=== PATIENT | female | born 1960 | race Caucasian/White ===

== ENCOUNTER → 2019-05-29 11:09 | Outpatient (CLI) | payer MEDICARE, SELFPAY ==
[2019-05-29 11:54] LABS: Alanine Aminotransferase 27 U/L (12-78); Albumin Level 3.6 gm/dL (3.4-5.0); Alkaline Phosphatase 108 U/L (46-116); Aspartate Amino Transferase 15 U/L (15-37); Bilirubin,Direct 0.1 mg/dL (0.0-0.2); Bilirubin,Indirect 0.2 mg/dL (0.0-0.9); Bilirubin,Total 0.3 mg/dL (0.2-1.0); Chol/HDL Ratio 5.2 (1-3.5); Cholesterol 193 mg/dL (140-200); HDL Cholesterol 37 mg/dL (29-89); LDL Cholesterol 124 mg/dL (0-130); Total Protein,Serum 7.4 gm/dL (6.4-8.2); Triglycerides 160 mg/dL (30-200); VLDL Cholesterol 32 mg/dL (0-40)
== END ==
PROVIDERS: Visit Provider Internal Medicine Cardiovascular Disease
DX: E78.5 Hyperlipidemia, unspecified (principal); I25.10 Atherosclerotic heart disease of native coronary artery without angina pectoris
CPT/HCPCS: 36415; 80061; 80076

== ENCOUNTER 2019-05-31 09:49 | Observation (INO) ==
--- NOTE | 2019-05-31 09:56 | Emergency Department Note ---
ED Disposition Clinical Impression: Chest pain Disposition: Admitted As Inpatient Condition on Discharge: Good - Critical Care Critical Care Time: No Attestation: On 05/31/19, the high probability of a clinically significant, sudden or life threatening deterioration of the following system(s) required my full and direct attention, intervention and personal management. The time I documented below is in addition to time spent performing reported procedures but includes the following listed in this critical care notation. Medical Decision Making - Chandu Inquiry Pt receiving controlled substance: No Vital Signs: 05/31/19 09:49 Temperature 98.5 F Temperature Source Oral Pulse Rate [Right Brachial] 77 Respiratory Rate 22 Blood Pressure [Right Arm] 101/70 L Blood Pressure Mean [Right Arm] 80 Blood Pressure Source [Right Arm] Automatic Cuff Blood Pressure Position [Right Arm] Sitting 02 Sat by Pulse Oximetry 100 Oxygen Delivery Method Room Air - Lab Data Lab Results 05/31/19 09:54: Troponin I < 0.02 05/31/19 09:54: WBC 7.9, RBC 5.26, Hgb 13.4, Hct 44.3, MCV 84.1, MCH 25.5 L, MCHC 30.3 L, RDW 16.0, Plt Count 327, MPV 6.9 L, Neut % (Auto) 68.0, Lymph % (A uto) 22.5, [place] % (Auto) 5.5, Eos % (Auto) 2.8, Baso % (Auto) 1.3, Neut # (Auto) 5.4, Lymph # (Auto) 1.8, [place] # (Auto) 0.4, Eos # (Auto) 0.2, Baso # (Auto) 0.1 05/31/19 09:54: Sodium 140, Potassium 3.9, Chloride 103, Carbon Dioxide 29, Anion Gap 11.9, BUN 15, Creatinine 1.24 H, Estimated Creat Clear 80, Estimated GFR 44 L, Est GFR ( Amer) 54 L, Glucose 132 H, Calcium 8.9, Total Bilirubin 0.2, AST 10 L D, ALT 22, Alkaline Phosphatase 114, Total Protein 7.6, Albumin 3.5, Globulin 4.1 H, Albumin/Globulin Ratio 0.9 L 05/31/19 09:54: Lipase 129 Result diagrams: 05/31/19 09:54 05/31/19 09:54 Orders (Tests/Meds): ED MEDICATIONS Generic Name Dose Route Start Last Admin Trade Name Freq PRN Reason Stop Dose Admin Nitroglycerin 0.4 mg 05/31/19 10:00 Nitrostat 0.4mg Sl Tablet SL 06/01/19 10:00 Q5MINP PRN Chest Pain Discontinued Medications Generic Name Dose Route Start Last Admin Trade Name Freq PRN Reason Stop Dose Admin Aspirin 324 mg 05/31/19 10:00 05/31/19 10:07 Aspirin 81mg Chewable Tablet PO 05/31/19 10:01 243 mg ONCE ONE Administration ORDERS Category Date Time Status XR chest portable Stat Exams 05/31/19 10:00 Taken Troponin I Q3H Lab 05/31/19 13:00 Ordered Troponin I Q3H Lab 05/31/19 16:00 Ordered - Radiology Data #1 Image(s): Chest Image Reviewed: Yes I reviewed the patient's radiology image Preliminary Findings: Normal/NAD - ECG Data Tracing #1 EKG shows a sinus rhythm with a rate of 70. No acute ST segment elevation or depression. No hyperacute T waves. Normal intervals. EKG interpreted by me. ECG initial impression date: 05/31/19 ECG initial impression time: 09:47 Medical Decision Narrative: Patient remains chest pain-free while under my care. Her EKG shows no signs of acute ischemia, first troponin negative and chest x-ray shows no signs of pneumonia, pneumothorax, widened mediastinum that would suggest dissection or florid pulmonary edema. Vital signs are stable. I discussed this case with cardiology on-call, Paxton Gerardo, who has ordered echo and repeat troponins, advises admission for stress test later today and for further observation. I discussed this case with Dr. Ro, on-call for hospitalist, and patient will be admitted for further management. Chest Pain HPI - General Chief Complaint: Chest Pain Stated Complaint: chest pain Time Seen by Provider: 05/31/19 09:56 Mode of Arrival: Ambulatory Source of Information: Patient Limitations: No Limitations - History of Present Illness HPI narrative: This is a 58-year-old female with a past medical history significant for hypertension, hyperlipidemia, coronary artery disease who presents to the emergency department for substernal and epigastric burning chest pain that is nonradiating and has been present intermittently over the last week. She saw her weight and test bar clerk for this 3 days ago. They changed her medications thinking it might be related to heartburn. She is currently taking omeprazole and also just started Pepcid. She states that her symptoms go away whenever she uses nitroglycerin. No shortness of breath, vomiting, diaphoresis. Last cardiac catheterization was in 2015 when she had cardiac stents placed. Nothing seems to make her chest pain better or worse other than the nitroglycerin. No recent fevers, cough. - Related Data Home Medications Medication Instructions Recorded Confirmed albuterol sulfate HFA 90 1 puff INHALATION Q4-6H PRN 09/25/17 05/31/19 mcg/actuation aerosol inhaler aspirin 81 mg tablet,delayed 81 mg PO QDAY 09/25/17 05/31/19 release fluticasone propionate 50 50 mcg INTRANASAL QDAY PRN 09/25/17 05/31/19 mcg/actuation nasal spray,suspension ferrous sulfate 325 mg (65 mg 325 mg PO TID tab 10/09/17 05/31/19 iron) tablet nortriptyline 25 mg capsule 25 mg PO QHS 11/11/17 05/31/19 ropinirole 3 mg tablet 1 mg PO TID tab 04/09/18 05/31/19 Isosorbide Mononitrate [Isosorbide 120 mg PO QAM 08/29/18 05/31/19 Mononitrate ER] Spironolactone [Spironolactone 50 mg PO QDAY 08/29/18 05/31/19 25mg Tab] dulaglutide 0.75 mg/0.5 mL 0.75 mg SQ QWEEK 05/28/19 05/31/19 subcutaneous pen injector Atorvastatin Calcium [Lipitor 80mg 80 mg PO DAILY 05/31/19 05/31/19 Tablet] Clopidogrel Bisulfate [Plavix 75mg 75 mg PO DAILY 05/31/19 05/31/19 Tab] Famotidine [Acid Superintendent Renting Managing] 20 mg PO DAILY 05/31/19 05/31/19 Previous Rx's Medication Instructions Recorded nitroglycerin 0.4 mg sublingual 0.4 mg SUBLINGUAL Q5M PRN #30 tab 10/08/18 tablet furosemide 40 mg tablet 40 mg PO DAILY #30 tab 11/12/18 pantoprazole 40 mg tablet,delayed 40 mg PO DAILY #90 tab 01/04/19 release carvedilol 25 mg tablet 25 mg PO BID #60 tab 03/08/19 Allergies Allergy/AdvReac Type Severity Reaction Status Date / Time codeine [CODEINE] Allergy Unknown I-RASH Verified 05/28/19 10:56 [facility] History - Hepatitis A Screen Attestation statement:: This patient has been screened for Hepatitis A risk factors. I have reviewed the patient's past medical history: Yes Medical History: Reports:: Anxiety, Congestive Heart Failure, Coronary Artery Disease, Depression, Gastroesophageal Reflux Disease(GERD), Hyperlipidemia, Hypertension Denies:: Diabetes Mellitus Type 1, Diabetes Mellitus Type 2 Other Surgeries: Yes: Angioplasty, Appendectomy, Colonoscopy, Coronary Stent, Dilation and Curettage, Other - Social History Smoking Status: Never smoker Alcohol Intake: never Alcohol Intake Frequency:: other Substance Use Type: denies use Occupational Status: unemployed - Psychiatric History Pschychiatric History:: Reports:: Anxiety, Depression Family Hx:: Coronary Artery Disease ROS Obtained: Yes All systems reviewed & no additional complaints Physical Exam - General General appearance: alert, in no apparent distress - Head Head exam: atraumatic, normocephalic, normal inspection - Eye Eye exam: Present: normal appearance, PERRL, EOMI - ENT ENT exam: Present: normal oropharynx, mucous membranes moist - Neck Neck exam: Present: normal inspection, trachea midline - Chest Chest inspection: Present: normal inspection, symmetric chest wall rise. Absent: tenderness - Respiratory Respiratory exam: Present: normal lung sounds bilaterally. Absent: respiratory distress - Cardiovascular Cardiovascular exam: Present: regular rate, normal rhythm. Absent: JVD - Abdominal Exam Abdominal exam: Present: soft, normal bowel sounds. Absent: distention, tenderness, guarding - Back Exam Back exam: Present: normal inspection. Absent: tenderness - Neurological Exam Neurological exam: Present: alert, oriented X3 - Psychiatric Psychiatric exam: Present: normal affect, normal mood - Skin Skin exam: Present: warm, dry, intact, normal color
[2019-05-31 10:18] LABS: Basophils # 0.1 K/mm3 (0-0.2); Basophils % 1.3 % (0.1-2.0); Eosinophils # 0.2 K/mm3 (0.0-0.4); Eosinophils % 2.8 % (0.1-12.0); Hematocrit 44.3 % (37.0-47.0); Hemoglobin 13.4 g/dL (12.2-16.2); Lymphocytes # 1.8 K/mm3 (0.7-4.5); Lymphocytes % 22.5 % (10-50); Mean Corpuscular HGB Conc 30.3 g/dL (31.8-35.4); Mean Corpuscular Volume 84.1 fl (81-99); Mean Platelet Volume 6.9 fl (7.4-10.4); Monocytes # 0.4 K/mm3 (0.1-1.0); Monocytes % 5.5 % (1.7-9.3); Neutrophils # 5.4 K/mm3 (1.8-7.8); Platelet Count 327 K/mm3 (142-424); Red Blood Count 5.26 M/mm3 (4.20-5.40); White Blood Count 7.9 K/mm3 (4.8-10.8)
[2019-05-31 10:24] LABS: Albumin Level 3.5 gm/dL (3.4-5.0); Albumin/Globulin Ratio 0.9 (1.1-1.8); Anion Gap 11.9 mEq/L (5-15); Bilirubin,Total 0.2 mg/dL (0.2-1.0); Calcium 8.9 mg/dL (8.5-10.1); Globulin 4.1 gm/dl (1.3-3.2); Total Protein,Serum 7.6 gm/dL (6.4-8.2)
--- NOTE | 2019-05-31 11:27 | Consult Report ---
History of Present Illness Consult date: 05/31/19 Consult reason: chest pain Chief complaint: chest pain Additional Medical History:: 1. Anxiety/depression 2. HTN A. History of diastolic CHF 3. HLD A. Reported intolerance to statins 4. CAD A. SENA to LAD/bifurcating diagonal, 2013 B. SENA to left main/LAD, 2014 C. SENA to Cx and LAD, 2015 D. LHC, 11/2016, patent stents, subtotally occluded small, nondominant circ, moderate disease in the RCA, normal EF,Normal LVEDP 5. GILSON with CPAP use 6. Sarcoidosis A. followed by vp transportation at [facility] 7. Restless legs 8. Obesity History of present illness: This is a 58-year-old female with a past medical history significant for hypertension, hyperlipidemia, coronary artery disease who presents to the emergency department for substernal and epigastric burning chest pain that is nonradiating and has been present intermittently over the last week. She saw her employer relations representative for this 3 days ago. They changed her medications thinking it might be related to heartburn. She is currently taking omeprazole and also just started Pepcid. She states that her symptoms go away whenever she uses nitroglycerin. No shortness of breath, vomiting, diaphoresis. Last cardiac catheterization was in 2015 when she had cardiac stents placed. Nothing seems to make her chest pain better or worse other than the nitroglycerin. No recent fevers, cough The above per Dr. Cortes Chest pain as described above without radiation, nausea or vomiting. Denies diaphoresis. Symptoms similar to prior angina pain and can occur with activity (pulling on things or exertional activities) or at rest (waking her from sleep). Symptoms don't last long before she takes a NTG SL to get rid of the pain. Changes made at office visit last week have not made an improvement in symptoms. She relates what sounds like a history of esophageal stricture and dilatation in the distant past. No recent follow up with GI. [facility] History Medical History: Reports:: Anxiety, Congestive Heart Failure, Coronary Artery Disease, Depression, Gastroesophageal Reflux Disease(GERD), Hyperlipidemia, Hypertension Denies:: Diabetes Mellitus Type 1, Diabetes Mellitus Type 2 *Have you ever received a pneumonia vaccine?: No *Have you received a flu vaccine this season?: No Other Surgeries: Yes: Angioplasty, Appendectomy, Colonoscopy, Coronary Stent, Dilation and Curettage, Other - *Social History Smoking Status: Never smoker Alcohol Intake: never Alcohol Intake Frequency:: other Substance Use Type: denies use *Occupational Status:: unemployed *Travel in the last 8 weeks: Inside the [place] - Psychiatric History Pschychiatric History:: Reports:: Anxiety, Depression Family Hx:: Coronary Artery Disease Meds Home Medications Medication Instructions Recorded Confirmed Type albuterol sulfate HFA 90 1 puff INHALATION Q4-6H PRN 09/25/17 05/31/19 History mcg/actuation aerosol inhaler aspirin 81 mg tablet,delayed 81 mg PO QDAY 09/25/17 05/31/19 History release fluticasone propionate 50 50 mcg INTRANASAL QDAY PRN 09/25/17 05/31/19 History mcg/actuation nasal spray,suspension ferrous sulfate 325 mg (65 mg 325 mg PO TID tab 10/09/17 05/31/19 History iron) tablet nortriptyline 25 mg capsule 25 mg PO QHS 11/11/17 05/31/19 History ropinirole 3 mg tablet 1 mg PO TID tab 04/09/18 05/31/19 History Isosorbide Mononitrate [Isosorbide 120 mg PO QAM 08/29/18 05/31/19 History Mononitrate ER] Spironolactone [Spironolactone 50 mg PO QDAY 08/29/18 05/31/19 History 25mg Tab] nitroglycerin 0.4 mg sublingual 0.4 mg SUBLINGUAL Q5M PRN #30 tab 10/08/1805/31 Rx tablet furosemide 40 mg tablet 40 mg PO DAILY #30 tab 11/12/18 05/31/19 Rx pantoprazole 40 mg tablet,delayed 40 mg PO DAILY #90 tab 01/04/19 05/31/19 Rx release carvedilol 25 mg tablet 25 mg PO BID #60 tab 03/08/19 05/31/19 Rx dulaglutide 0.75 mg/0.5 mL 0.75 mg SQ QWEEK 05/28/19 05/31/19 History subcutaneous pen injector Atorvastatin Calcium [Lipitor 80mg 80 mg PO DAILY 05/31/19 05/31/19 History Tablet] Clopidogrel Bisulfate [Plavix 75mg 75 mg PO DAILY 09/30/19 09/30/19 History Tab] Famotidine [Acid Service Bar Cashier] 20 mg PO DAILY 05/31/19 05/31/19 History Allergies Allergy/AdvReac Type Severity Reaction Status Date / Time codeine [CODEINE] Allergy Unknown I-RASH Verified 05/28/19 10:56 Exam Vital signs and Labs for Last 24 Hours: Temp Pulse Resp BP Pulse Ox 98.5 F 77 22 101/70 L 100 05/31/19 09:49 05/31/19 09:49 05/31/19 09:49 05/31/19 09:49 05/31/19 09:49 Laboratory Results - last 24 hr 05/31/19 09:54: Troponin I < 0.02 05/31/19 09:54: WBC 7.9, RBC 5.26, Hgb 13.4, Hct 44.3, MCV 84.1, MCH 25.5 L, MCHC 30.3 L, RDW 16.0, Plt Count 327, MPV 6.9 L, Neut % (Auto) 68.0, Lymph % (Auto) 22.5, [place] % (Auto) 5.5, Eos % (Auto) 2.8, Baso % (Auto) 1.3, Neut # (Auto) 5.4, Lymph # (Auto) 1.8, [place] # (Auto) 0.4, Eos # (Auto) 0.2, Baso # (Auto) 0.1 05/31/19 09:54: Sodium 140, Potassium 3.9, Chloride 103, Carbon Dioxide 29, Anion Gap 11.9, BUN 15, Creatinine 1.24 H, Estimated Creat Clear 80, Estimated GFR 44 L, Est GFR ( Amer) 54 L, Glucose 132 H, Calcium 8.9, Total Bilirubin 0.2, AST 10 L D, ALT 22, Alkaline Phosphatase 114, Total Protein 7.6, Albumin 3.5, Globulin 4.1 H, Albumin/Globulin Ratio 0.9 L 05/31/19 09:54: Lipase 129 I & O for Last 24 hours: Intake & Output 05/28/19 05/29/19 05/30/19 05/31/19 11:59 11:59 11:59 11:59 Weight 230 lb Assessment and Plan (1) Angina at rest Current visit: Yes Status: Acute Category: Medical Code(s): I20.8 - Other forms of angina pectoris (2) History of coronary artery stent placement Current visit: Yes Status: Acute Category: Surgical Code(s): Z95.5 - Presence of coronary angioplasty implant and graft (3) Dyspepsia Current visit: No Status: Acute Category: Medical Code(s): R10.13 - Epigastric pain (4) GILSON (obstructive sleep apnea) Current visit: No Status: Acute Category: Medical Code(s): G47.33 - Obstructive sleep apnea (adult) (pediatric) (5) Obesity (BMI 30-39.9) Current visit: No Status: Acute Category: Medical Code(s): E66.9 - Obesity, unspecified (6) CAD (coronary artery disease) Current visit: No Status: Chronic Qualifiers: Coronary Disease-Associated Artery/Lesion type: [place] artery [place] vs. transplanted heart: [place] heart Associated angina: without angina Qualified Code(s): I25.10 - Atherosclerotic heart disease of [place] coronary artery without angina pectoris Category: Medical Code(s): I25.10 - Atherosclerotic heart disease of [place] coronary artery without angina pectoris (7) HLD (hyperlipidemia) Current visit: No Status: Chronic Qualifiers: Hyperlipidemia type: unspecified Qualified Code(s): E78.5 - Hyperlipidemia, unspecified Category: Medical Code(s): E78.5 - Hyperlipidemia, unspecified (8) HTN (hypertension) Current visit: No Status: Chronic Qualifiers: Hypertension type: essential hypertension Qualified Code(s): I10 - Essential (primary) hypertension Category: Medical Code(s): I10 - Essential (primary) hypertension (9) Sarcoidosis Current visit: No Status: Chronic Category: Medical Code(s): D86.9 - Sarcoidosis, unspecified - Assessment and plan all Dx Assessment and Plan for all problems:: 1. Admit for observation and rule out VT. If second troponin is normal then we will proceed with Lexiscan Myoview this evening. If evidence of ischemia, then will proceed with cardiac cath in AM. 2. Continue home medications 3. If stress test is negative then patient will need referral for GI evaluation.
--- NOTE | 2019-05-31 16:33 | Consult Report ---
*Admission Date: 05/31/19 *Reason for consult:: Epigastric pain *History of present illness: This is a 58-year-old female with a PMH of HTN, HL. CAD that is post cardiac cath with stents placed in 2016, GERD who presented to the ER for epigastric burning chest pain that is been getting worse over the course the past week. She and her family report that she has had previous experience with similar chest pain problems. She reports that over the past few weeks she is struggled with a chronic UTI for which she saw a urologist in [place]. She was started on Bactrim, Macrobid and Ceftin ear at the same time to treat said UTI., Then approximately 1 week ago she developed much worse epigastric burning pain that eventually led her to the ER here. She was initially admitted for a cardiac work-up. She has been stable and initial troponin was negative. She had chest x-ray EKG and is scheduled for stress test. She saw her document preparation specialist about 3 days ago who changed her PPI to Pepcid. She has previously been on multiple PPIs at different doses to try to control her reflux. At this point she denies any improvement in her epigastric burning pain with her PPIs but does report it gets better with use of nitroglycerin. Patient denies any changes in her bowel habits, melena or hematochezia. She reports she has a daily bowel movement and sometimes feels as though she fully evacuates. She does however report excessive bloating belching and gassiness. She is had a decreased appetite and nausea vomiting about a week ago. She denies any hematemesis. She does drink three 16 ounce bottles of diet Mountain Dew per day. She does not remember when her last colonoscopy was and reports she is never had an EGD though she related to the document preparation specialist that she may have had esophageal dilatation in the past. Reports she has never seen a electrophysiology nurse practitioner before. She does not take any NSAIDs and she does not take any narcotic pain medication. She is mildly tender to palpation over epigastric area on exam. She has mild distention with gas bloat but otherwise benign abdominal exam. She reports occasional loose stools a couple times per week for which she takes Bentyl. [facility] History Medical History: Reports:: Anxiety, Congestive Heart Failure, Coronary Artery Disease, Depression, Gastroesophageal Reflux Disease(GERD), Hyperlipidemia, Hypertension Denies:: Diabetes Mellitus Type 1, Diabetes Mellitus Type 2 *Have you ever received a pneumonia vaccine?: No *Have you received a flu vaccine this season?: Yes Other Surgeries: Yes: Angioplasty, Appendectomy, Colonoscopy, Coronary Stent, Dilation and Curettage, Other - *Social History Smoking Status: Never smoker Alcohol Intake: never Alcohol Intake Frequency:: other Substance Use Type: denies use *Occupational Status:: unemployed Housing: house *Travel in the last 8 weeks: None - Psychiatric History Pschychiatric History:: Reports:: Anxiety, Depression Family Hx:: Coronary Artery Disease, Diabetes Review of Systems - Constitutional Reports anorexia, Denies chills, Denies fever(s), Denies weight gain, Denies w eight loss - Eyes Denies blurry vision, Denies change in vision, Denies sensitivity to light - ENT Denies abnormal hearing, Denies dizziness, Denies difficulty swallowing, Denies hoarseness, Denies pain with swallowing, Denies throat swelling - *Cardiovascular Reports chest pain, Denies shortness of breath, Denies lightheadedness, Denies radiating jaw, neck or arm pain - *Respiratory Denies chest congestion, Denies cough, Denies shortness of breath - *Gastrointestinal Reports belching, Reports bloating, Reports loose stools, Reports heartburn, Reports loose stools, Reports nausea, Reports vomiting, Denies change in bowel habits, Denies change in stools, Denies constipation, Denies cramping, Denies difficulty swallowing, Denies feeling full early, Denies incontinent of stools, Denies vomiting blood, Denies bright, red blood in stools, Denies black, tarry stools, Denies pain with swallowing - *Musculoskeletal Reports back pain, Denies joint pain, Denies muscle weakness, Denies body aches, Denies tingling - *Neurologic Denies behavioral changes, Denies dizziness, Denies frequent falls, Denies tingling/numbness/burning sensations - Psychiatric Denies anxiety, Denies depression - Hematologic/Lymphatic Denies easy bleeding, Denies easy bruising Meds Home Medications Medication Instructions Recorded Confirmed Type albuterol sulfate HFA 90 1 puff INHALATION Q4-6H PRN 09/25/17 05/31/19 History mcg/actuation aerosol inhaler aspirin 81 mg tablet,delayed 81 mg PO QDAY 09/25/17 05/31/19 History release fluticasone propionate 50 50 mcg INTRANASAL QDAY PRN 09/25/17 05/31/19 History mcg/actuation nasal spray,suspension ferrous sulfate 325 mg (65 mg 325 mg PO TID tab 10/09/17 05/31/19 History iron) tablet nortriptyline 25 mg capsule 25 mg PO QHS 11/11/17 05/31/19 History Isosorbide Mononitrate [Isosorbide 120 mg PO QAM 08/29/18 05/31/19 History Mononitrate ER] Spironolactone [Spironolactone 50 mg PO QDAY 08/29/18 05/31/19 History 25mg Tab] nitroglycerin 0.4 mg sublingual 0.4 mg SUBLINGUAL Q5M PRN #30 tab 10/08/18 05/31/19 Rx tablet furosemide 40 mg tablet 40 mg PO DAILY #30 tab 11/12/18 05/31/19 Rx pantoprazole 40 mg tablet,delayed 40 mg PO DAILY #90 tab 01/04/19 05/31/19 Rx release carvedilol 25 mg tablet 25 mg PO BID #60 tab 03/08/19 05/31/19 Rx dulaglutide 0.75 mg/0.5 mL 0.75 mg SQ QWEEK 05/28/19 05/31/19 History subcutaneous pen injector Atorvastatin Calcium [Lipitor 80mg 80 mg PO DAILY 05/31/19 05/31/19 History Tablet] Clopidogrel Bisulfate [Plavix 75mg 75 mg PO DAILY 05/31/19 05/31/19 History Tab] Famotidine [Acid Gin Clerk] 20 mg PO DAILY 05/31/19 05/31/19 History Ropinirole HCl 1 mg PO TID 05/31/19 05/31/19 History Allergies Allergy/AdvReac Type Severity Reaction Status Date / Time codeine [CODEINE] Allergy Unknown I-RASH Verified 05/28/19 10:56 Exam Vital signs and Labs for Last 24 Hours: Temp Pulse Resp BP Pulse Ox 97.0 F L 72 18 111/67 96 05/31/19 13:28 05/31/19 13:28 05/31/19 13:28 05/31/19 13:28 05/31/19 11:56 Laboratory Results - last 24 hr 05/31/19 09:54: Troponin I < 0.02 05/31/19 09:54: WBC 7.9, RBC 5.26, Hgb 13.4, Hct 44.3, MCV 84.1, MCH 25.5 L, MCHC 30.3 L, RDW 16.0, Plt Count 327, MPV 6.9 L, Neut % (Auto) 68.0, Lymph % (Auto) 22.5, [place] % (Auto) 5.5, Eos % (Auto) 2.8, Baso % (Auto) 1.3, Neut # (Auto) 5.4, Lymph # (Auto) 1.8, [place] # (Auto) 0.4, Eos # (Auto) 0.2, Baso # (Auto) 0.1 05/31/19 09:54: Sodium 140, Potassium 3.9, Chloride 103, Carbon Dioxide 29, Anion Gap 11.9, BUN 15, Creatinine 1.24 H, Estimated Creat Clear 80, Estimated GFR 44 L, Est GFR ( Amer) 54 L, Glucose 132 H, Calcium 8.9, Total Bilirubin 0.2, AST 10 L D, ALT 22, Alkaline Phosphatase 114, Total Protein 7.6, Albumin 3.5, Globulin 4.1 H, Albumin/Globulin Ratio 0.9 L 05/31/19 09:54: Lipase 129 05/31/19 13:00: Troponin I < 0.02 I & O for Last 24 hours: Intake & Output 05/29/19 05/30/19 05/31/19 06/01/19 11:59 11:59 11:59 11:59 Weight 104.326 kg - Constitutional no acute distress, obese, cooperative - *Routine HEENT Exam Head: Present: normocephalic, atraumatic Eye: Present: EOMI ENT: Present: mucous membranes moist, nares patent, external ear normal - *Routine Neck Exam Present: supple, full ROM - Routine Chest/Breast/Axilla Exam Chest wall: Absent: tenderness, mass - *Routine Respiratory Exam Present: CTA bilaterally. Absent: accessory muscle use, decreased breath sounds, rhonchi, stridor, wheezes - *Routine Cardiovascular Exam Present: RRR. Absent: murmur, gallop, rubs - *Routine Abdominal Exam Present: soft, normoactive bowel sounds, tenderness, distended, obese. Absent: guarding, mass, hernia Comments: mild ttp epigastric area, mild distention with gas/bloat - *Routine Extremities Exam Present: full ROM, pulses intact. Absent: cyanosis, clubbing, edema - *Routine Skin Exam Present: intact, dry, warm. Absent: cyanosis - *Routine Neurological Exam Present: alert, oriented X3 Internal Medicine - CN: Reslt - Labs CBC & Chem 7: 05/31/19 09:54 05/31/19 09:54 Labs: Short CBC 05/31/19 Range/Units 09:54 WBC 7.9 (4.8-10.8) K/mm3 Hgb 13.4 (12.2-16.2) g/dL Hct 44.3 (37.0-47.0) % Plt Count 327 (142-424) K/mm3 BMP 05/31/19 09:54 Sodium 140 Potassium 3.9 Chloride 103 Carbon Dioxide 29 BUN 15 Creatinine 1.24 H Glucose 132 H Calcium 8.9 Cardiac Enzymes 05/31/19 05/31/19 Range/Units 09:54 13:00 Troponin I < 0.02 < 0.02 (0.00-0.06) ng/ml Liver Function 05/31/19 Range/Units 09:54 Total Bilirubin 0.2 (0.2-1.0) mg/dL AST 10 L D (15-37) U/L ALT 22 (12-78) U/L Alkaline Phosphatase 114 (46-116) U/L Albumin 3.5 (3.4-5.0) gm/dL Assessment and Plan (1) Angina at rest Current visit: Yes Status: Acute Category: Medical Code(s): I20.8 - Other forms of angina pectoris (2) History of coronary artery stent placement Current visit: Yes Status: Acute Category: Surgical Code(s): Z95.5 - Presence of coronary angioplasty implant and graft (3) Dyspepsia Current visit: No Status: Acute Category: Medical Code(s): R10.13 - Epigastric pain History of burning epigastric pain associated with bloating/belching and gassiness and nausea with vomiting 1 week ago. This is not improved with changing PPIs. She is drinking three 16 ounce diet mountain dews per day. Results from her nuclear med stress test are currently unavailable to rule out cardiac cause of her epigastric burning pain that she reports only improves with nitroglycerin. If cardiac cause is not found, this is likely GERD and dyspepsia. Recommend she continue her current PPI and stop all soda consumption. I would like to see her in the clinic as an outpatient after discharge. She would likely benefit from some dietary changes and possible an outpatient EGD which we can discuss at her clinic visit. (4) GILSON (obstructive sleep apnea) Current visit: No Status: Acute Category: Medical Code(s): G47.33 - Obstructive sleep apnea (adult) (pediatric) (5) Obesity (BMI 30-39.9) Current visit: No Status: Acute Category: Medical Code(s): E66.9 - Obesity, unspecified (6) CAD (coronary artery disease) Current visit: No Status: Chronic Qualifiers: Qualified Code(s): I25.10 - Atherosclerotic heart disease of [place] coronary artery without angina pectoris Category: Medical Code(s): I25.10 - Atherosclerotic heart disease of [place] coronary artery without angina pectoris (7) HLD (hyperlipidemia) Current visit: No Status: Chronic Qualifiers: Qualified Code(s): E78.5 - Hyperlipidemia, unspecified Category: Medical Code(s): E78.5 - Hyperlipidemia, unspecified (8) HTN (hypertension) Current visit: No Status: Chronic Qualifiers: Qualified Code(s): I10 - Essential (primary) hypertension Category: Medical Code(s): I10 - Essential (primary) hypertension (9) Sarcoidosis Current visit: No Status: Chronic Category: Medical Code(s): D86.9 - Sarcoidosis, unspecified
--- NOTE | 2019-05-31 16:40 | History & Physical Report ---
*Admission Date: 05/31/19 *Chief complaint: chest pain *History of present illness: Ms. Walters is a 58-year-old female with a history of coronary artery disease, hypertension, hyperlipidemia, frequent urinary tract infections, obstructive sleep apnea, restless legs, and diabetes with neuropathy who presented to the emergency room this a.m. with substernal and epigastric burning chest pain that was nonradiating. She denies shortness of breath, palpitations, nausea, and diaphoresis. She states she has been having intermittent chest pain over the past week and did see her product delivery specialist in the office last week who made some changes in her medications. He changed her to Pepcid, decreased her Imdur, and discontinued her statin due to possible causes of her heartburn. Patient describes her chest discomfort as resolving with nitroglycerin. She states the pain awakened her about 3 AM this morning and again was relieved by nitroglycerin She then presented to the emergency room for further evaluation and treatment. Last cardiac catheterization was in 2016 at which time she had stents placed. She felt that her symptoms were similar to her prior anginal pain and occurred with activity. She has not seen any improvement in her symptoms with her medication changes. She also has a history of esophageal stricture with dilatation in the distant past. She has not had a recent GI follow-up. At the time of this exam patient has had her stress test and echocardiogram with results pending. Currently she has no epigastric or chest pain. She has been seen by cardiology and gastroenterology. Troponin I's have been normal thus far. 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 Denies: Sickle Cell Disease Comment:: Obstructive sleep apnea for which she does wear CPAP Other Surgeries: Yes: Angioplasty, Appendectomy, Colonoscopy, Coronary Stent, Dilation and Curettage, Other - *Social History Smoking Status: Never smoker Alcohol Intake: never Alcohol Intake Frequency:: other Substance Use Type: denies use *Occupational Status:: unemployed Housing: house Household Members: spouse *Travel in the last 8 weeks: None - Psychiatric History Pschychiatric History:: Reports:: Anxiety, Depression Family Hx:: Coronary Artery Disease, Diabetes Review of Systems - Constitutional Denies fever(s) - ENT Denies ear pain, Denies sore throat - *Cardiovascular Reports chest pain, Reports chest pain at rest, Reports chest pain with activity, Reports leg swelling, Denies excessive sweating, Denies shortness of breath - *Respiratory Denies cough - *Gastrointestinal Reports abdominal pain (Epigastrium), Reports belching, Reports bloating, Reports change in bowel habits, Reports loose stools (At times), Reports heartburn, Reports excessive passing of gas, Reports constant urge to pass stool, Denies coffee ground vomit, Denies constipation, Denies vomiting blood, Denies bright, red blood in stools - *Genitourinary Denies difficulty urinating - *Musculoskeletal Comments: Diabetic neuropathy makes it difficult for her to walk at times - *Neurologic Reports unsteadiness, Denies seizure-like activity Meds Home Medications Medication Instructions Recorded Confirmed Type albuterol sulfate HFA 90 1 puff INHALATION Q4-6H PRN 09/25/17 05/31/19 History mcg/actuation aerosol inhaler aspirin 81 mg tablet,delayed 81 mg PO QDAY 09/25/17 05/31/19 History release fluticasone propionate 50 50 mcg INTRANASAL QDAY PRN 09/25/17 05/31/19 History mcg/actuation nasal spray,suspension ferrous sulfate 325 mg (65 mg 325 mg PO TID tab 10/09/17 05/31/19 History iron) tablet nortriptyline 25 mg capsule 25 mg PO QHS 11/11/17 05/31/19 History Isosorbide Mononitrate [Isosorbide 120 mg PO QAM 08/29/18 05/31/19 History Mononitrate ER] Spironolactone [Spironolactone 50 mg PO QDAY 08/29/18 05/31/19 History 25mg Tab] nitroglycerin 0.4 mg sublingual 0.4 mg SUBLINGUAL Q5M PRN #30 tab 10/08/18 05/31/19 Rx tablet furosemide 40 mg tablet 40 mg PO DAILY #30 tab 11/12/18 05/31/19 Rx pantoprazole 40 mg tablet,delayed 40 mg PO DAILY #90 tab 01/04/19 05/31/19 Rx release carvedilol 25 mg tablet 25 mg PO BID #60 tab 03/08/19 05/31/19 Rx dulaglutide 0.75 mg/0.5 mL 0.75 mg SQ QWEEK 05/28/19 05/31/19 History subcutaneous pen injector Atorvastatin Calcium [Lipitor 80mg 80 mg PO DAILY 05/31/19 05/31/19 History Tablet] Clopidogrel Bisulfate [Plavix 75mg 75 mg PO DAILY 05/31/19 05/31/19 History Tab] Famotidine [Acid Blocker And Polisher] 20 mg PO DAILY 05/31/19 05/31/19 History Ropinirole HCl 1 mg PO TID 05/31/19 05/31/19 History Allergies Allergy/AdvReac Type Severity Reaction Status Date / Time codeine [CODEINE] Allergy Unknown I-RASH Verified 05/28/19 10:56 Exam Vital signs and Labs for Last 24 Hours: Temp Pulse Resp BP Pulse Ox 97.0 F L 72 18 111/67 96 05/31/19 13:28 05/31/19 13:28 05/31/19 13:28 05/31/19 13:28 05/31/19 11:56 Laboratory Results - last 24 hr 05/31/19 09:54: Troponin I < 0.02 05/31/19 09:54: WBC 7.9, RBC 5.26, Hgb 13.4, Hct 44.3, MCV 84.1, MCH 25.5 L, MCHC 30.3 L, RDW 16.0, Plt Count 327, MPV 6.9 L, Neut % (Auto) 68.0, Lymph % (Auto) 22.5, [place] % (Auto) 5.5, Eos % (Auto) 2.8, Baso % (Auto) 1.3, Neut # (Auto) 5.4, Lymph # (Auto) 1.8, [place] # (Auto) 0.4, Eos # (Auto) 0.2, Baso # ( Auto) 0.1 05/31/19 09:54: Sodium 140, Potassium 3.9, Chloride 103, Carbon Dioxide 29, Anion Gap 11.9, BUN 15, Creatinine 1.24 H, Estimated Creat Clear 80, Estimated GFR 44 L, Est GFR ( Amer) 54 L, Glucose 132 H, Calcium 8.9, Total Bilirubin 0.2, AST 10 L D, ALT 22, Alkaline Phosphatase 114, Total Protein 7.6, Albumin 3.5, Globulin 4.1 H, Albumin/Globulin Ratio 0.9 L 05/31/19 09:54: Lipase 129 05/31/19 13:00: Troponin I < 0.02 I & O for Last 24 hours: Intake & Output 05/29/19 05/30/19 05/31/19 06/01/19 11:59 11:59 11:59 11:59 Weight 230 lb Radiology Reports for the Last 24 Hours: Chest x-ray, echocardiogram, myocardial perfusion scan stress results are pending - Constitutional no acute distress, obese Comments: Appears a little anxious - *Routine HEENT Exam Head: Present: normocephalic, atraumatic Eye: Present: PERRL. Absent: conjunctival icterus, scleral injection ENT: Present: mucous membranes moist, oropharynx clear - *Routine Neck Exam Present: supple. Absent: carotid bruit, lymphadenopathy, thyromegaly - *Routine Respiratory Exam Present: CTA bilaterally (Anteriorly and posteriorly) - *Routine Cardiovascular Exam Present: RRR - *Routine Abdominal Exam Present: soft, normoactive bowel sounds, tenderness (Epigastrium), obese. A bsent: guarding, organomegaly - *Routine Extremities Exam Present: pulses intact. Absent: edema, calf tenderness - *Routine Neurological Exam Present: alert, oriented X3 Assessment and Plan (1) Angina at rest Current visit: Yes Status: Acute Category: Medical Code(s): I20.8 - Other forms of angina pectoris (2) History of coronary artery stent placement Current visit: Yes Status: Acute Category: Surgical Code(s): Z95.5 - Presence of coronary angioplasty implant and graft (3) Dyspepsia Current visit: No Status: Acute Category: Medical Code(s): R10.13 - Epigastric pain (4) GILSON (obstructive sleep apnea) Current visit: No Status: Acute Category: Medical Code(s): G47.33 - Obstructive sleep apnea (adult) (pediatric) (5) Obesity (BMI 30-39.9) Current visit: No Status: Acute Category: Medical Code(s): E66.9 - Obesity, unspecified (6) CAD (coronary artery disease) Current visit: No Status: Chronic Qualifiers: Coronary Disease-Associated Artery/Lesion type: [place] artery [place] vs. transplanted heart: [place] heart Associated angina: without angina Qualified Code(s): I25.10 - Atherosclerotic heart disease of [place] coronary artery wi thout angina pectoris Category: Medical Code(s): I25.10 - Atherosclerotic heart disease of [place] coronary artery without angina pectoris (7) HLD (hyperlipidemia) Current visit: No Status: Chronic Qualifiers: Hyperlipidemia type: unspecified Qualified Code(s): E78.5 - Hyperlipidemia, unspecified Category: Medical Code(s): E78.5 - Hyperlipidemia, unspecified (8) HTN (hypertension) Current visit: No Status: Chronic Qualifiers: Hypertension type: essential hypertension Qualified Code(s): I10 - Essential (primary) hypertension Category: Medical Code(s): I10 - Essential (primary) hypertension (9) Sarcoidosis Current visit: No Status: Chronic Category: Medical Code(s): D86.9 - Sarcoidosis, unspecified - Assessment and plan all Dx Assessment and Plan for all problems:: Additional testing and care will be dependent upon results of stress test. Cardiology to follow. She has been seen by gastroenterology. Pepcid has been started as well as her cardiac meds.
--- NOTE | 2019-05-31 18:47 | Cardiology Report ---
APPROVED REPORT EXAM: Comprehensive 2D, Doppler, and color-flow Echocardiogram Workforce Management Consultant: Echo Arndt RDCS Ht: 5 ft 7 in Wt: 230lbs BSA: 2.15 BP: 101/70 mmHg Indications: Chest Pain, CAD, Hyperlipidemia, Hypertension/HDD H/O 5 STENTS 2D Dimensions LVOT 1.90 cm (M/F) 1.5-2.5 M-Mode Dimensions RVDd 1.50 cm (0.9-2.6)LA Diam 3.10 cm (1.9-4.0) LVDd 7.10 cm (3.5-5.7)Ao Diam 3.50 cm (2.0-3.7) LVDs 5.80 cm (3.5-5.7)AV Cusp 1.20 cm (1.5-2.6) IVSd 1.00 cm (0.6-1.1)PWd 1.10 cm (0.6-1.1) EF (Teich) 36.70% FS 18.30% EDV (Teich) 264.00 mLESV (Teich) 167.00 mL LV Diastology E/A Ratio 0.9MED E' 4.96 (< 7 cm/sec) E'/MED E' Ratio12.70 (>14)LAT E' 7.99 (<10 cm/sec) E/LAT E' Ratio 7.90 (>14) Mitral Valve MV E Max Bridger. 63.20 (40-130 cm/s)MV A Velocity 73.50 (40-130 cm/s) E/A Ratio 0.90 Left Ventricle Left atrium is mildly enlarged, left ventricle is normal size, mild concentric left ventricular hypertrophy, visually estimated ejection fraction approximately 45%, there is moderate hypokinesis involving the basal septum, inferior basal and posterior lateral wall. Endocardial surfaces are poorly visualized. Grade 1 diastolic dysfunction seen without tissue Doppler evidence of raise left atrial pressure. Right Ventricle Right atrium and right ventricular normal size and contractility. Aortic Valve Aortic valve is thickened and calcified, leaflet continue to display good mobility, there is no aortic stenosis or aortic insufficiency. Mitral Valve Mitral valve is minimally thickened, there is no mitral stenosis, there is mild mitral regurgitation. Tricuspid Valve Tricuspid valve is grossly normal, there is mild tricuspid regurgitation, tricuspid regurgitation jet velocity is inadequate for calculation of the right ventricular systolic pressure. Pulmonic Valve Pulmonic valve is poorly visualized. Great Vessels Aortic root is normal size. Pericardium No significant pericardial effusion noted. Conclusion 1. Mildly enlarged left atrium, normal left ventricular size, mild concentric left ventricular hypertrophy, visually estimated ejection fraction 45% with segmental wall motion abnormality described above, grade 1 diastolic dysfunction seen without tissue Doppler evidence of raise left atrial pressure. Endocardial surfaces are poorly visualized. 2. Thickened and calcified aortic valve without Doppler evidence of aortic stenosis aortic insufficiency. 3. Mild mitral and tricuspid regurgitation 4. No significant pericardial effusion noted. Electronically signed by : Pasha Huang, 05/31/2019 18:46:59
--- NOTE | 2019-06-01 07:24 | Pharmacy Consult Notes ---
[facility] Pharmacy VTE Monitoring - Patient Demographics Admission date: 05/31/19 Report Date: 06/01/19 Time: 07:23 Allergies/Adverse Reactions: Patient Allergies codeine [CODEINE] Allergy (Unknown, Verified 05/28/19 10:56) I-RASH Height: 1.73 m Weight: 111.187 kg Patient Problems: Current Active Problems Angina at rest (Acute) History of coronary artery stent placement (Acute) Chest pain (Acute) - VTE Risk Labs: VTE Related Lab Results Hgb 13.4 g/dL (12.2-16.2) 05/31/19 09:54 Hct 44.3 % (37.0-47.0) 05/31/19 09:54 Plt Count 327 K/mm3 (142-424) 05/31/19 09:54 BUN 15 mg/dL (7-18) 05/31/19 09:54 Creatinine 1.24 mg/dL (0.55-1.02) H 05/31/19 09:54 Estimated Creat Clear 80 mL/min (50-200) 05/31/19 09:54 Was VTE Risk Assessment Performed: No VTE Score: 2 VTE Risk Level: Very Low Risk Clinical Trial Participant: No - Prophylaxis VTE Prophylaxis Ordered?: Yes Types of VTE Prophylaxis: TEDS Knee High Location of Applied Device: Bilateral Lower Extremeties
--- NOTE | 2019-06-01 07:58 | Progress Note ---
Subjective Date: 06/01/19 Time: 07:56 Principal diagnosis: chest pain Interval history: 58-year-old white female in bedside chair in no acute distress. She relates she had a rough night which included chest pain for which some lingual nitroglycerin was given x2 with relief. Patient noted to have abnormal stress test for which left heart catheterization is recommended. Risks, benefits and procedure explained to the patient she agrees to proceed. Exam Vital signs and Labs for Last 24 Hours: Temp Pulse Resp BP Pulse Ox 98.4 F 72 16 95/47 L 97 06/01/19 04:00 06/01/19 04:00 06/01/19 04:00 06/01/19 04:00 06/01/19 04:00 Laboratory Results - last 24 hr 05/31/19 09:54: Troponin I < 0.02 05/31/19 09:54: WBC 7.9, RBC 5.26, Hgb 13.4, Hct 44.3, MCV 84.1, MCH 25.5 L, MCHC 30.3 L, RDW 16.0, Plt Count 327, MPV 6.9 L, Neut % (Auto) 68.0, Lymph % (Auto) 22.5, [place] % (Auto) 5.5, Eos % (Auto) 2.8, Baso % (Auto) 1.3, Neut # (Auto) 5.4, Lymph # (Auto) 1.8, [place] # (Auto) 0.4, Eos # (Auto) 0.2, Baso # (Auto) 0.1 05/31/19 09:54: Sodium 140, Potassium 3.9, Chloride 103, Carbon Dioxide 29, Anion Gap 11.9, BUN 15, Creatinine 1.24 H, Estimated Creat Clear 80, Estimated GFR 44 L, Est GFR ( Amer) 54 L, Glucose 132 H, Calcium 8.9, Total Bilirubin 0.2, AST 10 L D, ALT 22, Alkaline Phosphatase 114, Total Protein 7.6, Albumin 3.5, Globulin 4.1 H, Albumin/Globulin Ratio 0.9 L 05/31/19 09:54: Lipase 129 05/31/19 13:00: Troponin I < 0.02 05/31/19 16:00: Troponin I < 0.02 I & O for Last 24 hours: Intake & Output 09/05/30/19 05/31/19 06/01/19 11:59 11:59 11:59 11:59 Intake Total 720 / 720 Balance 720 / 720 Weight 230 lb 245 lb 2 oz - *Routine HEENT Exam Head: Present: normocephalic Eye: Present: EOMI, PERRL ENT: Present: mucous membranes moist - *Routine Respiratory Exam Present: CTA bilaterally. Absent: accessory muscle use, rales, rhonchi, wheezes - *Routine Cardiovascular Exam Present: RRR. Absent: murmur, gallop, rubs - *Routine Neurological Exam Present: alert, oriented X3, moving all extremities Progress Note: A&P (1) Angina at rest Status: Acute Current Visit: Yes (2) History of coronary artery stent placement Status: Acute Current Visit: Yes (3) Dyspepsia Status: Acute Current Visit: No (4) GILSON (obstructive sleep apnea) Status: Acute Current Visit: No (5) Obesity (BMI 30-39.9) Status: Acute Current Visit: No (6) CAD (coronary artery disease) Status: Chronic Current Visit: No (7) HLD (hyperlipidemia) Status: Chronic Current Visit: No (8) HTN (hypertension) Status: Chronic Current Visit: No (9) Sarcoidosis Status: Chronic Current Visit: No Assessment and Plan for All Diagnoses:: Left heart catheterization today with further recommendations to follow pending results. GI did see the patient with no immediate plans for procedures. She will follow- up with them after hospitalization.
--- NOTE | 2019-06-01 08:57 | Progress Note ---
Internal Medicine - PN: Subj *Date: 06/01/19 *Time: 08:54 Interval history: Patient states that she had a rough night last night. She had chest pain twice which nitroglycerin x1 did relieved. She did have a little nausea this a.m. with the chest pain. She denies shortness of breath. She ate without problems yesterday evening. She has ambulated in the room without problems. She is n.p.o. this morning for cardiac cath. Exam Vital signs and Labs for Last 24 Hours: Temp Pulse Resp BP Pulse Ox 98.4 F 72 16 95/47 L 97 06/01/19 04:00 06/01/19 04:00 06/01/19 04:00 06/01/19 04:00 06/01/19 04:00 Laboratory Results - last 24 hr 05/31/19 09:54: Troponin I < 0.02 05/31/19 09:54: WBC 7.9, RBC 5.26, Hgb 13.4, Hct 44.3, MCV 84.1, MCH 25.5 L, MCHC 30.3 L, RDW 16.0, Plt Count 327, MPV 6.9 L, Neut % (Auto) 68.0, Lymph % (Auto) 22.5, Gem % (Auto) 5.5, Eos % (Auto) 2.8, Baso % (Auto) 1.3, Neut # (Auto) 5.4, Lymph # (Auto) 1.8, Gem # (Auto) 0.4, Eos # (Auto) 0.2, Baso # (Auto) 0.1 05/31/19 09:54: Sodium 140, Potassium 3.9, Chloride 103, Carbon Dioxide 29, Anion Gap 11.9, BUN 15, Creatinine 1.24 H, Estimated Creat Clear 80, Estimated GFR 44 L, Est GFR ( Amer) 54 L, Glucose 132 H, Calcium 8.9, Total Bilirubin 0.2, AST 10 L D, ALT 22, Alkaline Phosphatase 114, Total Protein 7.6, Albumin 3.5, Globulin 4.1 H, Albumin/Globulin Ratio 0.9 L 05/31/19 09:54: Lipase 129 05/31/19 13:00: Troponin I < 0.02 05/31/19 16:00: Troponin I < 0.02 I & O for Last 24 hours: Intake & Output 05/29/19 05/30/19 05/31/19 06/01/19 11:59 11:59 11:59 11:59 Intake Total 720 / 720 Balance 720 / 720 Weight 230 lb 245 lb 2 oz Radiology Reports for the Last 24 Hours: 05/31/2019 stress test results Conclusion: 1. The EKG portion of the Lexiscan Myoview is nondiagnostic. 2. Scintigraphic evidence of mixed ischemia and scar involving the inferior posterior lateral wall, computer derived ejection fraction 63% with segmental wall motion abnormality described above, right ventricle is normal size and contractility. 3. Abnormal Lexiscan Myoview study. 05/31/2019 echocardiogram Conclusion 1. Mildly enlarged left atrium, normal left ventricular size, mild concentric left ventricular hypertrophy, visually estimated ejection fraction 45% with segmental wall motion abnormality described above, grade 1 diastolic dysfunction seen without tissue Doppler evidence of raise left atrial pressure. Endocardial surfaces are poorly visualized. 2. Thickened and calcified aortic valve without Doppler evidence of aortic stenosis aortic insufficiency. 3. Mild mitral and tricuspid regurgitation 4. No significant pericardial effusion noted. - Constitutional no acute distress Comments: Currently she is comfortable - Routine Chest/Breast/Axilla Exam Chest wall: Present: tenderness (Anterior left chest) - *Routine Respiratory Exam Present: CTA bilaterally (Anteriorly and posteriorly) - *Routine Cardiovascular Exam Present: RRR - *Routine Abdominal Exam Present: soft, normoactive bowel sounds. Absent: tenderness, distended - *Routine Extremities Exam Present: JELENA stockings. Absent: edema, calf tenderness (Right) - *Routine Neurological Exam Present: alert, oriented X3 Assessment and Plan (1) Angina at rest Current visit: Yes Status: Acute Category: Medical Code(s): I20.8 - Other forms of angina pectoris (2) History of coronary artery stent placement Current visit: Yes Status: Acute Category: Surgical Code(s): Z95.5 - (3) Dyspepsia Current visit: No Status: Acute Category: Medical Code(s): R10.13 - Epigastric pain (4) GILSON (obstructive sleep apnea) Current visit: No Status: Acute Category: Medical Code(s): G47.33 - Obstructive sleep apnea (adult) (pediatric) (5) Obesity (BMI 30-39.9) Current visit: No Status: Acute Category: Medical Code(s): E66.9 - Obesity, unspecified (6) CAD (coronary artery disease) Current visit: No Status: Chronic Qualifiers: Coronary Disease-Associated Artery/Lesion type: [place] artery [place] vs. transplanted heart: [place] heart Associated angina: without angina Qualified Code(s): I25.10 - Atherosclerotic heart disease of [place] coronary artery without angina pectoris Category: Medical Code(s): I25.10 - Atherosclerotic heart disease of [place] coronary artery without angina pectoris (7) HLD (hyperlipidemia) Current visit: No Status: Chronic Qualifiers: Hyperlipidemia type: unspecified Qualified Code(s): E78.5 - Hyperlipidemia, unspecified Category: Medical Code(s): E78.5 - Hyperlipidemia, unspecified (8) HTN (hypertension) Current visit: No Status: Chronic Qualifiers: Hypertension type: essential hypertension Qualified Code(s): I10 - Essential (primary) hypertension Category: Medical Code(s): I10 - Essential (primary) hypertension (9) Sarcoidosis Current visit: No Status: Chronic Category: Medical Code(s): D86.9 - Sarcoidosis, unspecified - Assessment and plan all Dx Assessment and Plan for all problems:: Plan is for his cardiac cath this a.m. Further care dependent on results of this test. Cardiology is following
--- NOTE | 2019-06-01 13:02 | Discharge Summary ---
General - General Admission date:: 05/31/19 Discharge date: 06/01/19 HPI HPI: Ms. Walters is a 58-year-old female with a history of coronary artery disease, hypertension, hyperlipidemia, frequent urinary tract infections, obstructive sleep apnea, restless legs, and diabetes with neuropathy who presented to the emergency room this a.m. with substernal and epigastric burning chest pain that was nonradiating. She denies shortness of breath, palpitations, nausea, and diaphoresis. She states she has been having intermittent chest pain over the past week and did see her construction management assistant in the office last week who made some changes in her medications. He changed her to Pepcid, decreased her Imdur, and discontinued her statin due to possible causes of her heartburn. Patient describes her chest discomfort as resolving with nitroglycerin. She states the pain awakened her about 3 AM this morning and again was relieved by nitroglycerin She then presented to the emergency room for further evaluation and treatment. Last cardiac catheterization was in 2015 at which time she had stents placed. She felt that her symptoms were similar to her prior anginal pain and occurred with activity. She has not seen any improvement in her symptoms with her medi cation changes. She also has a history of esophageal stricture with dilatation in the distant past. She has not had a recent GI follow-up. At the time of this exam patient has had her stress test and echocardiogram with results pending. Currently she has no epigastric or chest pain. She has been seen by cardiology and gastroenterology. Troponin I's have been normal thus far. Hospital Course Hospital Course: Patient was admitted to our hospital for her recurrent chest pain. She underwent nuclear stress test and Echo, which showed abnormal scan and diastolic heart failure. So she subsequently underwent left heart cath, which showed multiple blockages on PAD and RCA. Please see cath report for full details. She had total of three SENA today. She is already on plavix and ASA. Advised to continue her current cardiac meds and f/u with Dr. Avelar in 1 week. She also underwent GI evaluation during this admission, who recommended outpatient f/u. She will be set up to see them outpatient to otimize her medical management for her dyspepsia. She is to be discharged today upon being medically stable after 2 pm s/p stenting. Only new cardiac meds she needs is lisinopril, script was given for this upon discharge. All f/u appts set up for her prior to discharge including PCP, Dr. Avelar and Nikkie Ramsey. Objective Vital signs: Temp Pulse Resp BP Pulse Ox 97.6 F 74 19 122/85 97 06/01/19 10:40 06/01/19 11:40 06/01/19 11:40 06/01/19 11:40 06/01/19 11:40 no acute distress, obese - *Routine HEENT Exam Head: Present: normocephalic Eye: Present: EOMI, PERRL ENT: Present: mucous membranes moist - *Routine Neck Exam Present: supple, full ROM - Routine Chest/Breast/Axilla Exam Chest wall: Absent: tenderness - *Routine Respiratory Exam Present: CTA bilaterally. Absent: accessory muscle use - *Routine Cardiovascular Exam Present: RRR, Normal S1, Normal S2 - *Routine Abdominal Exam Present: soft, normoactive bowel sounds. Absent: tenderness - *Routine Extremities Exam Present: full ROM. Absent: cyanosis, clubbing, edema - *Routine Skin Exam Present: intact. Absent: cyanosis, erythema - *Routine Neurological Exam Present: alert, oriented X3 - Routine Psychiatric Exam Present: normal affect Results Labs on day of discharge: Labs from last 24 hours 06/01/19 05/31/19 05/31/19 09:02 16:00 13:00 Activated Clotting Time > 400 H* Troponin I < 0.02 < 0.02 DS: Diagnosis - Discharge Diagnosis (1) Angina at rest Status: Acute (2) History of coronary artery stent placement Status: Acute (3) Dyspepsia Status: Acute (4) GILSON (obstructive sleep apnea) Status: Acute (5) Obesity (BMI 30-39.9) Status: Acute (6) CAD (coronary artery disease) Status: Chronic (7) HLD (hyperlipidemia) Status: Chronic (8) HTN (hypertension) Status: Chronic (9) Sarcoidosis Status: Chronic Discharge Plan - Patient Discharge Instructions ACTIVITY: Ambulate as tolerated, No heavy lifting DIET: cardiac Additional Instructions: d/c after 2 pm as she has stent placements early this am Patient Instructions: Angina, Cardiac Catheterization, DI for Angina, DI for Cardiac Catheterization - Follow up Plan Follow up with: Jessi Ramsey APRN [Nurse Practitioner] - 2 weeks Manish Avelar MD [Staff Physician] - 1 week Unknown provider or service follow up:: 06/01/19 12:52 her PCP in 1 week Disposition: Home, Self-Senior Living Medications: Home Medications Medication Instructions Recorded Confirmed Type albuterol sulfate HFA 90 1 puff IH Q4-6H PRN 09/25/17 06/01/19 History mcg/actuation aerosol inhaler aspirin 81 mg tablet,delayed 81 mg PO DAILY 09/25/17 06/01/19 History release fluticasone propionate 50 1 spray NS DAILY 09/25/17 06/01/19 History mcg/actuation nasal spray,suspension ferrous sulfate 325 mg (65 mg 325 mg PO TID tab 10/09/17 05/31/19 History iron) tablet nitroglycerin 0.4 mg sublingual 0.4 mg SUBLINGUAL Q5M PRN #30 tab 10/08/18 05/31/19 Rx tablet furosemide 40 mg tablet 40 mg PO DAILY #30 tab 11/12/18 05/31/19 Rx pantoprazole 40 mg tablet,delayed 40 mg PO DAILY #90 tab 01/04/19 05/31/19 Rx release carvedilol 25 mg tablet 25 mg PO BID #60 tab 03/08/19 05/31/19 Rx dulaglutide 0.75 mg/0.5 mL 0.75 mg SQ WEEKLY 05/28/19 06/01/19 History subcutaneous pen injector RX: Atorvastatin Calcium [Lipitor 80 mg PO DAILY 05/31/19 05/31/19 History 80mg Tablet] RX: Clopidogrel Bisulfate [Plavix 75 mg PO DAILY 05/31/19 05/31/19 History 75mg Tab] RX: Famotidine [Acid Wallpaper Inspector] 20 mg PO DAILY 05/31/19 05/31/19 History RX: Ropinirole HCl 1 mg PO 0900,1300 05/31/19 06/01/19 History Levothyroxine Sodium 50 mcg PO DAILY 06/01/19 06/01/19 History [Levothyroxine 50mcg (0.05mg) Tab] RX: Isosorbide Mononitrate 120 mg PO DAILY 06/01/19 06/01/19 History [Isosorbide Mononitrate ER] RX: Lisinopril [Zestril 5mg 5 mg PO DAILY 30 Days #30 tab 06/01/19 Rx Tablet] RX: Nortriptyline HCl 75 mg PO HS 06/01/19 06/01/19 History RX: Pregabalin [Lyrica 75mg Cap] 75 mg PO BID 06/01/19 06/01/19 History Ropinirole HCl 2 mg PO HS 06/01/19 06/01/19 History Spironolactone [Aldactone 50mg Tab] 50 mg PO DAILY 06/01/19 06/01/19 History Prescriptions/Medication Reconciliation: New RX: Spironolactone [Aldactone 25mg Tab] 50 mg PO DAILY tablet RX: Spironolactone [Aldactone 25mg Tab] 50 mg PO DAILY tablet RX: Isosorbide Mononitrate [Imdur 60mg ER tablet] 120 mg PO DAILY #0 tab.er.24h RX: Nortriptyline HCl [Pamelor 25mg capsule] 25 mg PO HS capsule RX: Lisinopril [Zestril 5mg Tablet] 5 mg PO DAILY 30 Days #30 tab Continued aspirin 81 mg tablet,delayed release 81 mg PO DAILY fluticasone propionate 50 mcg/actuation nasal spray,suspension 1 spray NS DAILY albuterol sulfate HFA 90 mcg/actuation aerosol inhaler 1 puff IH Q4-6H PRN PRN Reason: Shortness Of Breath ferrous sulfate 325 mg (65 mg iron) tablet 325 mg PO TID tab nitroglycerin 0.4 mg sublingual tablet 0.4 mg SUBLINGUAL Q5M PRN #30 tab PRN Reason: Chest Pain furosemide 40 mg tablet 40 mg PO DAILY #30 tab carvedilol 25 mg tablet 25 mg PO BID #60 tab dulaglutide 0.75 mg/0.5 mL subcutaneous pen injector 0.75 mg SQ WEEKLY RX: Clopidogrel Bisulfate [Plavix 75mg Tab] 75 mg PO DAILY RX: Isosorbide Mononitrate [Isosorbide Mononitrate ER] 120 mg PO DAILY RX: Nortriptyline HCl 75 mg PO HS Spironolactone [Aldactone 50mg Tab] 50 mg PO DAILY Levothyroxine Sodium [Levothyroxine 50mcg (0.05mg) Tab] 50 mcg PO DAILY RX: Pregabalin [Lyrica 75mg Cap] 75 mg PO BID RX: Famotidine [Acid Wallpaper Inspector] 20 mg PO DAILY RX: Atorvastatin Calcium [Lipitor 80mg Tablet] 80 mg PO DAILY RX: Ropinirole HCl 1 mg PO 0900,1300 Ropinirole HCl 2 mg PO HS Discontinued pantoprazole 40 mg tablet,delayed release 40 mg PO DAILY #90 tab - Problem Reconciliation Problems Reviewed?: Yes
--- NOTE | 2019-06-01 20:06 | Electrocardiograph Report ---
APPROVED REPORT Exam: Resting ECG HR:70 bpm ECG Measurements Heart Rate 70 AXES MD 120 P 9 QRSd 98 QRS -23 QT 366 T-85 QTc 395 <Conclusion> Normal sinus rhythm Voltage criteria for left ventricular hypertrophy Possible Lateral infarct, age undetermined ST & T wave abnormality, consider inferior ischemia Abnormal ECG Electronically signed by : Vijay Flores, 06/01/2019 20:06:02
--- NOTE | 2019-06-02 06:13 | Cardiology Report ---
APPROVED REPORT Exam: Pharmacologic Technologist: Dolly Sen Ht: 5 ft 7 in Wt: 230 lbs BSA: 2.15 m2 HR: 70 bpm BP: 100/60 mmHg Indications: Chest pain Medical History Medications: Asa,,,,, Pantoprazole,,,,, Carvedilol,,,,, Iron,,,,, Lasix,,,,, Ropinirole,,,,, Albuterol,,,,, Nitro,,,,, Nortriptyline,,,,, Isosorbide/MONITRATE,,,,, SpirOnLACTONE,,,,, Stress Test Details Test: LEXISCAN HR Resting HR: 71 bpmMax Heart Rate (APMHR): 161 bpm Max HR Achieved: 89 bpmTarget HR (85% APMHR): 136 bpm % of APMHR: 55 Recovery HR: 76 bpm BP Resting BP: 100.0/60.0 mmHg Max BP: 105.0/55.0 mmHg Recovery BP: 105.0/55.0 mmHg ECG Clinical Exercise duration: 01:53 min Highest Stage Achieved: Exercise capacity: 1.0 METs Stress ECG Conclusion Resting ECG: Sinus Rhythm Lexiscan portion completed. Symptoms: Shortness of breath at peak infusion, resolved in recovery. No chest pain. Arrhythmias/Ectopy: No ectopy noted. ST-T Changes: Less than 1.5mm ST depression. Conclusion: Images to follow. Electronically signed by : Pasha Huang, 06/02/2019 06:12:42
== END 2019-06-01 15:00 | disposition home or self-care (01) ==
LOC: ER 09:49 → 2ND 09:49
PROVIDERS: ADMIT Emergency Medicine; ATTEND Emergency Medicine
CPT/HCPCS: 36415; 71010; 71045; 78452; 80053; 83690; 84484; 85025; 85347; 92928; 93005; 93017; 93306; 93458; 99152; 99153; 99283; 99284; A9502; C1725; C1760; C1769; C1876; C9600; G0378; J1644; J2405; J2785; Q9967

== ENCOUNTER 2021-04-10 19:56 | Observation (INO) | payer MEDICARE, SELFPAY ==
--- NOTE | 2021-04-10 19:49 | ECG_ITS ---
APPROVED REPORT Exam: Resting ECG HR:73 bpm ECG Measurements Heart Rate 73 AXES MO 140 P 39 QRSd 88 QRS -5 QT 380 T 16 QTc 418 Conclusion Normal sinus rhythm Minimal voltage criteria for LVH, may be normal variant Cannot rule out Anterior infarct, age undetermined Abnormal ECG Electronically signed by : Vijay Flores MD 04/11/2021 08:36:47
[2021-04-10 19:56] VITALS: BP 135/62; PULSE 77; RESP 18; TEMP 36.7; O2SAT 98; BMI 38.2
--- NOTE | 2021-04-10 20:07 | PC.NURSE ---
BG- 85 on arrival
--- NOTE | 2021-04-10 20:22 | XR_ITS ---
PROCEDURE INFORMATION: Exam: XR Chest Exam date and time: 04/10/2021 8:22 PM Age: 60 years old Clinical indication: Chest pressure; Prior surgery; Surgery type: Heart stents; Patient HX: Chest pain since 2 am , pain going through to back; Additional info: Cp, cough TECHNIQUE: Imaging protocol: XR of the chest. Views: 2 views. COMPARISON: CR XR CHEST PORTABLE 05/31/2019 10:12 AM FINDINGS: Lungs: Faint left basilar opacity noted. Pleural spaces: Unremarkable. No pleural effusion. No pneumothorax. Heart/Mediastinum: Unremarkable. No cardiomegaly. Bones/joints: Unremarkable. IMPRESSION: Faint left basilar opacity could represent an infiltrate
--- NOTE | 2021-04-10 20:25 | [facility].EDCP ---
ED Disposition Clinical Impression: Unstable angina pectoris, Obesity (BMI 30-39.9) CAD (coronary artery disease) Qualifiers: Coronary Disease-Associated Artery/Lesion type: [place] artery [place] vs. transplanted heart: [place] heart Associated angina: with unstable angina Qualified Code(s): I25.110 - Atherosclerotic heart disease of [place] coronary artery with unstable angina pectoris Diabetes mellitus Qualifiers: Diabetes mellitus type: type 2 Diabetes mellitus intermediate project manager insulin use: unspecified retirement insulin use status Diabetes mellitus complication status: with other specified complication Qualified Code(s): E11.69 - Type 2 diabetes mellitus with other specified complication Disposition: Admitted as Observation Condition on Discharge: Good - Critical Care Critical Care Time: No Attestation: On , the high probability of a clinically significant, sudden or life threatening deterioration of the following system(s) required my full and direct attention, intervention and personal management. The time I documented below is in addition to time spent performing reported procedures but includes the following listed in this critical care notation. Medical Decision Making - Medical Records Medical records reviewed: Yes: I reviewed the patient's medical records. - Chandu Inquiry Pt receiving controlled substance: No Vital Signs: 04/10/21 19:56 04/10/21 20:33 04/10/21 21:30 Temperature 98.0 F Temperature Source Oral Pulse Rate 81 72 Pulse Rate [Left Radial] 77 Respiratory Rate 18 17 15 Blood Pressure 145/68 H 115/57 L Blood Pressure [Right Arm] 135/62 Blood Pressure Mean [Right Arm] 86 Blood Pressure Source [Right Arm] Automatic Cuff Blood Pressure Position [Right Arm] Sitting 02 Sat by Pulse Oximetry 98 98 99 Oxygen Delivery Method Room Air Room Air 04/10/21 22:00 04/10/21 22:45 Temperature Temperature Source Pulse Rate 79 71 Pulse Rate [Left Radial] Respiratory Rate 19 Blood Pressure 100/53 L 145/68 H Blood Pressure [Right Arm] Blood Pressure Mean [Right Arm] Blood Pressure Source [Right Arm] Blood Pressure Position [Right Arm] 02 Sat by Pulse Oximetry 99 97 Oxygen Delivery Method Room Air Room Air - Lab Data Lab results reviewed: Yes: I reviewed the patient's lab results. Lab Results 04/10/21 20:15: WBC 11.0 H, RBC 5.14, Hgb 13.9, Hct 42.5, MCV 82.7, MCH 27.0, MCHC 32.6, RDW 16.0, Plt Count 307, MPV 7.5, Neut % (Auto) 70.5, Lymph % (Auto) 21.3, [place] % (Auto) 5.4, Eos % (Auto) 1.6, Baso % (Auto) 1.2, Neut # (Auto) 7.7, Lymph # (Auto) 2.3, [place] # (Auto) 0.6, Eos # (Auto) 0.2, Baso # (Auto) 0.1, ESR 28 04/10/21 20:15: Sodium 141, Potassium 4.3, Chloride 102, Carbon Dioxide 32 H, Anion Gap 11.3, BUN 24 H, Creatinine 1.10 H, Estimated Creat Clear 97, Estimated GFR 50 L, Est GFR ( Amer) 61, Glucose 96, Calcium 9.4, Total Bilirubin 0.4, Direct Bilirubin 0.4, Conjugated Bilirubin 0.0, Indirect Bilirubin 0.0, Unconjugated Bilirubin 0.0, AST 24, ALT 21, Alkaline Phosphatase 121, Troponin I < 0.01, C-Reactive Protein 15.8 H, Total Protein 7.8, Albumin 4.4, Amylase 83, Procalcitonin 0.054 04/10/21 20:15: Lipase 190 04/10/21 20:24: SARS-CoV-2 (PCR) Not detected, Influenza A Untype (PCR) Not detected, Influenza Type B (PCR) Not detected Result diagrams: 04/10/21 20:15 04/10/21 20:15 Orders (Tests/Meds): ED MEDICATIONS Generic Name Dose Route Start Last Admin Trade Name Freq PRN Reason Stop Dose Admin Sodium Chloride 1,000 mls @ 999 mls/hr 04/10/21 20:30 04/10/21 20:27 Sod Chlor 0.9% 1000ml Bag IV 04/10/21 21:30 999 mls/hr .Q1H1M LEILA Administration Nitroglycerin 0.4 mg 04/10/21 20:24 Nitroglycerin 0.4mg Sl Tablet SL 05/10/21 20:23 Q5MINP PRN Chest Pain Sodium Chloride 8 ml 04/10/21 20:28 Sodium Chloride 0.9% 10ml Vial IV 05/10/21 20:27 NEEDED PRN dilute pepcid Discontinued Medications Generic Name Dose Route Sta
[2021-04-10 20:33] VITALS: BP 145/68; PULSE 81; RESP 17; O2SAT 98
--- NOTE | 2021-04-10 20:33 | CT_ITS ---
PROCEDURE INFORMATION: Exam: CT Abdomen And Pelvis Without Contrast Exam date and time: 04/10/2021 8:33 PM Age: 60 years old Clinical indication: Abdominal pain; Patient HX: Epigastric pain x 1 day; Additional info: Abd pain TECHNIQUE: Imaging protocol: Computed tomography of the abdomen and pelvis without contrast. Radiation optimization: All CT scans at this facility use at least one of these dose optimization techniques: automated exposure control; mA and/or kV adjustment per patient size (includes targeted exams where dose is matched to clinical indication); or iterative reconstruction. COMPARISON: CR ABDACU ABD ACUTE(MUL VIEWS) 08/31/2016 12:02 PM FINDINGS: Liver: Normal. No mass. Gallbladder and bile ducts: Normal. No calcified stones. No ductal dilation. Pancreas: Normal. No ductal dilation. Spleen: Normal. No splenomegaly. Adrenal glands: Normal. No mass. Kidneys and ureters: Normal. No hydronephrosis. Stomach and bowel: Scattered colonic diverticula are seen. No large or small bowel dilatation. Appendix: No evidence of appendicitis. Intraperitoneal space: Unremarkable. No free air. No significant fluid collection. Vasculature: Coronary artery calcifications. Lymph nodes: Unremarkable. No enlarged lymph nodes. Urinary bladder: Unremarkable as visualized. Reproductive: Unremarkable as visualized. Bones/joints: Unremarkable. No acute fracture. Soft tissues: Unremarkable. IMPRESSION: No acute intra-abdominal pathology. No findings to explain the patient's symptoms.
[2021-04-10 20:35] LABS: Coronavirus 19, PCR Not Detected (NotDetected); Influenza A, PCR Not Detected (NotDetected); Influenza B, PCR Not Detected (NotDetected)
[2021-04-10 20:38] LABS: Basophils # 0.1 K/mm3 (0-0.2); Basophils % 1.2 % (0.1-2.0); Eosinophils # 0.2 K/mm3 (0.0-0.4); Eosinophils % 1.6 % (0.1-12.0); Hematocrit 42.5 % (37.0-47.0); Hemoglobin 13.9 g/dL (12.2-16.2); Lymphocytes # 2.3 K/mm3 (0.7-4.5); Lymphocytes % 21.3 % (10-50); Mean Corpuscular HGB Conc 32.6 g/dL (31.8-35.4); Mean Corpuscular Volume 82.7 fl (81-99); Mean Platelet Volume 7.5 fl (7.4-10.4); Monocytes # 0.6 K/mm3 (0.1-1.0); Monocytes % 5.4 % (1.7-9.3); Neutrophils # 7.7 K/mm3 (1.8-7.8); Neutrophils % 70.5 % (37.0-80.0); Platelet Count 307 K/mm3 (142-424); Red Blood Count 5.14 M/mm3 (4.20-5.40)
[2021-04-10 20:41] LABS: Chloride 102 mmol/L (98-107); Potassium 4.3 mmoL/L (3.5-5.1); Sodium 141 mmol/L (136-145)
[2021-04-10 20:43] LABS: Lipase 190 U/L (23-300)
[2021-04-10 20:44] LABS: Alanine Aminotransferase 21 U/L (12-78); Albumin Level 4.4 g/dl (3.5-5.0); Alkaline Phosphatase 121 U/L (38-126); Amylase 83 U/L (30-110); Anion Gap 11.3 mEq/L (5-15); Aspartate Amino Transferase 24 U/L (14-36); Bilirubin,Direct 0.4 mg/dl (0.0-0.4); Bilirubin,Total 0.4 mg/dl (0.2-1.3); Blood Urea Nitrogen 24 mg/dl (7-17); Calcium 9.4 mg/dl (8.4-10.2); Carbon Dioxide 32 mmol/L (22.0-30.0); Creatinine Clearance Estimated 97 mL/min (50-200); Estimated Glomerular Filt Rate 50 ml/min (>60); GFR (African American) 61 ML/MIN (>60); Glucose 96 mg/dl (74-100); Total Protein,Serum 7.8 g/dl (6.3-8.2)
[2021-04-10 20:55] LABS: C-Reactive Protein 15.8 mg/L (0-4)
[2021-04-10 21:01] LABS: Erythrocyte Sedimentation Rate 28 mm/hr (0-30); Troponin I < 0.01 ng/ml (0.00-0.034)
--- NOTE | 2021-04-10 21:25 | PC.NURSE ---
Pt reports no pain currently
[2021-04-10 21:30] VITALS: BP 115/57; PULSE 72; RESP 15; O2SAT 99
[2021-04-10 21:45] LABS: Procalcitonin 0.054 ng/mL (0.0-2.0)
[2021-04-10 22:00] VITALS: BP 100/53; PULSE 79; RESP 19; O2SAT 99
[2021-04-10 22:45] VITALS: BP 145/68; PULSE 71; O2SAT 97
[2021-04-10 23:01] LABS: Microscopic, Urine URINE MICROSCOPIC (MICROSCOPIC)
[2021-04-10 23:02] LABS: Appearance,Urine CLEAR (Clear); Bilirubin,Urine Negative (Negative); Blood, Urine Negative (Negative); Color,Urine STRAW (Yellow); Glucose,Urine (UA) Negative (Negative); Ketones,Urine Negative (Negative); Leukocyte Esterase,Urine Negative (Negative); Nitrate,Urine Negative (Negative); PH,Urine 6.5 (5.0-8.5); Protein,Urine Negative (Negative); Urobilinogen,Urine 0.2 EU/dl (0.2)
[2021-04-10 23:10] LABS: Squamous Epithelial Cell,Urine Occasional #/hpf (0-5); WBC,Urine Occasional #/hpf (0-3)
[2021-04-11] VITALS (33 sets, daily range): BP systolic 105–162; BP diastolic 49–91; PULSE 50–84; RESP 16–20; TEMP 36.4–37.1; O2SAT 94–99; BMI 38.9; BMI 39.1
--- NOTE | 2021-04-11 | IR_ITS ---
APPROVED REPORT Patient Location: Inpatient PROCEDURES Left heart catheterization Left ventriculogram Selective coronary angiogram INDICATION Unstable angina, Known coronary disease Informed consent was obtained prior to the procedure. COMPLICATIONS None Estimated Blood Loss: Less than 10 mls TECHNIQUE One percent lidocaine was used to anesthetize the right groin. The right femoral artery was accessed via the Seldinger technique. A 4-Irish sheath was placed in the right femoral artery. The JL-4 and JR-4 catheter was also used to perform left heart catheterization left ventriculogram and selective coronary angiogram. At the end of the procedure the patient was transferred to the post-op holding area in stable condition for arterial sheath removal. ANGIOGRAPHIC RESULTS The left main artery Has a stent in the ostial segment which extends into the proximal LAD. The stent is widely patent free of in-stent restenosis with excellent proximal distal transitioning The left anterior descending artery Has a stent originating off the left main artery and extends through the proximal segment into the mid segment is widely patent free of in-stent restenosis. The remaining LAD has mild atheromatous plaque. A large first diagonal artery bifurcates off the proximal LAD with a widely patent bifurcating stent which also was free of in-stent restenosis with excellent distal transitioning The circumflex artery Ostially occluded and scantly fills via left to left collaterals The right coronary artery Is a dominant vessel and has proximal 40% stenoses with mid vessel 40% stenoses followed by distal stent which is widely patent free of in-stent restenosis The CERON ventriculogram reveals Dilated ventricle ejection fraction 35 to 40% The left ventricular end-diastolic pressure 20 mmHg IMPRESSION Widely patent coronary arteries as described above with a chronically occluded circumflex artery which fills via left to left collaterals Reduced ejection fraction Elevated LVEDP PLAN 1. Medical management for coronary artery disease 2. A formal echocardiogram should be obtained to better quantitate ejection fraction to determine if patient is a candidate for an AICD 3. Lower LVEDP which is likely contributing to patient's angina 4. Aggressive risk factor modification with avoidance of tobacco products Electronically signed by : Manish Avelar MD 04/11/2021 13:41:00
[2021-04-11 00:02] LABS: Troponin I < 0.01 ng/ml (0.00-0.034)
--- NOTE | 2021-04-11 00:34 | PC.NURSE ---
Report called to Dona at this time
--- NOTE | 2021-04-11 00:55 | PC.NURSE ---
Pt arrived to the floor via w/c with staff at this time.
[2021-04-11 03:34] LABS: Troponin I < 0.01 ng/ml (0.00-0.034)
[2021-04-11 05:29] LABS: POC Glucose,Bedside 70 (70-110)
--- NOTE | 2021-04-11 07:26 | P.CONPHA_ITS ---
[facility] Pharmacy VTE Monitoring - Patient Demographics Admission date: 04/10/21 Report Date: 04/11/21 Time: 07:26 Allergies/Adverse Reactions: Patient Allergies codeine [CODEINE] Allergy (Unknown, Verified 03/16/21 10:56) I-RASH Height: 1.73 m Weight: 116.687 kg Patient Problems: Current Active Problems Unstable angina pectoris (Acute) Diabetes mellitus (Acute) Obesity (BMI 30-39.9) (Acute) CAD (coronary artery disease) (Chronic) - VTE Risk Labs: VTE Related Lab Results Hgb 13.9 g/dL (12.2-16.2) 04/10/21 20:15 Hct 42.5 % (37.0-47.0) 04/10/21 20:15 Plt Count 307 K/mm3 (142-424) 04/10/21 20:15 BUN 24 mg/dl (7-17) H 04/10/21 20:15 Creatinine 1.10 mg/dl (0.52-1.04) H 04/10/21 20:15 Estimated Creat Clear 97 mL/min (50-200) 04/10/21 20:15 Was VTE Risk Assessment Performed: Yes VTE Score: 2 VTE Risk Level: Low Risk Clinical Trial Participant: No - Prophylaxis VTE Prophylaxis Ordered?: Yes Types of VTE Prophylaxis: TEDS Knee High
--- NOTE | 2021-04-11 07:41 | HMH.PHAINT ---
HOME MEDICATION LIST CLARIFIED USING LIST FROM [facility]
--- NOTE | 2021-04-11 08:00 | CA_ITS ---
APPROVED REPORT EXAM: Comprehensive 2D, Doppler, and color-flow Echocardiogram Electrical Power Engineer: Echo Arndt RDCS Ht: 5 ft 8 in Wt: 252lbs BSA: 2.25 BP: 145/68 mmHg Indications: CP,CAD,CHF 2D Dimensions LVOT 1.64 cm (M/F) 1.5-2.5 M-Mode Dimensions RVDd 3.14 cm (0.9-2.6) LA Diam 3.06 cm (1.9-4.0) LVDd 5.16 cm (3.5-5.7) Ao Diam 2.64 cm (2.0-3.7) LVDs 3.85 cm (3.5-5.7) IVSd 1.03 cm (0.6-1.1) PWd 1.13 cm (0.6-1.1) EF (Teich) 49.80% FS 25.40% EDV (Teich) 127.20 mL TAPSE 2.07 (<1.7) ESV (Teich) 63.90 mL LV Diastology E Decel Time 213.00 (160-240 msec) E/A Ratio 0.8 MED E' 6.80 (< 7 cm/sec) E'/MED E' Ratio 8.25 (>14) LAT E' 6.80 (<10 cm/sec) E/LAT E' Ratio 8.25 (>14) Mitral Valve MV E Max Bridger. 56.00 (40-130 cm/s) MV A Velocity 73.00 (40-130 cm/s) E/A Ratio 0.77 MV Decel. Time 213.00 (160-240 ms) MV PHT 62.00 ms Tricuspid Valve TR P. Velocity 185.00 cm/s RAP Estimate 10.00 mmHg RVSP 23.70 mmHg Left Ventricle Left atrium is mildly enlarged, left ventricle is normal size, mild concentric left ventricular hypertrophy, visually estimated ejection fraction 50% with no regional wall motion abnormality. Grade 1 diastolic dysfunction seen without tissue Doppler evidence of raise left atrial pressure. Right Ventricle Right atrium and right ventricle are mildly enlarged with normal contractility. Aortic Valve Aortic valve is minimally thickened and fibrosed, there is no aortic stenosis or aortic insufficiency. Mitral Valve Mitral valve grossly normal, there is trace mitral regurgitation. Tricuspid Valve Tricuspid valve grossly normal, there is trace tricuspid regurgitation, tricuspid regurgitation jet velocity is inadequate for calculation of the right ventricular systolic pressure. Pulmonic Valve Pulmonic valve is poorly visualized. Great Vessels Aortic root is normal size. Inferior vena cava is normal size with normal inspiratory collapse. Pericardium No significant pericardial effusion noted. Conclusion 1. Mild biatrial enlargement, normal left ventricular size, visually estimated ejection fraction 50% with no obvious regional wall motion abnormality, grade 1 diastolic dysfunction seen without tissue Doppler evidence of raise left atrial pressure. 2. Mildly enlarged right ventricle with normal contractility. 3. Trace mitral and tricuspid regurgitation. 4. No significant pericardial effusion noted, inferior vena cava is normal size with normal inspiratory collapse. Electronically signed by : Pasha Huang MD 04/12/2021 10:19:52
--- NOTE | 2021-04-11 08:18 | US_ITS ---
PROCEDURE: US GALLBLADDER CLINICAL INDICATION: abdominal pain COMPARISON: CT CT ABDOMEN PELVIS WO CON from 04/10/2021 FINDINGS: Pancreas: Unremarkable Liver: No focal liver lesion apparent. Common bile duct is normal at 3 mm. Portal vein within normal limits at 11 mm.. Right kidney: Unremarkable appearing. No hydronephrosis. Gallbladder: Gallbladder slightly distended at 9 x 3 cm. No gallstones, pericholecystic fluid, gallbladder wall thickening, or biliary ductal dilatation. IMPRESSION: Slightly distended gallbladder otherwise unremarkable right upper quadrant ultrasound Dictated by: Daniel Jimenez MD 04/11/2021 10:22 Daniel Jimenez MD in [place] 04/11/2021 10:22
--- NOTE | 2021-04-11 08:22 | HMH.HP ---
*Admission Date: 04/10/21 <Arcelia Alfaro - 04/11/21 08:32> *Chief complaint: Chest and abdominal pain <Arcelia Alfaro - 04/11/21 08:32> *History of present illness: Ms. Walters is a 60-year-old female with history of coronary artery disease with stents in 2019, hypothyroidism, arthritis, incontinence, restless leg syndrome, hypertension, hypertension, obstructive sleep apnea, cardiomyopathy and sarcoidosis who presented to [facility] after experiencing intermittent chest and abdominal pain for the last 3-4 days. She describes the discomfort as starting in the epigastric region and radiating into the back. It also has made her sore in her upper chest and throughout her abdomen. She has had some nausea but no vomiting. She denies being short of breath and has had no heart palpitations. She said she just felt awful yesterday and thus presented to the ER for evaluation. This a.m. she is somewhat better. She is n.p.o. for cardiac evaluation. Evaluation in the emergency room white blood cell count was found to be elevated. She received a liter of IV fluids, nitroglycerin, aspirin, Pepcid IV, Reglan IV.Chest x-ray revealed faint left basilar opacity with possible infiltrate. CT of the abdomen Revealed no acute intra-abdominal pathology. She was admitted for further evaluation and treatment with cardiology consult. 04/10/21 20:15: WBC 11.0 H, RBC 5.14, Hgb 13.9, Hct 42.5, MCV 82.7, MCH 27.0, MCHC 32.6, RDW 16.0, Plt Count 307, MPV 7.5, Neut % (Auto) 70.5, Lymph % (Auto) 21.3, [place] % (Auto) 5.4, Eos % (Auto) 1.6, Baso % (Auto) 1.2, Neut # (Auto) 7.7, Lymph # (Auto) 2.3, [place] # (Auto) 0.6, Eos # (Auto) 0.2, Baso # (Auto) 0.1, ESR 28 04/10/21 20:15: Sodium 141, Potassium 4.3, Chloride 102, Carbon Dioxide 32 H, Anion Gap 11.3, BUN 24 H, Creatinine 1.10 H, Estimated Creat Clear 97, Estimated GFR 50 L, Est GFR ( Amer) 61, Glucose 96, Calcium 9.4, Total Bilirubin 0.4, Direct Bilirubin 0.4, Conjugated Bilirubin 0.0, Indirect Bilirubin 0.0, Unconjugated Bilirubin 0.0, AST 24, ALT 21, Alkaline Phosphatase 121, Troponin I < 0.01, C-Reactive Protein 15.8 H, Total Protein 7.8, Albumin 4.4, Amylase 83, Procalcitonin 0.054 04/10/21 20:15: Lipase 190 04/10/21 20:24: SARS-CoV-2 (PCR) Not detected, Influenza A Untype (PCR) Not detected, Influenza Type B (PCR) Not detected Troponins normal x3. She is followed by cardiology, Dr. Huang, with last visit being in January of this year. She states she had a good checkup. <Arcelia Alfaro 04/11/21 08:48> [facility] History Medical History: Reports:: Anxiety, Atherosclerotic Heart Disease, Congestive Heart Failure, Coronary Artery Disease, Dementia, Depression, Diabetes Mellitus Type 2, Gastroesophageal Reflux Disease(GERD), Hyperlipidemia, Hypertension, Lung Disease (Sarcoidosis), Urinary Tract Infection Denies:: Diabetes Mellitus Type 1, Kidney Stones, Palpitations <AlfaroArcelia 04/11/21 08:32> *Have you ever received a pneumonia vaccine?: No <AlfaroArcelia 04/11/21 08:32> *Have you received a flu vaccine this season?: Yes <AlfaroArcelia 04/11/21 08:32> Other Medical History: Reports: Arthritis, Hypothyroidism. Denies: Sickle Cell Disease <DominicArcelia 04/11/21 08:32> Other Surgeries: Yes: Angioplasty, Appendectomy, Cardiac Catheterization, Colonoscopy, Coronary Stent, Dilation and Curettage, Other <DominicArcelia 04/11/21 08:32> - *Social History Last grade of school completed: High school graduate <DominicArcelia 04/11/21 08:32> Smoking Status: Never smoker <DominicArcelia 04/11/21 08:32> Alcohol Intake: never <Arcelia Alfaro 04/11/21 08:32> Alcohol Intake Frequency:: other <Arcelia Alfaro 04/11/21 08:32> Substance Use Type: denies use <Arcelia Alfaro - 04/11/21 08:32> *Occupational Status:: disabled <Arcelia Alfaro - 04/11/21 08:32> Housing: house <Arcelia Alfaro - 04/11/21 08:32> Household Members: spouse <Arcelia Alfaro - 04/11/21 08:32> *Travel in the last 8 weeks: None <Guzman
[2021-04-11 09:19] LABS: Basophils # 0.1 K/mm3 (0-0.2); Basophils % 1.2 % (0.1-2.0); Eosinophils # 0.2 K/mm3 (0.0-0.4); Eosinophils % 2.2 % (0.1-12.0); Hemoglobin 13.9 g/dL (12.2-16.2); Lymphocytes # 1.9 K/mm3 (0.7-4.5); Lymphocytes % 22.8 % (10-50); Mean Corpuscular HGB Conc 31.6 g/dL (31.8-35.4); Mean Corpuscular Hemoglobin 26.4 pg (27.0-31.2); Mean Corpuscular Volume 83.6 fl (81-99); Mean Platelet Volume 7.2 fl (7.4-10.4); Monocytes # 0.5 K/mm3 (0.1-1.0); Monocytes % 5.6 % (1.7-9.3); Neutrophils # 5.5 K/mm3 (1.8-7.8); Neutrophils % 68.2 % (37.0-80.0); Platelet Count 253 K/mm3 (142-424); Red Blood Count 5.26 M/mm3 (4.20-5.40); White Blood Count 8.1 K/mm3 (4.8-10.8)
--- NOTE | 2021-04-11 09:26 | PC.NURSE ---
pt has had low blood sugars this morning and glyburide was held
[2021-04-11 09:29] LABS: Chloride 107 mmol/L (98-107); Potassium 4.2 mmoL/L (3.5-5.1); Sodium 143 mmol/L (136-145)
[2021-04-11 09:31] LABS: Blood Urea Nitrogen 21 mg/dl (7-17); Creatinine Clearance Estimated 109 mL/min (50-200); Estimated Glomerular Filt Rate 64 ml/min (>60); GFR (African American) 77 ML/MIN (>60)
[2021-04-11 09:32] LABS: Anion Gap 12.2 mEq/L (5-15); Carbon Dioxide 28 mmol/L (22.0-30.0); Cholesterol 209 mg/dl (140-200); Glucose 84 mg/dl (74-100); Magnesium 2.1 mg/dl (1.6-2.3); Triglycerides 133 mg/dl (30-150); VLDL Cholesterol 27 mg/dL (0-40)
[2021-04-11 09:33] LABS: Chol/HDL Ratio 4.4 (1-3.5); HDL Cholesterol 48 mg/dl (40-60)
[2021-04-11 09:43] LABS: Direct LDL Cholesterol 113.76 mg/dL (100-129)
--- NOTE | 2021-04-11 10:09 | HMH.CNCARD ---
History of Present Illness Consult date: 04/11/21 Requesting physician: Pawan Castañeda Consult reason: chest pain Chief complaint: chest pain History of present illness: This is a 60-year-old white female with a known history of coronary artery disease who presented to the emergency department with complaints of chest pain. The patient states that her pain started on Friday and has continued to worsen. She is describing an aching pressure sensation in the substernal aspect of her chest that radiates over to the right side slightly and then into her back. She states that she also has some soreness in her abdomen diffusely. She states that her upper chest hurts and significantly worsened around 2:00 this morning and woke her up from her sleep. She states that the chest pain and pressure is associated with nausea. She denies any shortness of breath or diaphoresis. She states the pain is an 8 out of 10 in intensity. It is worse with exertion. Nothing is really been helping to improve the pain. She states that she just felt really bad yesterday and that is why she decided to come into the emergency department. She denies any fever, chills, vomiting, diarrhea, PND or orthopnea. [facility] History I have reviewed the patient's past medical history: Yes Medical History: Reports:: Anxiety, Atherosclerotic Heart Disease, Congestive Heart Failure, Coronary Artery Disease, Dementia, Depression, Diabetes Mellitus Type 2, Gastroesophageal Reflux Disease(GERD), Hyperlipidemia, Hypertension, Lung Disease (Sarcoidosis), Urinary Tract Infection Denies:: Diabetes Mellitus Type 1, Kidney Stones, Palpitations *Have you ever received a pneumonia vaccine?: No *Have you received a flu vaccine this season?: Yes Other Medical History: Reports: Arthritis, Hypothyroidism. Denies: Sickle Cell Disease Other Surgeries: Yes: Angioplasty, Appendectomy, Cardiac Catheterization, Colonoscopy, Coronary Stent, Dilation and Curettage, Other - *Social History Last grade of school completed: High school graduate Smoking Status: Never smoker Alcohol Intake: never Alcohol Intake Frequency:: other Substance Use Type: denies use *Occupational Status:: disabled Housing: house Household Members: spouse *Travel in the last 8 weeks: None - Psychiatric History Pschychiatric History:: Reports:: Anxiety, Depression Family Hx:: Coronary Artery Disease, Diabetes Meds Home Medications Medication Instructions Recorded Confirmed Type albuterol sulfate 90 mcg/actuation 1 puff IH Q4-6H PRN 09/25/17 04/11/21 History aerosol inhaler aspirin 81 mg tablet,delayed 81 mg PO DAILY 09/25/17 04/11/21 History release fluticasone propionate 50 1 spray NS DAILY 09/25/17 04/10/21 History mcg/actuation nasal spray,suspension nitroglycerin 0.4 mg sublingual 0.4 mg SUBLINGUAL Q5M PRN #30 tab 10/08/18 04/11/21 Rx tablet Famotidine [Acid Social Science Instructor] 20 mg PO DAILY 05/31/19 04/11/21 History Pregabalin [Lyrica 75mg Cap] 75 mg PO BID 06/01/19 04/11/21 History Ropinirole HCl 2 mg PO HS 06/01/19 04/11/21 History amitriptyline 25 mg tablet 25 mg PO HS tab 03/17/20 04/11/21 History isosorbide mononitrate 120 mg 120 mg PO DAILY #90 tab 02/22/21 04/11/21 Rx tablet,extended release 24 hr atorvastatin 80 mg tablet 80 mg PO DAILY #90 tab 03/16/21 04/11/21 Rx carvedilol 25 mg tablet 25 mg PO BID #180 tab 03/16/21 04/11/21 Rx clopidogrel 75 mg tablet 75 mg PO DAILY #90 tab 03/16/21 04/11/21 Rx cyclobenzaprine 10 mg tablet 10 mg PO TIDP PRN tab 03/16/21 04/11/21 History ferrous sulfate 325 mg (65 mg 325 mg PO DAILY tab 03/16/21 04/11/21 History iron) tablet glyburide 5 mg tablet 5 mg PO DAILY tab 03/16/21 04/11/21 History hydroxychloroquine 200 mg tablet 200 mg PO DAILY tab 03/16/21 04/11/21 History spironolactone 50 mg tablet 50 mg PO DAILY #90 tab 03/16/21 04/11/21 Rx Furosemide [Furosemide 40MG tAB*] 40 mg PO DAILY 04/10/21 04/11/21 History lisinopriL [Lisinopril] 5 mg PO DAILY 08
--- NOTE | 2021-04-11 14:55 | PC.NURSE ---
[id number] Castañeda about pain in patient's legs, gave ok to give dose of requip now
[2021-04-12] VITALS: PULSE 50
--- NOTE | 2021-04-12 03:09 | PC.NURSE ---
No acute changes this shift. Pt rested well. Cath site in the right groin area, dressing is C/D/I. Pt denies any pain, N/V. Pt has remained NSR on tele. Pt is independent in going to the bathroom and voiding. VSS, Call light within reach, no concerns at this time.
[2021-04-12 04:00] VITALS: BP 100/60; PULSE 50; PULSE 63; RESP 18; TEMP 36.5; O2SAT 95
[2021-04-12 06:09] VITALS: BP 133/59; PULSE 67; RESP 18; O2SAT 99
[2021-04-12 07:57] LABS: Chloride 103 mmol/L (98-107); Potassium 4.5 mmoL/L (3.5-5.1); Sodium 140 mmol/L (136-145)
[2021-04-12 08:00] VITALS: BP 98/61; PULSE 77; PULSE 80; RESP 16; TEMP 36.4; O2SAT 100
[2021-04-12 08:00] LABS: Blood Urea Nitrogen 20 mg/dl (7-17); Creatinine Clearance Estimated 109 mL/min (50-200); Estimated Glomerular Filt Rate 64 ml/min (>60); GFR (African American) 77 ML/MIN (>60)
[2021-04-12 08:01] LABS: Anion Gap 14.5 mEq/L (5-15); Calcium 9.2 mg/dl (8.4-10.2); Carbon Dioxide 27 mmol/L (22.0-30.0); Glucose 119 mg/dl (74-100)
[2021-04-12 08:39] VITALS: BP 118/62
--- NOTE | 2021-04-12 08:50 | HMH.ACPN2 ---
<Sri Sinha - Last Filed: 04/12/21 08:50> Internal Medicine - PN: Subj *Date: 04/12/21 *Time: 08:50 Interval history: Patient states she is feeling well this morning other than some upper abdominal pain. Her gallbladder ultrasound showed a slightly distended gallbladder but was otherwise unremarkable. She will likely need a HIDA scan outpatient. Cardiology wanted to keep the patient and repeat a BMP due to the amount of contrast that had to be used. Exam Vital signs and Labs for Last 24 Hours: Temp Pulse Resp BP Pulse Ox 97.5 F L 77 16 118/62 100 04/12/21 08:00 04/12/21 08:00 04/12/21 08:00 04/12/21 08:39 04/12/21 08:00 Laboratory Results - last 24 hr 04/11/21 08:36: WBC 8.1 D, RBC 5.26, Hgb 13.9, Hct 44.0, MCV 83.6, MCH 26.4 L, MCHC 31.6 L, RDW 16.0, Plt Count 253, MPV 7.2 L, Neut % (Auto) 68.2, Lymph % (Auto) 22.8, [place] % (Auto) 5.6, Eos % (Auto) 2.2, Baso % (Auto) 1.2, Neut # (Auto) 5.5, Lymph # (Auto) 1.9, [place] # (Auto) 0.5, Eos # (Auto) 0.2, Baso # (Auto) 0.1 04/11/21 08:36: Sodium 143, Potassium 4.2, Chloride 107, Carbon Dioxide 28, Anion Gap 12.2, BUN 21 H, Creatinine 0.90, Estimated Creat Clear 109, Estimated GFR 64, Est GFR ( Amer) 77 D, Glucose 84, Calcium 9.0, Magnesium 2.1, Triglycerides 133, Cholesterol 209 H, LDL Cholesterol Direct 113.76, VLDL Cholesterol 27, HDL Cholesterol 48, Cholesterol/HDL Ratio 4.4 H 04/12/21 06:34: Sodium 140, Potassium 4.5, Chloride 103, Carbon Dioxide 27, Anion Gap 14.5, BUN 20 H, Creatinine 0.90, Estimated Creat Clear 109, Estimated GFR 64, Est GFR ( Amer) 77, Glucose 119 H D, Calcium 9.2 I & O for Last 24 hours: Intake & Output 04/09/21 04/10/21 04/11/21 04/12/21 11:59 11:59 11:59 11:59 Intake Total 999 1195 / 1195 Balance 999 / 999 1195 / 1195 Weight 257 lb 4 oz 257 lb 15.053 oz - Constitutional no acute distress - *Routine HEENT Exam Head: Present: normocephalic Eye: Present: EOMI, PERRL ENT: Present: mucous membranes moist - *Routine Neck Exam Present: supple. Absent: lymphadenopathy - *Routine Respiratory Exam Present: CTA bilaterally - *Routine Cardiovascular Exam Present: RRR - *Routine Abdominal Exam Present: soft, normoactive bowel sounds, tenderness (Epigastric area/right upper quadrant) - *Routine Extremities Exam Absent: cyanosis, clubbing, edema - *Routine Skin Exam Present: warm. Absent: rash - *Routine Neurological Exam Present: alert, oriented X3 Assessment and Plan (1) Unstable angina pectoris Status: Acute Category: Medical Code(s): I20.0 - Unstable angina (2) Abdominal pain Status: Acute Category: Medical Code(s): R10.9 - Unspecified abdominal pain (3) Type 2 diabetes mellitus Status: Chronic Category: Medical Code(s): E11.9 - Type 2 diabetes mellitus without complications (4) CAD (coronary artery disease) Status: Chronic Qualifiers: Coronary Disease-Associated Artery/Lesion type: [place] artery [place] vs. transplanted heart: [place] heart Associated angina: with unstable angina Qualified Code(s): I25.110 - Atherosclerotic heart disease of [place] coronary artery with unstable angina pectoris Category: Medical Code(s): I25.10 - Atherosclerotic heart disease of [place] coronary artery without angina pectoris (5) HLD (hyperlipidemia) Status: Chronic Qualifiers: Hyperlipidemia type: mixed hyperlipidemia Qualified Code(s): E78.2 - Mixed hyperlipidemia Category: Medical Code(s): E78.5 - Hyperlipidemia, unspecified (6) HTN (hypertension) Status: Chronic Qualifiers: Hypertension type: essential hypertension Category: Medical Code(s): I10 - Essential (primary) hypertension (7) GILSON (obstructive sleep apnea) Status: Chronic Category: Medical Code(s): G47.33 - Obstructive sleep apnea (adult) (pediatric) (8) Sarcoidosis Status: Chronic Category: Medical Code(s): D86.9 - Sarcoidosis, unspecified - A
--- NOTE | 2021-04-12 09:31 | HMH.PNCARD ---
Subjective Date: 04/12/21 Time: 09:31 Principal diagnosis: cad Interval history: This is a 60-year-old female who was admitted to the hospital with angina. Her symptoms were felt to be unstable angina and she was taken to the cardiac catheterization laboratory. The patient was found to have widely patent coronary artery disease with a chronically occluded circumflex artery which fills via left to left collaterals. She did have a reduced ejection fraction on LV gram at 35 to 40%. It was recommended that she have a formal echocardiogram to better evaluate her ejection fraction to determine if she requires an AICD to be placed. Echocardiogram shows an ejection fraction of 50%. No AICD is indicated at this time. The patient's LVEDP was also high so her Lasix was increased to 80 mg daily for diuresis to reduce her LVEDP. She denies any chest pain or pressure. She denies any shortness of breath or edema. She denies any fever, chills, nausea, vomiting, diarrhea, PND or orthopnea. She denies any right radial pain. Exam Vital signs and Labs for Last 24 Hours: Temp Pulse Resp BP Pulse Ox 97.5 F L 77 16 118/62 100 04/12/21 08:00 04/12/21 08:00 04/12/21 08:00 04/12/21 08:39 04/12/21 08:00 Laboratory Results - last 24 hr 04/11/21 08:36: Sodium 143, Potassium 4.2, Chloride 107, Carbon Dioxide 28, Anion Gap 12.2, BUN 21 H, Creatinine 0.90, Estimated Creat Clear 109, Estimated GFR 64, Est GFR ( Amer) 77 D, Glucose 84, Calcium 9.0, Magnesium 2.1, Triglycerides 133, Cholesterol 209 H, LDL Cholesterol Direct 113.76, VLDL Cholesterol 27, HDL Cholesterol 48, Cholesterol/HDL Ratio 4.4 H 04/12/21 06:34: Sodium 140, Potassium 4.5, Chloride 103, Carbon Dioxide 27, Anion Gap 14.5, BUN 20 H, Creatinine 0.90, Estimated Creat Clear 109, Estimated GFR 64, Est GFR ( Amer) 77, Glucose 119 H D, Calcium 9.2 I & O for Last 24 hours: Intake & Output 04/09/21 04/10/21 04/11/21 04/12/21 23:59 23:59 23:59 23:59 Intake Total 1240 / 1240 955 / 955 Balance 1240 / 1240 955 / 955 Weight 252 lb 257 lb 15.053 oz Narrative: [facility] shows: Widely patent coronary arteries as described above with a chronically occluded circumflex artery which fills via left to left collaterals Reduced ejection fraction Elevated LVEDP PLAN 1. Medical management for coronary artery disease 2. A formal echocardiogram should be obtained to better quantitate ejection fraction to determine if patient is a candidate for an AICD 3. Lower LVEDP which is likely contributing to patient's angina 4. Aggressive risk factor modification with avoidance of tobacco products Telemetry strip is sinus rhythm. - Constitutional no acute distress, obese - *Routine HEENT Exam Head: Present: normocephalic, atraumatic Eye: Present: EOMI, PERRL ENT: Present: mucous membranes moist - *Routine Neck Exam Present: supple, full ROM, normal carotid upstroke. Absent: JVD, carotid bruit, lymphadenopathy - *Routine Respiratory Exam Present: CTA bilaterally - *Routine Cardiovascular Exam Present: RRR, Normal S1, Normal S2. Absent: murmur - *Routine Abdominal Exam Present: soft, normoactive bowel sounds. Absent: tenderness, distended - *Routine Extremities Exam Present: full ROM, pulses intact, normal capillary refill. Absent: cyanosis, clubbing, edema - *Routine Skin Exam Present: intact, warm. Absent: erythema, rash - *Routine Neurological Exam Present: alert, oriented X3, CN II-XII intact. Absent: sensory deficit, motor deficit Progress Note: A&P (1) Elevated left ventricular end-diastolic pressure (LVEDP) Status: Acute (2) CAD (coronary artery disease) Status: Chronic (3) Type 2 diabetes mellitus Status: Chronic (4) HLD (hyperlipidemia) Status: Chronic (5) HTN (hypertension) Status: Chronic (6) GILSON (obstructive sleep apnea) Status: Chronic (7) Sarcoidosis Status: Chronic Assessment and Plan for All Diagnoses::
--- NOTE | 2021-04-12 11:51 | PC.NURSE ---
DC paperwork reviewed w/ pt. She is currently waiting on ride, is on his way here she states.
--- NOTE | 2021-04-15 15:53 | HMH.DCSUM ---
General - General Admission date:: 04/11/21 Discharge date: 04/12/21 HPI HPI: Ms. Walters is a 60-year-old female with history of coronary artery disease with stents in 2019, hypothyroidism, arthritis, incontinence, restless leg syndrome, hypertension, hypertension, obstructive sleep apnea, cardiomyopathy and sarcoidosis who presented to [facility] after experiencing intermittent chest and abdominal pain for the last 3-4 days. She describes the discomfort as starting in the epigastric region and radiating into the back. It also has made her sore in her upper chest and throughout her abdomen. She has had some nausea but no vomiting. She denies being short of breath and has had no heart palpitations. She said she just felt awful yesterday and thus presented to the ER for evaluation. This a.m. she is somewhat better. She is n.p.o. for cardiac evaluation. Evaluation in the emergency room white blood cell count was found to be elevated. She received a liter of IV fluids, nitroglycerin, aspirin, Pepcid IV, Reglan IV.Chest x-ray revealed faint left basilar opacity with possible infiltrate. CT of the abdomen Revealed no acute intra-abdominal pathology. She was admitted for further evaluation and treatment with cardiology consult. Troponins normal x3. She is followed by cardiology, Dr. Huang, with last visit being in January of this year. She states she had a good checkup. Hospital Course Hospital Course: Cardiology was consulted and a right upper quadrant ultrasound was ordered as well as her chest pain was somewhat atypical and raised the possibility of gallbladder dysfunction. The gallbladder ultrasound showed a slightly distended gallbladder but was otherwise unremarkable. She was seen in consultation by cardiology and they wanted to perform a heart cath. It showed widely patent coronary arteries with a chronically occluded circumflex artery. The patient had a reduced ejection fraction along with an elevated LVEDP. Cardiology planned medical management for coronary artery disease and also ordered an echo. They increased her Lasix to 80 mg daily and wanted the patient kept overnight to monitor her renal function. By 04/12/2021, she was feeling well other than some mild upper abdominal pain. It was felt she would need a HIDA scan on an outpatient basis. Her renal function was stable. Her echo was reviewed by cardiology and showed an EF of 50% with grade 1 diastolic dysfunction. She was stable to be discharged home. Objective Vital signs: Temp Pulse Resp BP Pulse Ox 97.5 F L 77 16 118/62 100 04/12/21 08:00 04/12/21 08:00 04/12/21 08:00 04/12/21 08:39 04/12/21 08:00 Narrative: - Constitutional no acute distress - *Routine HEENT Exam Head: Present: normocephalic Eye: Present: EOMI, PERRL ENT: Present: mucous membranes moist - *Routine Neck Exam Present: supple. Absent: lymphadenopathy - *Routine Respiratory Exam Present: CTA bilaterally - *Routine Cardiovascular Exam Present: RRR - *Routine Abdominal Exam Present: soft, normoactive bowel sounds, tenderness (Epigastric area/right upper quadrant) - *Routine Extremities Exam Absent: cyanosis, clubbing, edema - *Routine Skin Exam Present: warm. Absent: rash - *Routine Neurological Exam Present: alert, oriented X3 DS: Diagnosis - Discharge Diagnosis (1) Elevated left ventricular end-diastolic pressure (LVEDP) Status: Acute (2) CAD (coronary artery disease) Status: Chronic (3) Type 2 diabetes mellitus Status: Chronic (4) HLD (hyperlipidemia) Status: Chronic (5) HTN (hypertension) Status: Chronic (6) GILSON (obstructive sleep apnea) Status: Chronic (7) Sarcoidosis Status: Chronic Discharge Plan - Patient Discharge Instructions ACTIVITY: Continue current activity DIET: continue same diet Additional Instructions: Patient needs to have a BMP in 1 week, prior to visit in C
== END 2021-04-12 12:30 | disposition home or self-care (01) ==
LOC: ER 21:18 → 2ND 23:00
PROVIDERS: Internal Medicine; Admitting Provider Family Medicine; Emergency Provider Emergency Medicine; Visit Provider Family Medicine
DX: R07.9 Chest pain, unspecified (principal); Z20.822 Contact with and (suspected) exposure to COVID-19; I25.110 Atherosclerotic heart disease of native coronary artery with unstable angina pectoris; Z95.5 Presence of coronary angioplasty implant and graft; I11.0 Hypertensive heart disease with heart failure; I50.9 Heart failure, unspecified; E11.9 Type 2 diabetes mellitus without complications; D86.9 Sarcoidosis, unspecified; G47.33 Obstructive sleep apnea (adult) (pediatric); Z79.84 Long term (current) use of oral hypoglycemic drugs; I25.82 Chronic total occlusion of coronary artery
CPT/HCPCS: G0378; 36415; 71046; 74176; 76705; 80048; 80061; 80076; 81001; 82150; 82962; 83690; 83735; 84145; 84484; 85025; 85651; 86140; 93005; 93306; 93458; 96365; 96375; 99152; 99284; C1725; C1769; J1644; J2405; Q9967; U0003

== ENCOUNTER → 2021-04-18 14:45 | Outpatient (CLI) | payer MEDICARE, SELFPAY ==
[2021-04-18 15:52] LABS: Alanine Aminotransferase 21 U/L (12-78); Albumin Level 4.1 g/dl (3.5-5.0); Alkaline Phosphatase 103 U/L (38-126); Aspartate Amino Transferase 22 U/L (14-36); Bilirubin,Direct 0.5 mg/dl (0.0-0.4); Bilirubin,Total 0.5 mg/dl (0.2-1.3); Chol/HDL Ratio 4.5 (1-3.5); Cholesterol 198 mg/dl (140-200); HDL Cholesterol 44 mg/dl (40-60); Total Protein,Serum 6.8 g/dl (6.3-8.2); Triglycerides 166 mg/dl (30-150); VLDL Cholesterol 33 mg/dL (0-40)
[2021-04-18 16:02] LABS: Direct LDL Cholesterol 106.57 mg/dL (100-129)
[2021-04-18 17:29] LABS: Chloride 102 mmol/L (98-107); Potassium 4.7 mmoL/L (3.5-5.1); Sodium 138 mmol/L (136-145)
[2021-04-18 17:32] LABS: Anion Gap 14.7 mEq/L (5-15); Blood Urea Nitrogen 46 mg/dl (7-17); Carbon Dioxide 26 mmol/L (22.0-30.0); Estimated Glomerular Filt Rate 42 ml/min (>60); GFR (African American) 50 ML/MIN (>60)
[2021-04-18 17:33] LABS: Calcium 8.9 mg/dl (8.4-10.2); Glucose 99 mg/dl (74-100)
== END ==
PROVIDERS: Internal Medicine Cardiovascular Disease; Visit Provider Nurse Practitioner Family
DX: E66.9 Obesity, unspecified (principal); E78.5 Hyperlipidemia, unspecified; G47.33 Obstructive sleep apnea (adult) (pediatric); I10 Essential (primary) hypertension; I25.10 Atherosclerotic heart disease of native coronary artery without angina pectoris; Z95.5 Presence of coronary angioplasty implant and graft; Z68.39 Body mass index [BMI] 39.0-39.9, adult
CPT/HCPCS: 36415; 80048; 80061; 80076

== ENCOUNTER 2021-10-29 13:58 | Emergency (ER) | payer MEDICARE, SELFPAY ==
[2021-10-29 14:22] VITALS: BP 107/64; PULSE 84; RESP 19; TEMP 37.1; O2SAT 100; BMI 43.5
--- NOTE | 2021-10-29 14:59 | HMH.EDUTC ---
[facility] Disposition Clinical Impression: Lower extremity edema Disposition: Home, Self-Care Condition on Discharge: Good Instructions: Edema (Alternative Therapy), Furosemide, Edema Additional Instructions: Take 1 extra lasix for the next 2-3 days and make sure to follow up Cardiology Return if needed Straight to ER if any life threatening symptoms Prop legs up and dont let them dangle when you are sitting down Referrals: Carmencita Paula MD [Staff Physician] - As needed Manish Avelar MD [Staff Physician] - Time of Disposition: 15:01 Medical Decision Making - Chandu Inquiry Pt receiving controlled substance: No Chandu was queried for this patient: No Vital Signs: 10/29/21 14:22 10/29/21 15:04 Temperature 98.8 F 98.8 F Temperature Source Oral Oral Pulse Rate 84 Pulse Rate [Right Radial] 84 Respiratory Rate 19 19 Blood Pressure 107/64 L Blood Pressure [Right Arm] 107/64 L Blood Pressure Mean [Right Arm] 78 Blood Pressure Source Automatic Cuff Blood Pressure Source [Right Arm] Automatic Cuff Blood Pressure Position Sitting Blood Pressure Position [Right Arm] Sitting 02 Sat by Pulse Oximetry 100 Oxygen Delivery Method Room Air Room Air - Physician Consults Physician Consulted: Cardiology Time: 15:03 Reason -: Cardiology Eval/Care Comment/Response: Spoke with Cardiology Naomy Muller about patient and no pitting edema noted at this time Advised to have patient take 1 extra lasix for the next 2-3 days and follow up in the clinic [facility] HPI - General Stated complaint: bilateral leg/feet swollen Time Seen by Provider: 10/29/21 14:25 Mode of Arrival: Ambulatory Source of Information: Patient Limitations: No Limitations Description of Symptoms (Recalled from Triage Doc. by RN): Pt stated that she has bilateral swelling in both legs, and feet. This has been going on for the last week. HEENT Symptoms (Recalled from RN notes): No Resp Symptoms (Recalled from RN notes): No Skin Symptoms (Recalled from RN notes): Yes (edema) MS Symptoms (Recalled from RN notes): No Functional Status (Recalled from RN notes): n/a - History of Present Illness Provider Complaint: Patient state that she has been having swelling in her lower extremities on and off for the last 2-3 days States that today they are better and she came in to see Cardiology but her insurance had changed so she came to the [facility] for evaluation and treatment - Related Data Home Medications Medication Instructions Recorded Confirmed albuterol sulfate 90 mcg/actuation 1 puff IH Q4-6H PRN 09/25/17 05/24/21 aerosol inhaler aspirin 81 mg tablet,delayed 81 mg PO DAILY 09/25/17 05/24/21 release fluticasone propionate 50 1 spray NS DAILY 09/25/17 05/24/21 mcg/actuation nasal spray,suspension Pregabalin [Lyrica 75mg Cap] 75 mg PO BID 06/01/19 05/24/21 Ropinirole HCl 2 mg PO HS 06/01/19 05/24/21 amitriptyline 25 mg tablet 25 mg PO HS tab 03/17/20 05/24/21 cyclobenzaprine 10 mg tablet 10 mg PO TIDP PRN tab 03/16/21 05/24/21 ferrous sulfate 325 mg (65 mg 325 mg PO DAILY tab 03/16/21 05/24/21 iron) tablet glyburide 5 mg tablet 5 mg PO DAILY tab 03/16/21 05/24/21 hydroxychloroquine 200 mg tablet 200 mg PO DAILY tab 03/16/21 05/24/21 Levothyroxine Sodium 100 mcg PO DAILY 04/11/21 05/24/21 [Levothyroxine 100mcg (0.1MG) Tab] Ropinirole HCl [Requip 1mg Tablet] 1 mg PO 1200 04/11/21 05/24/21 Previous Rx's Medication Instructions Recorded nitroglycerin 0.4 mg sublingual 0.4 mg SUBLINGUAL Q5M PRN #30 tab 10/08/18 tablet atorvastatin 80 mg tablet 80 mg PO DAILY #90 tab 05/24/21 carvedilol 25 mg tablet 25 mg PO BID #180 tab 05/24/21 clopidogrel 75 mg tablet 75 mg PO DAILY #90 tab 05/24/21 famotidine 20 mg tablet 20 mg PO DAILY #30 tab 05/24/21 furosemide 40 mg tablet 40 mg PO DAILY #30 tab 05/24/21 isosorbide mononitrate 120 mg 120 mg PO DAILY #90 tab 05/24/21 tablet,extended release 24 hr lisinopril 5 mg tablet 5 mg PO DAILY
[2021-10-29 15:04] VITALS: BP 107/64; PULSE 84; RESP 19; TEMP 37.1; O2SAT 100
== END 2021-10-29 15:04 | disposition home or self-care (01) ==
PROVIDERS: Emergency Provider Nurse Practitioner
DX: R60.0 Localized edema (principal); I25.10 Atherosclerotic heart disease of native coronary artery without angina pectoris; E03.9 Hypothyroidism, unspecified; E11.9 Type 2 diabetes mellitus without complications; K21.9 Gastro-esophageal reflux disease without esophagitis; F41.9 Anxiety disorder, unspecified
CPT/HCPCS: G0463; 99212

== ENCOUNTER 2025-06-23 14:32 | Outpatient (CLI) | payer MEDICARE, SELFPAY ==
--- NOTE | 2025-06-23 14:30 | CA_ITS ---
APPROVED REPORT EXAM: Comprehensive 2D, Doppler, and color-flow Echocardiogram Qc Tech: Hillary Vuong RT(R) Ht: 5 ft 6 in Wt: 193lbs BSA: 1.97 BP: 120/71 mmHg Indications: CAD, edema, HTN, HLD Echo Enhancing Agent Indication: Endocardial border delineation Agent(s) / Amount(s) Used: Definity 2 cc 2D Dimensions EF AP4 45.50 % GL Strain -20.8 % M-Mode Dimensions RVDd 2.84 cm (0.9-2.6) LA Diam 2.83 cm (1.9-4.0) LVDd 4.52 cm (3.5-5.7) LVDs 3.28 cm (3.5-5.7) IVSd 1.04 cm (0.6-1.1) PWd 0.92 cm (0.6-1.1) EF (Teich) 53.40% FS 27.40% EDV (Teich) 93.40 mL ESV (Teich) 43.50 mL LV Diastology E Decel Time 230 (160-240 msec) E/A Ratio 0.8 Mitral Valve MV E Max Bridger. 66.0 (40-130 cm/s) MV A Velocity 82.0 (40-130 cm/s) E/A Ratio 0.81 MV PHT 67.0 ms Left Ventricle The left ventricle is normal size. Left ventricular systolic function is mildly to moderately reduced. There is increased left ventricular wall thickness. There is severe hypokinesis of the septal and anteroseptal LV robledo. Grade 1 diastolic dysfunction is present. No left ventricle thrombus noted on this study. LVEF is 40% Right Ventricle The right ventricle is normal size. The right ventricular systolic function is normal. Atria Left atrium is mildly dilated. The right atrium size is normal. There is no color Doppler evidence of interatrial shunt. Aortic Valve The aortic valve is mildly thickened. There is no hemodynamically significant aortic valvular stenosis. Trace aortic regurgitation is present. Mitral Valve The mitral valve is normal in structure. No evidence of mitral valve stenosis. Trace mitral regurgitation is present. Tricuspid Valve The tricuspid valve leaflets are thin and pliable. Trace tricuspid regurgitation. There is insufficient TR jet to estimate RVSP. Pulmonic Valve The pulmonary valve is grossly normal in structure. Trace pulmonic valve regurgitation is present. Great Vessels The aortic root is normal in size. IVC is normal in size and collapses >50% with inspiration. Pericardium There is no pericardial effusion. Other Information Study Quality: Fair Conclusion Mild to moderate reduction in LV systolic function (LVEF 40%). Severe hypokinesis of the septal and anteroseptal LV robledo. Mild LA dilation. No significant valvular stenosis or regurgitation. Electronically signed by : Courtney Jones MD 07/02/2025 16:00:25
--- OUTSIDE RECORDS SUMMARY | 2025-06-23 15:03 | XMS_ITS | Clinical Summary ---
Author Organization [email or web address] are Address [address] [place] [address] Phone Care Team Providers Care Electro Mechanical Engineer Name Role Phone Unavailable Unavailable Conditions or Problems No information available. Medications No information available. Medications Administered No information available. Allergies, Adverse Reactions, Alerts No information available. Results No information available. Plan of Care No information available. Procedures No information available. Vital Signs No information available. Immunizations No information available. Advance Directives No information available.
--- OUTSIDE RECORDS SUMMARY | 2025-06-23 15:04 | XMS_ITS | Clinical Summary ---
Author Organization [facility] Address [address] [place] [address] Care Team Providers Care Ecommerce Project Manager Name Role Phone Delphine Paula PA-C Primary Care Provider [phone] Allergies No known active allergies Medications aspirin (ASPIRIN) [address] tablet Take 81 mg by mouth Daily. Active atorvastatin (LIPITOR) 80 mg tablet Take 80 mg by mouth At bedtime. Active carvediloL (COREG) 25 mg Take 25 mg by mouth Twice a day. Active clopidogreL (PLAVIX) 75 mg tablet Take 75 mg by mouth Daily. Active cyanocobalamin (VITAMIN B12) 1,000 mcg/mL injection Administer 1,000 mcg intramuscularly Every month. Active cyclobenzaprine (FLEXERIL) 10 mg tablet Take 10 mg by mouth At bedtime. Active famotidine (PEPCID) 20 mg tablet Take 20 mg by mouth Every morning. Active Ferrous Sulfate 27 mg iron Tab Take 27 mg by mouth Daily. Active furosemide (LASIX) 40 mg tablet Take 40 mg by mouth Daily. Active glyBURIDE (DIABETA) 5 mg tablet Take 5 mg by mouth Daily. Active hydrOXYchloroQUI NE (PLAQUENIL) 200 mg tablet Take 400 mg by mouth Daily. Active isosorbide mononitrate (IMDUR) 120 mg CR tablet Take 120 mg by mouth Daily. Active levothyroxine (SYNTHROID) 100 mcg tablet Take 100 mcg by mouth Daily. Active linaGLIPtin (TRADJENTA) 5 mg tablet Take 5 mg by mouth Daily. Active lisinopriL (PRINIVIL) 5 mg tablet Take 5 mg by mouth Daily. Active pregabalin (LYRICA) 75 mg capsule Take 75 mg by mouth Twice a day. Active rOPINIRole (REQUIP) 1 mg tablet Take 1 mg by mouth Three times a day. Active Spironolactone 50 mg tablet Take 50 mg by mouth Daily. Active tiZANidine (ZANAFLEX) 4 mg tablet Take 4 mg by mouth At bedtime. Active thiamine (VITAMIN B-1) 100 mg tablet Take 50 mg by mouth Daily. Active Pyridoxine (VITAMIN B-6) 50 mg tablet Take 50 mg by mouth Daily. Active oxybutynin (DITROPAN XL) 5 mg ER tabletIndication s:Urge incontinence of urine Take 1 Tablet by mouth Daily. 30 Tablet 06/13/20 21 Active Active Problems No known active problems Family History Medical History Relation Name Comments Prostate Cancer Neg Hx Social History Tobacco Use Types Packs/Day Years Used Date Smoking Tobacco: Never Smokeless Tobacco: Never Alcohol Use Standard Drinks/Week Comments Never 0 (1 standard drink = 0.6 oz pur e alcohol) Comments Unknown Sex and Gender Information Value Date Recorded Sex Assigned at Not on file Legal Sex Female 10:15 AM EDT Gender Identity Not on file Sexual Orientation Not on file Last Filed Vital Signs Vital Sign Reading Time Taken Comments Blood Pressure 124/72 06/13/2021 3:23 PM EDT Pulse - - Temperature - - Respiratory Rate - - Oxygen Saturation - - Inhaled Oxygen Concentration - - Weight 114.3 kg (252 lb) 06/13/2021 3:23 PM EDT Height 172.7 cm (5' 8 ) 06/13/2021 3:23 PM EDT Body Mass Index 38.32 06/13/2021 3:23 PM EDT Plan of Treatment Health Maintenance Due Date Last Done Comments COLOGUARD 1959 COLONOSCOPY 1959 Colorectal Screening Combination 1959 FIT 1959 HEP C SCREENING 1959 SIGMOIDOSCOPY 1959 ANNUAL WELLNESS EXAM 1962 DTAP/TDAP/TD VACCINE (1 - Tdap) 1978 PNEUMOCOCCAL VACCINE 65+ YEA RS (1 of 1 - PCV) 2009 Shingles Vaccine (Shingrix) (1 of 2) 2009 DEXA SCAN EVERY 2 YR (Osteop orosis Screen) 2024 INFLUENZA VACCINE (#1) 2025 HEP A VACCINE Aged Out No longer elig ible based on patient's age to complete this topic HIB VACCINE Aged Out No longer eligi ble based on patient's age to complete this topic ROTOVIRUS VACCINE Aged Out No longer eligible based on patient's age to complete this topic Insurance [employer]UE MEDICARE ACCESS Care Teams Ecommerce Project Manager Relationship Specialty Start Date End Date Delphine Paula PA-C [id number] [phone] PCP - General Physician Sound Editor 06/13/21
--- OUTSIDE RECORDS SUMMARY | 2025-06-23 15:04 | XMS_ITS | Encounter Summary ---
Author Organization [facility] Address [address] [place] [address] Care Team Providers Care Aerospace Medicine Physician Name Role Phone Unavailable Primary Care Provider Unavailabl e Encounter Details Date Type Department Care Team (Late st Contact Info) Description 06/28/2024 [facility] [place] Community Practice Provider, Generic External Data Social History Tobacco Use Types Packs/Day Years Used Date Smoking Tobacco: Never Assessed Comments Unknown Sex and Gender Information Value Date Recorded Sex Assigned at Not on file Legal Sex Female 8:10 PM EST Gender Identity Not on file Sexual Orientation Not on file documented as of this encounter Plan of Treatment Not on file documented as of this encounter Procedures Procedure Name Priority Date/Time Associated Diagnosis Comments HEMOGLOBIN A1C Routine 06/08/2024 documented in this encounter Results * HM HEMOGLOBIN A1C (06/08/2024) Hemoglobin A1C 5.5 % Comment:[facility] us Historical Provider HEALTH MAINTENANCE Final Result documented in this encounter Visit Diagnoses Not on filedocumented in this encounter
--- OUTSIDE RECORDS SUMMARY | 2025-06-23 15:04 | XMS_ITS | Clinical Summary ---
Author Organization [facility] Address [address] [place] [address] Care Team Providers Care Stone Rubber Name Role Phone Unavailable Primary Care Provider Unavailabl e Social History Tobacco Use Types Packs/Day Years Used Date Smoking Tobacco: Never Assessed Comments Unknown Sex and Gender Information Value Date Recorded Sex Assigned at Not on file Legal Sex Female 8:10 PM EST Gender Identity Not on file Sexual Orientation Not on file Plan of Treatment Health Maintenance Due Date Last Done Comments CT Colonography 1959 Dexa Scan 1959 Fecal DNA 1959 Fecal occult blood test (FOBT,FIT) 1959 Tetanus: Every 10yrs (RETIRED) 1959 Depression Screening/Follow- Up (PHQ-2/9) 1971 HIV Screening 1974 Hepatitis C Screening 1977 HPV/Cotest 1989 Pneumococcal Vaccine: 50+ Ye ars (1 of 1 - PCV) 2009 Zoster Vaccines (1 of 2) 2009 Cervical Cancer Screening 06/15/2023 Pap Smear 06/15/2023 06/15/2020 Wellness Visit 06/24/2024 06/24/2023 Falls Risk Assessment 2024 COVID-19 Vaccine (1 - 2023-2 5 season) 2025 Influenza Vaccine (#1) 2025 , 06/19/2018, 06/16/2017, Additional history exists Colonoscopy 10/14/2032 10/14/2022, 10/02, 03/02/2018 Colorectal Cancer Screening/Monitoring 10/14/2032 RSV Vaccines (1 - 1-dose 75+ series) 2034 Mammogram Discontinued 01/15/2024, 12/30, 07/06/2020
[2025-06-23] MEDS: DEFINITY US ECHO CONTRAST 2ML INJ 2 MG IV (15:26)
== END 2025-06-23 23:59 | disposition home or self-care (01) ==
PROVIDERS: PCP Nurse Practitioner; Visit Provider Nurse Practitioner Family
DX: I11.9 Hypertensive heart disease without heart failure (principal); I25.10 Atherosclerotic heart disease of native coronary artery without angina pectoris; E78.5 Hyperlipidemia, unspecified; R93.1 Abnormal findings on diagnostic imaging of heart and coronary circulation; R60.9 Edema, unspecified
CPT/HCPCS: 93306; Q9957

== ENCOUNTER 2025-06-25 14:19 | Emergency (ER) | payer MEDICARE, SELFPAY ==
--- OUTSIDE RECORDS SUMMARY | 2023-02-05 20:00 | XMS_ITS | Continuity of Care Document ---
Author Organization [facility] Address [address] [place] [address] Phone Care Team Providers Care Metal Bonding Crib Attendant Name Role Phone Ray Cruz Unavailable Unavailable Medications Medication Instructions Dosage Effective Dates (start - stop) Status Comments Plaquenil 200 mg tablet 1 tablet once a day for 90 days - Active Plaquenil 200 mg tablet 1 tablet 2 times a day for 30 days - Active Advance Directives Directive Yes / No Effective Date File Name No Information Encounters Encounter Description Practice Location Reason(s) For Visit Diagnoses Date Provider Providers Copied on Encounter [facility], [address] [facility] [place], [place], [id number] , [place] tel:[phone] [facility] Polyarthritis, unspecifiedTrigge r finger, unspecified fingerPersonal history of diseases of the blood and blood-forming organs and certain disorders involving the immune mechanismTrochant erna bursitis, right hip 3 Anthony Bell. [address] [place], [address], [place]. tel:[phone] [facility], [address] [place], [place], [id number] , [place] tel:[phone] [facility] Trigger finger, unspecified fingerPolyarthrit is, unspecifiedPerson al history of diseases of the blood and blood-forming organs and certain disorders involving the immune mechanismTrochant erna bursitis, left hip 3 Anthony Bell. [address] [place], [address], [place]. tel:[phone] [facility], [address], [facility], [place], [id number] , [place] tel: [phone] [facility] Personal history of diseases of the blood and blood-forming organs and certain disorders involving the immune mechanismTrigger finger, unspecified fingerPolyarthrit is, unspecified [address] [facility], [place], [address], [place]. tel: [phone] [facility], [address], [facility], [place], [id number] , [place] tel: [phone] [facility] Elevated C-reactive protein (CRP)Personal history of diseases of the blood and blood-forming organs and certain disorders involving the immune mechanismElevated erythrocyte sedimentation ratePolyarthritis , unspecified 1 Anthony Ray. [address] [place], [address], [place]. tel: [phone] [facility], [address], [facility], [place], [id number] , [place] tel:[phone] [facility] Trochanteric bursitis, left hipPersonal history of diseases of the blood and blood-forming organs and certain disorders involving the immune mechanismPolyarth ritis, unspecified [address] [facility] [place], [address], [place]. tel:[phone] Family History Family Member Type Diagnosis Age At Onset No Information Payers Payer name Insurance type Covered alliance party ID Authoriza tion(s) No Information Social History Type Description Quantity Date Captured Comments Sex Female Smoking Status No Information Chief Complaint And Reason For Visit No Information Reason For Referral Reason For Referral No Information History Of Present Illness Encounter Date Complaint History Of Prese nt Illness No Information Functional Status Date Functional Assessmen t No Information Instructions Date Instruction Additional Infor mation No Information Assessments Type Assessment Date No Information Patient Care Teams Name Effective Dates (start - stop) Status Members No Information
[2025-06-25 14:21] VITALS: BP 139/101; PULSE 73; RESP 14; TEMP 36.7; O2SAT 100; BMI 29.9
[2025-06-25 14:27] VITALS: BP 139/101; PULSE 65; O2SAT 100
--- OUTSIDE RECORDS SUMMARY | 2025-06-25 14:28 | XMS_ITS | Encounter Summary ---
Author Organization [facility] [place] [address] Care Team Providers Care Soccer Referee Name Role Phone Pat Connelly MD Primary Care Provider Vanessa Burgos MD Primary Care Provider [phone] Karina Beach APRN Primary Care Provider [phone] Encounter Details Date Type Department Care Team (Latest Contact Info) Description 02/12/2013 Pre-Imaging Procedure Adult Med [address] [place], [place] [id number] Nikkie Galvez, JULIO Supraclavicular adenopathy (Primary Dx) Social History Tobacco Use Types Packs/Day Years Used Date Smoking Tobacco: Never Smokeless Tobacco: Never Alcohol Use Standard Drinks/Week Comments No 0 (1 standard drink = 0.6 oz pur e alcohol) Comments No Sex and Gender Information Value Date Recorded Sex Assigned at Not on file Legal Sex Female 7:56 PM EDT Gender Identity Not on file Sexual Orientation Not on file documented as of this encounter Plan of Treatment Not on file documented as of this encounter Results * PT / INR (02/13/2013 9:14 AM EDT) PT 11.5 9.5 - 12.5 second(s) [facility] INR 1.04 0.88 - 1.13 [facility] Comment: Level of Therapy Indications Target INR Range Standard Dose Treatment and prophylaxis of venous 2.0 - 3.0 thrombosis, pulmonary embolism High Dose High risk patients with mechanical 2.5 - 3.5 heart valves Blood specimen (specimen) UPPER LIMB STRUCTURE / Unknown 02/13/2013 9:14 AM EDT 02/13/2013 9:17 AM EDT us Martin Castanon MD HEMATOLOGY ORDERABLES Final R esult Performing Organization Address City/[facility]/ZIP Co de Phone Number [facility] [address] [place] [address] * (ABNORMAL) CBC (02/13/2013 9:14 AM EDT) WBC 8.1 4.0 - 11.0 x10(3)/mcL [facility] RBC 5.28(H) 4.00 - 5.10 x10(6)/mcL [facility] Hgb 12.2 12.0 - 15.7 gm/dL [facility] Hct 38.8 36.0 - 45.9 % [facility] MCV 73.5(L) 80.0 - 95.8 fL [facility] MCH 23.2(L) 27.0 - 33.2 pg [facility] MCHC 31.5(L) 33.0 - 36.0 gm/dL [facility] RDW 18.1(H) 11.5 - 14.5 % [facility] Platelet 334 150 - 400 x10(3)/mcL [facility] MPV 7.8 7.0 - 12.0 fL [facility] Blood specimen (specimen) UPPER LIMB STRUCTURE / Unknown 02/13/2013 9:14 AM EDT 02/13/2013 9:17 AM EDT us Martin Castanon MD HEMATOLOGY ORDERABLES Final R esult [facility] [address] [place] [address] documented in this encounter Visit Diagnoses Diagnosis Supraclavicular adenopathy- Primary Enlargement of lymph nodes documented in this encounter Care Teams Soccer Referee Relationship Specialty Start Date End Date Pat Connelly MD PCP - General 12/29/10 07/25/13 Vanessa Connelly MD [address] [place] [id number] PCP - General Family Medicine 07/26/13 11/20/16 Karina Beach APRN [address] [place], [place] [phone] PCP - General Nurse Practitioner-Family 11/21/1601/30 documented as of this encounter
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
--- OUTSIDE RECORDS SUMMARY | 2025-06-25 14:28 | XMS_ITS | Data Portability ---
Author Organization [facility] Address [address] [place] [address] Care Team Providers Care Hydraulic Operator Name Role Phone ST [facility] Neurologist MICKY ZAIDI Heater Room Helper Assessment Encounter Date Assessment Date Assessment LastModified by Organization Details LastModified Time 12/22/2017 12/22/2017 continue all meds as prescribed. repeat wellness exam in 1 year. [email or web address] Not available 12/25/2017 20:16:06 04/16/2018 04/16/2018 will call with results. refer as indicated. continue meds as prescribed. [email or web address] Not available 04/22/2018 11:12:29 05/25/2018 05/25/2018 benign vertigo, discussed importance of safety and fall reduction until symptoms resolve. meclizine as prescribed. f/u as needed for ongoing or worsening symptoms. [email or web address] Not available 05/25/2018 21:52:34 06/19/2018 06/19/2018 tolerated injections. complete meds as prescribed. [email or web address] Not available 07/12/2018 21:57:32 Plan of Treatment Reminders Order Date Submit Date Provider Last Modified By Organization Details Last Modified Time Details Appointments None recorded. Lab HbA1c (hemoglobi n A1c), blood 2017 018 SHARIF [facility], [address], [address], [place], [address], 8 08:53:52 CMP, serum or plasma 2017 018 SHARIF [facility], [address], [place] [address], [place], [address], 8 08:53:50 hepatic function panel, serum 2017 018 SHARIF [facility], [address], [place] [address], [place], [address], 8 08:53:51 Referral medical nutrition therapy referral 2017 018 Not available 8 13:46:12 Procedures colonoscop y screening (PROC) 2017 018 SHARIF Velez MD, [address] [facility], [place] [place] [address], [place], [address], 8 09:39:52 Surgeries None recorded. Imaging MAMMO, screening, digital, bilateral 2017 018 SHARIF [facility] (Centralized Scheduling), [address] [facility] , [place], [address], 8 05:01:09 Medication Orders nystatin 100,000 unit/mL oral suspension 2017 018 [facility]FACE [facility] [id number], [address] [facility] , [place], [address], 8 13:21:37 cyanocobal dangelo (vit B-12) 1,000 mcg/mL injection solution 2017 018 [email or web address] Not available 8 23:45:16 meclizine 25 mg tablet 2017 018 INTERFACE [facility] [id number], [address] [facility] , [place], [address], 8 16:02:54 cyanocobal dangelo (vit B-12) 1,000 mcg/mL injection solution 2017 018 [email or web address] Not available 8 17:12:55 Patient Targets Encounter Date Encounter Id Patient Goals Patient Target Last Modified By Organization Details Last Modified Time 04/30/2018 [id number] 1) Encouraged to follow the meal plan. Encouraged to read food labels, use measuring cups and plan ahead. 2) Encouraged proper hydration. Strongly encouraged to increase water. 3) Consider keeping food and blood sugar log. 4) Follow up with RD in 2-4 weeks. Nutrition Prescription: Recommended 45-60g carbohydrates at meals and 15-30g carbohydrates at snacks. Discussed the importance of consistency with timing of meals and amount of carbohydrates. Encouraged to also include lean protein and non-starchy vegetables. Not available 04/30/2018 13:44:43 Patient Instructions Encounter Date Encounter Id Patient Instructions Last Modified By Organization Details Last Modified Time 04/30/2018 [id number] medical nutritio n therapy* Not available 04/30/2018 13:46:15 Encouraged to call or follow up with any questions/concern s. Not available 04/30/2018 13:45:17 Reason for Referral Medical Nutrition Therapy Cielo perez for Diet education Referring Physician: Karina Beach, Family Medicine, Encounter Date: 12/22/2017 Results Created Date Observation Date Name Description Value Unit Range Abnormal Flag Note LastModifiedBy Organization Detail LastModifiedTime 12/09/19 18 12/08/2017 urina lysis , dipst ick Leukocytes Trace Not Available [address] [place], [address], 12/08/2017 12:55:12/09/19 18 12/08/2017 urina lysis , dipst ick Nitrite negati ve Not Available [address] [place], [address], 12/08/2017 12:55:12/09/19 18 12/08/2017 urina lysis , dipst ick Urobilinogen .2 Not Available [facility] [address] [place], [place] [address] [place], [address], 12/08/2017 12:55:09 12/09/19 18 12/08/2017 urina lysis , dipst ick Protein Negati ve Not Available [address] [place], [address], 12/08/2017 12:55:09 12/09/19 18 12/08/2017 urina lysis , dipst ick pH 5.5 Not Available [address] [place], [address], 12/08/2017 12:55:09 12/09/19 18 12/08/2017 urina lysis , dipst ick Blood Negati ve Not Available [address] [place], [address], 12/08/2017 12:55:12/09/19 18 12/08/2017 urina lysis , dipst ick Specific [place] 1.020 Not Available [address] [place], [address], 12/08/2017 12:55:12/09/19 18 12/08/2017 urina lysis , dipst ick Ketone Negati ve Not Available [address] [place], [address], 12/08/2017 12:55:12/09/19 18 12/08/2017 urina lysis , dipst ick Bilirubin Negati ve Not Available [address] [place], [address], 12/08/2017 12:55:12/09/19 18 12/08/2017 urina lysis , dipst ick Glucose Negati ve Not Available [address] [place], [address], 12/08/2017 12:55:09 12/09/19 18 12/08/2017 urina lysis , dipst ick Appearance Cloudy Not Available [facility] [address] [place], [address], 12/08/2017 12:55:09 12/09/19 18 12/08/2017 urina lysis , dipst ick Color Yellow Not Available [facility] [address] [place], [address], 12/08/2017 12:55:09 12/09/19 18 12/09/2017 micro album in, urine albumin, urine <3.0 ug/mL not estab. Not Available [facility] ([facility]) [address] [facility], [place], [address], 12/11/2017 06:06:41 12/09/19 18 12/11/2017 cultu re, urine urine culture, routine Final report Not Available [facility] ([facility]) [address] [place], [address], 12/11/2017 06:06:42 12/09/19 18 12/11/2017 cultu re, urine result 1 Commen t Mixed uroge nital brissa 10,00 0-25, 000 colon y formi ng units per mL Not Available [facility] ([facility]) [address] [place], [address], 12/11/2017 06:06:42 12/09/19 18 12/08/2017 HbA1c (hemo globi n A1c), blood HbA1c 6.5 Not Available [facility] [address] [place], [address], 12/08/2017 12:03:35 04/16/20 18 04/17/2018 CMP, serum or plasm a glucose 137 mg/dL 65-99 above high normal Not Available [facility] ([facility]) [address] [place], [address], 04/17/2018 08:53:50 04/16/20 18 04/17/2018 CMP, serum or plasm a BUN 15 mg/dL 6-24 Not Available [facility] ([facility]) [address] [facility] [place], [address], 04/17/2018 08:53:50 04/16/20 18 04/17/2018 CMP, serum or plasm a creatinine 1.31 mg/dL 0.57-1 .00 above high normal Not Available [facility] ([facility]) [address] [facility] [place], [address], 04/17/2018 08:53:50 04/16/20 18 04/17/2018 CMP, serum or plasm a eGFR if nonafricn AM 45 mL/mi n/1.7 3 >59 below low normal Not Available [facility] ([facility]) [address] [place], [address], 04/17/2018 08:53:50 04/16/20 18 04/17/2018 CMP, serum or plasm a eGFR if africn AM 52 mL/mi n/1.7 3 >59 below low normal Not Available [facility] ([facility]) [address] [place], [address], 04/17/2018 08:53:50 04/16/20 18 04/17/2018 CMP, serum or plasm a BUN/creatini ne ratio 11 9-23 Not Available [facility] ([facility]) [address] [facility] [place], [address], 04/17/2018 08:53:50 04/16/20 18 04/17/2018 CMP, serum or plasm a sodium 138 mmol/ L 134-14 4 Not Available [facility] ([facility]) [address] [place], [address], 04/17/2018 08:53:50 04/16/20 18 04/17/2018 CMP, serum or plasm a potassium 4.7 mmol/ L 3.5-5. 2 Not Available [facility] ([facility]) [address] [facility] [place], [address], 04/17/2018 08:53:50 04/16/20 18 04/17/2018 CMP, serum or plasm a chloride 96 mmol/ L 96-106 Not Available [facility] ([facility]) [address] [facility] [place], [address], 04/17/2018 08:53:50 04/16/20 18 04/17/2018 CMP, serum or plasm a carbon dioxide, total 24 mmol/ L 20-29 Not Available [facility] ([facility]) [address] [facility] [place], [address], 04/17/2018 08:53:50 04/16/20 18 04/17/2018 CMP, serum or plasm a calcium 9.6 mg/dL 8.7-10 .2 Not Available [facility] ([facility]) [address] [facility] [place], [address], 04/17/2018 08:53:50 04/16/20 18 04/17/2018 CMP, serum or plasm a protein, total 7.3 g/dL 6.0-8. 5 Not Available [facility] ([facility]) [address] [facility] [place], [address], 04/17/2018 08:53:50 04/16/20 18 04/17/2018 CMP, serum or plasm a albumin 4.2 g/dL 3.5-5. 5 Not Available [facility] ([facility]) [address] [facility] [place], [address], 04/17/2018 08:53:50 04/16/20 18 04/17/2018 CMP, serum or plasm a globulin, total 3.1 g/dL 1.5-4. 5 Not Available [facility] ([facility]) [address] [facility] [place], [address], 04/17/2018 08:53:50 04/16/20 18 04/17/2018 CMP, serum or plasm a A/G ratio 1.4 1.2-2. 2 Not Available [facility] ([facility]) [address] [facility] [place], [address], 04/17/2018 08:53:50 04/16/20 18 04/17/2018 CMP, serum or plasm a bilirubin, total <0.2 mg/dL 0.0-1. 2 Not Available [facility] ([facility]) [address] [facility] [place], [address], 04/17/2018 08:53:50 04/16/20 18 04/17/2018 CMP, serum or plasm a alkaline phosphatase 106 IU/L 39-117 Not Available [facility] ([facility]) [address] [facility] [place], [address], 04/17/2018 08:53:50 04/16/20 18 04/17/2018 CMP, serum or plasm a AST (SGOT) 17 IU/L 0-40 Not Available [facility] ([facility]) [address] [facility] [place], [address], 04/17/2018 08:53:50 04/16/20 18 04/17/2018 CMP, serum or plasm a ALT (SGPT) 15 IU/L 0-32 Not Available [facility] ([facility]) [address] [facility] [place], [address], 04/17/2018 08:53:50 04/16/20 18 04/17/2018 hepat ic funct ion panel , serum bilirubin, direct 0.06 mg/dL 0.00-0 .40 Not Available [facility] ([facility]) [address] [facility] [place], [address], 04/17/2018 08:53:51 04/16/20 18 04/17/2018 HbA1c (hemo globi n A1c), blood hemoglobin A1C 8.0 % 4.8-5. 6 above high normal Predi abete s: 5.7 - 6.4 Diabe jaison: >6.4 Glyce antonia contr ol for adult s with diabe jaison: <7.0 Not Available [facility] ([facility]) [address], [place], [address], 04/17/2018 08:53:52 01/06/20 18 01/05/2018 US, kidne y No observ ation record ed. [email or web address] [facility] (Imaging) [address], [place], [address], 01/05/2018 12:56:56 09/03/1904/10/2018 CT, chest , w/o contr ast No observ ation record ed. BARCODE Not Available 2018 13:40:00 Result Notes None recorded. Problems Name Problem SNOMED Code Status Onset Date Resolution Date Notes Provider Name and Address Organization Details Recorded Time Irritable bowel syndrome 68271983 Active 2016 Xiang Snedegar null, [place] - [facility] 7 14:42:52 Hypertensiv e disorder 37885448 Active 2016 Xiang Snedegar [place], [place] - [facility] 7 14:42:56 Gastroesoph ageal reflux disease 686636677 Active 2016 Xiang Snedegar [place], [place] - [facility] 7 14:43:00 Restless legs syndrome 71026351 Active 2016 Xiang Snedegar [place], [place] - [facility] 7 14:43:08 Hyperlipide teddy 10523600 Active 2016 Xiang Snedegar [place], [place] - [facility] 7 14:43:13 Pain in bilateral legs 8610649764864 9108 Active 2016 Karina Beach APRN [address], [place], [address], [place] - [facility] 7 12:56:05 Type 2 diabetes mellitus 44053638 Active 2017 Karina Beach APRN [address], [place], [address], [place] - [facility] 8 09:23:31 Chronic kidney disease stage 3 193885654 Active 2017 stage 3b Karina Beach APRN [address], [place], [address], [facility] 8 11:59:11 Diverticula r disease of colon 657637171 Active 2017 Karina Beach APRN [address], [place], [address], [facility] 8 10:04:55 Problem Notes None recorded. Procedures Surgical History Date Name Laterality Status Provider Name and Address Organization Details Recorded Time 8 Advance Care Planning completed Xiang Snedegar [facility] 12/22/2017 10:15:18 Cardiac Surgery completed Xiang Snedegar [facility] 05/19/2017 14:46:25 tonsilectomy/ad enoids completed Xiang Snedegar [facility] [place] 05/19/2017 14:46:51 Endometrial Ablation completed Xiang Snedegar [facility] 05/19/2017 14:47:26 Imaging Results None recorded. Procedure Notes None recorded. Medical Equipment None Reported. Allergies Allergen ID Allergen Name Allergen Category Reaction Reaction Severity Criticality Documentation Date Start Date Code Code System Note Provider Name and Address Organization Details Recorded Time 37290 atorvasta tin calcium medicatio n myalgias (muscle pain) Not available Not available 06/07/20162013 17659 RxNorm React ion: muscl e pain; Not Available [facility] 6 09:08:49 38457 lisinopri l medicatio n cough Not available Not available 06/07/20162009 37399 RxNorm React ion: cough ; Not Available [facility] 6 09:08:50 Medications Name Sig Start Date Stop Date Status Note LastModified by Organization Details LastModified Time cyclobenz aprine 10 mg tablet 06/19 completed Not Available Not Available Not Available amoxicill in 500 mg capsule take 1 capsule (500 mg) by oral route 3 times per day 06/24 completed amoxicil nancy 500 mg oral capsule; Recorded Status: Recorded on: 12/27/19 12 11:34AM; Disconti nued Status: Disconti nued on: 06/24/20 12 7:34AM;U ser: meyerst; Indicati on: abscesse d tooth - (522.5); Printed: 12/27/19 12 Not Available Not Available Not Available furosemid e 40 mg tablet Take 1 tablet every day by oral route as directed for 30 days. active Not Available Not Available No t Available metformin 500 mg tablet TAKE 1 TABLET BY MOUTH 2 TIMES A DAY WITH MORNING AND EVENING MEALS 10/23 completed Not Available Not Available Not Available Levsin 0.125 mg tablet take 1 tablet (0.125 mg) by oral route 4 times per day prn stomach symptoms 09/13 completed Levsin 0.125 mg oral tablet;R ecorded Status: Recorded on: 09/13/19 15 1:24PM;D iscontin ued Status: Disconti nued on: 09/13/19 15 3:22PM;U ser: [email or web address] ;Est. Completi on: 03/12/20 15;Indic ation: Irritabl e Bowel Syndrome - (5641 00);Prin sana: 09/13/19 15 Not Available Not Available Not Available carvedilo l 25 mg tablet Take 1 tablet twice a day by oral route as directed for 30 days. active Not Available Not Available No t Available nystatin 100,000 unit/mL oral suspensio n Take 5 mL 4 times a day by oral route for 7 days. 2017 active Not Available Not Available Not Avai lable carvedilo l 6.25 mg tablet take 1 tablet (6.25 mg) by oral route 2 times per day with food 05/19 completed Not Available Not Available Not Available Protonix 40 mg tablet,de layed release take 1 tablet (40 mg) by oral route once daily 05/19 completed Protonix 40 mg oral tablet,d elayed release (/EC); Recorded Status: Recorded on: 03/17/20 14 2:47PM;U ser: glascock r;Indica tion: Gastroes ophageal Reflux - (5308 10) Not Available Not Available Not Available atorvasta tin 20 mg tablet take 1 tablet (20 mg) by oral route once daily 04/26 completed atorvast atin 20 mg oral tablet;R ecorded Status: Recorded on: 03/17/20 14 2:47PM;D iscontin ued Status: Disconti nued on: 04/26/20 14 10:32AM; User: tiffani de Not Available Not Available Not Available ropinirol e 1 mg tablet Take 1 tablet every day by oral route as directed for 30 days. active Not Available Not Available No t Available atorvasta tin 10 mg tablet take 1 tablet (10 mg) by oral route once daily at bedtime for 30 days 09/15 completed atorvast atin 10 mg oral tablet;c omment: myalgias ;Recorde d Status: Recorded on: 05/04/20 14 7:58PM;D iscontin ued Status: Disconti nued on: 09/15/19 16 9:50AM;U ser: prakash EspinoEst. Completi on: 11/01/19 15;Indic ation: Hypercho lesterol emia - ();Prin sana: 05/04/20 14 Not Available Not Available Not Available IBU 800 mg tablet Take 1 tablet every 6-8 hours by oral route as needed. active Not Available Not Available No t Available ampicilli n 500 mg capsule take 1 capsule (500 mg) by oral route every 6 hours for 10 days 1/2 hour before a meal or 2 hours after a meal 01/17 completed ampicill in 500 mg oral capsule; Prescrib e Status: Prescrib ed on: 09/18/19 16 12:17PM; Disconti nued Status: Disconti nued on: 01/18/20 16 12:59PM; User: prakash EspinoEstSophie Completi on: 09/28/19 16;Pharm acyVerif ied: 09/18/19 16 12:17PM Not Available Not Available Not Available promethaz ine 12.5 mg tablet take 1-2 tablets by oral route As needed for 30 days 10/16 completed prometha zine 12.5 mg oral tablet;R ecorded Status: Recorded on: 10/24/19 11 10:32AM; Disconti nued Status: Disconti nued on: 10/16/19 12 9:38AM;U ser: vesth;Es t. Completi on: 11/24/19 11;Indic ation: Nausea and Vomiting - (16.7870 10) Not Available Not Available Not Available prednison e 20 mg tablet take 1 tablet (20 mg) by oral route 3 times per day for 5 days 05/19 completed Not Available Not Available Not Available isosorbid e mononitra te ER 30 mg tablet,ex tended release 24 hr 05/19 completed Not Available Not Available Not Available ropinirol e 3 mg tablet Take 1 tablet every day by oral route as directed for 30 days. 06/28 completed made her sick Not Available Not Available Not Available Flonase 50 mcg/actua tion nasal spray,teresa pension 1 spray each nostril daily 10/23 completed Flonase 50 mcg/actu ation nasal spray,maddox spension ;Recorde d Status: Recorded on: 08/02/20 13 3:36PM;U ser: [email or web address] Not Available Not Available Not Available Alesse (28) 0.1 mg-20 mcg tablet take 1 tablet by oral route once daily for 28 days 03/02 completed Alesse (28) 0.1-20 mg-mcg oral tablet;R ecorded Status: Recorded on: 07/20/20 09 4:41PM;D iscontin ued Status: Disconti nued on: 03/02/20 13 3:50PM;U ser: [email or web address] ;Est. Completi on: 01/05/20 10;Print ed: 07/20/20 09 Not Available Not Available Not Available clopidogr el 75 mg tablet take 1 tablet (75 mg) by oral route once daily active Not Available Not Available No t Available sulfameth oxazole 800 mg-trimet hoprim 160 mg tablet take 1 tablet by oral route every 12 hours for 10 days 05/25 completed Not Available Not Available Not Available omeprazol e 40 mg capsule,d elayed release Take 1 capsule every day by oral route as directed for 30 days. active Not Available Not Available No t Available metoprolo l tartrate 50 mg-hydroc hlorothia zide 25 mg tablet take 1 tablet by oral route once daily for 30 days 12/26 completed metoprol ol ta-hydro chloroth iaz 50-25 mg oral tablet;R ecorded Status: Recorded on: 10/17/19 12 1:47PM;D iscontin ued Status: Disconti nued on: 12/27/19 12 11:34AM; User: bindu;Shyla Montana on: 01/15/20 12 Not Available Not Available Not Available lovastati n 10 mg tablet 06/19 completed Not Available Not Available Not Available aspirin 81 mg tablet,de layed release take 1 tablet (81 mg) by oral route once daily active Not Available Not Available No t Available tramadol 50 mg tablet take 1 tablet (50 mg) by oral route every 6 hours as needed 03/02 completed tramadol 50 mg oral tablet;R ecorded Status: Recorded on: 06/23/20 12 2:42PM;D iscontin ued Status: Disconti nued on: 03/02/20 13 3:50PM;U ser: markesbe ryh;Ana Rosa cation: Lumbago - (724.2); Printed: 06/23/20 12 Not Available Not Available Not Available spironola ctone 25 mg tablet Take 1 tablet every day by oral route as directed for 15 days. active Not Available Not Available No t Available levothyro xine 25 mcg tablet take 1 tablet (25 mcg) by oral route once daily for 30 days 03/02 completed levothyr oxine 25 mcg oral tablet;R ecorded Status: Recorded on: 09/18/19 10 5:28PM;D iscontin ued Status: Disconti nued on: 03/02/20 13 3:50PM;U ser: estepl;E st. Completi on: 10/18/19 10;Indic ation: Hypothyr oidism - () Not Available Not Available Not Available isosorbid e mononitra te ER 120 mg tablet,ex tended release 24 hr Take 1 tablet every day by oral route as directed for 30 days. active Not Available Not Available No t Available Bentyl 20 mg tablet take 1-2 tablets (20-40 mg) by oral route 4 times per day 09/15 completed Bentyl 20 mg oral tablet;P rescribe Status: Prescrib ed on: 10/11/19 15 10:32AM; Disconti nued Status: Disconti nued on: 09/15/19 16 9:15AM;U ser: guttmann ;Est. Completi on: 04/09/20 15;Pharm acyVerif ied: 10/11/19 15 10:32AM Not Available Not Available Not Available Macrobid 100 mg capsule take 1 capsule (100 mg) by oral route 2 times a day for 7 days 10/16 completed Macrobid 100 mg oral capsule; Recorded Status: Recorded on: 07/20/20 10 11:07AM; Disconti nued Status: Disconti nued on: 10/16/19 12 9:38AM;U ser: gored;Es t. Completi on: 07/27/20 10;Print ed: 07/20/20 10 Not Available Not Available Not Available nortripty line 25 mg capsule Take 1 capsule twice a day by oral route as directed . active Not Available Not Available No t Available Mobic 15 mg tablet take 1 tablet (15 mg) by oral route once daily for 30 days 09/16 completed Mobic 15 mg oral tablet;P rescribe Status: Prescrib ed on: 08/02/20 13 11:51PM; Disconti nued Status: Disconti nued on: 09/16/19 14 8:36AM;U ser: guttmann ;Est. Completi on: 01/30/20 14;Indic ation: Osteoart hritis - (13.7159 00);Phar macyVeri fied: 08/02/20 13 11:51PM Not Available Not Available Not Available Zofran 4 mg tablet take 1 tablet by oral route daily as needed 11/16 completed Zofran (as hydrochl oride) 4 mg oral tablet;R ecorded Status: Recorded on: 04/26/20 14 10:32AM; Disconti nued Status: Disconti nued on: 11/17/19 15 5:06PM;U ser: glascock r Not Available Not Available Not Available losartan 100 mg-hydroc hlorothia zide 25 mg tablet take 1 tablet by oral route once daily for 30 days 04/02 completed losartan -hydroch lorothia zide 100-25 mg oral tablet;R ecorded Status: Recorded on: 08/21/20 12 11:02AM; Disconti nued Status: Disconti nued on: 04/02/20 13 11:14AM; User: oscar shah;Est. Completi on: 10/20/19 13 Not Available Not Available Not Available isosorbid e mononitra te ER 60 mg tablet,ex tended release 24 hr Take 1 tablet every day by oral route as directed for 30 days. active Not Available Not Available No t Available ofloxacin 0.3 % ear drops INSTILL 3 DROPS (1.5 MG) INTO AFFECTED EAR(S) BY OTIC ROUTE 3 TIMES PER DAY 10/23 completed Not Available Not Available Not Available Zofran 8 mg tablet take 1 tablet (8 mg) by oral route 3 times per day prn n/v 09/25 completed Zofran (as hydrochl oride) 8 mg oral tablet;P rescribe Status: Prescrib ed on: 09/18/19 16 11:15AM; User: prakash EspinoEstSophie Completi on: 09/25/19 16;Pharm acyVerif ied: 09/18/19 16 11:15AM Not Available Not Available Not Available amoxicill in 875 mg tablet take 1 tablet (875 mg) by oral route every 12 hours for 10 days 05/08 completed amoxicil nancy 875 mg oral tablet;R ecorded Status: Recorded on: 10/19/19 10 1:18PM;D iscontin ued Status: Disconti nued on: 05/08/20 10 4:46PM;U ser: benjiw; Est. Completi on: 10/29/19 10;Indic ation: Acute Bacteria l Sinusiti s - (46);Prin sana: 10/19/19 10 Not Available Not Available Not Available Zoloft 50 mg tablet take 1 tablet (50 mg) by oral route daily for 30 days 12/26 completed Zoloft 50 mg oral tablet;R ecorded Status: Recorded on: 07/20/20 10 11:07AM; Disconti nued Status: Disconti nued on: 12/27/19 12 11:08AM; User: [email or web address];Shyla [place] on: 11/18/19 11;Print ed: 07/20/20 10 Not Available Not Available Not Available Celexa 20 mg tablet take 1 tablet (20 mg) by oral route once daily for 30 days 03/02 completed Celexa 20 mg oral tablet;R ecorded Status: Recorded on: 10/17/19 12 1:47PM;D iscontin ued Status: Disconti nued on: 03/02/20 13 3:50PM;U ser: blumc;Shyla Gutiérrezi on: 01/15/20 12 Not Available Not Available Not Available Parafon Forte DSC 500 mg tablet take 1 tablet (500 mg) by oral route 4 times per day prn 09/16 completed Parafon Forte DSC 500 mg oral tablet;P rescribe Status: Prescrib ed on: 08/02/20 13 11:52PM; Disconti nued Status: Disconti nued on: 09/16/19 14 8:36AM;U ser: guttmann ;Est. Completi on: 12/01/19 14;Indic ation: Muscle Spasm - (.6179 50);Phar Mirta fied: 08/02/20 13 11:52PM Not Available Not Available Not Available meclizine 25 mg tablet take 1 tablet (25 mg) by oral route 4 times per day as needed for dizzines s for 7 days 2017 active Not Available Not Available Not Avai lable paroxetin e 20 mg tablet take 1/2 tablet (10 mg) by oral route once daily for 6 days, then increase to 1 tablet po qd 06/08 completed paroxeti ne HCl 20 mg oral tablet;R ecorded Status: Recorded on: 12/11/19 14 9:52AM;U ser: guttmann ;Est. Completi on: 06/08/20 14;Indic ation: Generali zed Anxiety Disorder - ();Prin sana: 12/11/19 14 Not Available Not Available Not Available cyanocoba henok (vit B-12) 1,000 mcg/mL injection solution Inject 1 mL every month by intramus cular route. 2017 active Not Available Not Available Not Avai lable ferrous sulfate 325 mg (65 mg iron) tablet take 1 tablet (325 mg) by oral route BID 03/02 completed ferrous sulfate 325 mg (65 mg iron) oral tablet;R ecorded Status: Recorded on: 10/23/19 12 5:33PM;D iscontin ued Status: Disconti nued on: 03/02/20 13 3:50PM;U ser: blumc;Es t. Completi on: 12/22/19 12 Not Available Not Available Not Available Cipro 500 mg tablet take 1 tablet (500 mg) by oral route every 12 hours for 7 days 09/15 completed Cipro 500 mg oral tablet;P rescribe Status: Prescrib ed on: 08/11/20 15 10:39AM; Disconti nued Status: Disconti nued on: 09/15/19 16 9:15AM;U ser: guttmann ;Est. Completi on: 08/18/20 15;Indic ation: Bacteria l Urinary Tract Infectio n - (10.5990 04);Phar Seraeri fied: 08/11/20 15 10:39AM Not Available Not Available Not Available Norvasc 5 mg tablet take 1 tablet (5 mg) by oral route once daily 03/02 completed Norvasc 5 mg oral tablet;R ecorded Status: Recorded on: 12/27/19 12 11:34AM; Disconti nued Status: Disconti nued on: 03/02/20 13 3:50PM;U ser: meyerst; Indicati on: Hyperten ismael - (4019 );Prin sana: 12/27/19 12 Not Available Not Available Not Available Robaxin-7 50 750 mg tablet take 1 tablet (750 mg) by oral route every 6 hours prn 05/17 completed Robaxin- 750 750 mg oral tablet;P rescribe Status: Prescrib ed on: 03/02/20 13 4:34PM;D iscontin ued Status: Disconti nued on: 05/17/20 13 2:05PM;U ser: prakash ;Est. Completi on: 04/01/20 13;Indic ation: Muscle Spasm - (13.7288 50);Phar Mirta fied: 03/02/20 13 4:34PM Not Available Not Available Not Available lisinopri l 10 mg tablet take 1 tablet (10 mg) by oral route once daily 04/26 completed lisinopr il 10 mg oral tablet;R ecorded Status: Recorded on: 03/17/20 14 2:47PM;D iscontin ued Status: Disconti nued on: 04/26/20 14 10:32AM; User: tiffani de;Indica tion: Hyperten ismael - (07.4019 00) Not Available Not Available Not Available Pravachol 20 mg tablet take 1 tablet (20 mg) by oral route once daily at bedtime for 30 days 04/02 completed Pravacho l 20 mg oral tablet;R ecorded Status: Recorded on: 10/23/19 12 5:30PM;D iscontin ued Status: Disconti nued on: 04/02/20 13 11:14AM; User: Petra t. Completi on: 01/21/20 12 Not Available Not Available Not Available promethaz ine 25 mg tablet take 1 tablet (25 mg) by oral route every 4-6 hours as needed 05/19 completed prometha zine 25 mg oral tablet;R ecorded Status: Recorded on: 08/11/20 15 10:09AM; User: aleksandr diaz Not Available Not Available Not Available Advair Diskus 250 mcg-50 mcg/dose powder for inhalatio n active Not Available Not Available Not Available gabapenti n 300 mg capsule take 1 capsule (300 mg) by oral route qpm for 3 days, then 1 cap po bid for 3 days, then 1 cap po 3 times per day 09/05 completed gabapent in 300 mg oral capsule; Recorded Status: Recorded on: 06/21/20 14 1:18PM;D iscontin ued Status: Disconti nued on: 09/05/19 15 11:34AM; User: prakash [place] on: 12/19/19 15;Print ed: 06/21/20 14 Not Available Not Available Not Available triamtere ne 37.5 mg-hydroc hlorothia zide 25 mg tablet 05/19 completed Not Available Not Available Not Available omeprazol e 20 mg capsule,d elayed release 05/19 completed Not Available Not Available Not Available diclofena c sodium 75 mg tablet,de layed release take 1 tablet (75 mg) by oral route 2 times per day with food 05/17 completed diclofen ac sodium 75 mg oral tablet,d elayed release (/KATJA); Prescrib e Status: Prescrib ed on: 03/02/20 13 4:34PM;D iscontin ued Status: Disconti nued on: 05/17/20 13 2:05PM;U ser: prakash Meza Completi on: 04/01/20 13;Pharm acyVerif ied: 03/02/20 13 4:34PM Not Available Not Available Not Available lisinopri l 5 mg tablet take 1 tablet (5 mg) by oral route once daily for 30 days 10/19 completed lisinopr il 5 mg oral tablet;R ecorded Status: Recorded on: 09/18/19 10 5:28PM;D iscontin ued Status: Disconti nued on: 10/19/19 10 1:18PM;U ser: estepl;E st. Completi on: 10/18/19 10;Indic ation: Hyperten ismael - (07.4019 00) Not Available Not Available Not Available gabapenti n 100 mg capsule take 1-2 capsules (100-200 mg) by oral route 3 times per day 12/22 completed gabapent in 100 mg oral capsule; Recorded Status: Recorded on: 12/06/19 16 5:49PM;U ser: glascock r;Est. Completi on: 06/03/20 16;Print ed: 12/06/19 16 Not Available Not Available Not Available Nasonex 50 mcg/actua tion [place] inhale 1 spray by nasal route 2 times a day 05/19 completed Nasonex 50 mcg/actu ation nasal spray,no n-aeroso l;Record ed Status: Recorded on: 03/17/20 14 2:47PM;U ser: glascock r;Indica tion: Allergic Rhinitis - (08.8216 00) Not Available Not Available Not Available lovastati n 20 mg tablet Take 1 tablet every day by oral route as directed for 30 days. active Not Available Not Available No t Available methylpre dnisolone 4 mg tablets in a dose pack 05/19 completed Not Available Not Available Not Available ferrous sulfate 325 mg (65 mg iron) tablet,de layed release take 1 tablet (325 mg) by oral route 2-3 times per day 12/26 completed ferrous sulfate 325 mg (65 mg iron) oral tablet,d elayed release (/EC); Recorded Status: Recorded on: 07/20/20 09 4:41PM;D iscontin ued Status: Disconti nued on: 12/27/19 12 11:08AM; User: prakash ;EstSophie Completi on: 01/17/20 10;Indic ation: Iron Deficien cy Anemia - (2822 00);Prin sana: 07/20/20 09 Not Available Not Available Not Available Rueter 5 mg-325 mg tablet take 1 tablet by oral route every 4 hours as needed for pain 11/16 completed Rueter 5-325 mg oral tablet;R ecorded Status: Recorded on: 06/30/20 14 2:30PM;D iscontin ued Status: Disconti nued on: 11/17/19 15 5:06PM;U ser: glascock r;Indica tion: Pain - (16.8184 00) Not Available Not Available Not Available dicyclomi ne 10 mg capsule Take 1 capsule every day by oral route as directed . 10/23 completed Not Available Not Available Not Available naproxen 500 mg tablet take 1 tablet by oral route BID with food 05/19 completed Not Available Not Available Not Available spironola ctone 50 mg tablet Take 1 tablet every day by oral route as directed for 30 days. 10/23 completed Not Available Not Available Not Available Lodrane 6 mg-45 mg tablet,ex tended release take 1-2 tablet by oral route every 12 hours as needed 10/19 completed Lodrane 6-45 mg oral tablet extended release 12 hr;Recor ded Status: Recorded on: 09/26/19 10 1:26PM;D iscontin ued Status: Disconti nued on: 10/19/19 10 1:16PM;U ser: rankinw; Est. Completi on: 10/06/19 10;Print ed: 09/26/19 10 Not Available Not Available Not Available Sprintec (28) 0.25 mg-0.035 mg tablet take 1 tablet by oral route once daily 07/20 completed Sprintec (28) 0.25-35 mg-mcg oral tablet;R ecorded Status: Recorded on: 07/20/20 09 4:17PM;D iscontin ued Status: Disconti nued on: 07/20/20 09 4:41PM;U ser: estepl;I ndicatio n: Pregnanc y Contrace ption - (18.V259 00) Not Available Not Available Not Available Flexeril 5 mg tablet take 1 tablet (5 mg) by oral route 8hours prn 03/02 completed Flexeril 5 mg oral tablet;R ecorded Status: Recorded on: 05/08/20 10 4:46PM;D iscontin ued Status: Disconti nued on: 03/02/20 13 3:50PM;U ser: vesth Not Available Not Available Not Available Crestor 40 mg tablet take 1 tablet (40 mg) by oral route once daily 03/30 completed Crestor 40 mg oral tablet;R ecorded Status: Recorded on: 11/17/19 15 5:02PM;D iscontin ued Status: Disconti nued on: 03/30/20 15 2:41PM;U ser: stearsb Not Available Not Available Not Available Cymbalta 60 mg capsule,d elayed release take 1 capsule (60 mg) by oral route once daily for 30 days 09/20 completed Cymbalta 60 mg oral capsule, delayed release( /EC);c omment: dizzy and nauseate d;Record ed Status: Recorded on: 09/16/19 14 8:51AM;D iscontin ued Status: Disconti nued on: 09/20/19 14 5:48PM;U ser: prakash ;Est. Completi on: 03/15/20 14;Indic ation: Major Depressi ve Disorder - (053068 00);Prin sana: 09/16/19 14 Not Available Not Available Not Available fluocinon kushal 0.1 % topical cream 12/22 completed Not Available Not Available Not Available Vicodin one po q 4 to 6 hours prn pain 05/17 completed Vicodin 5-500 mg Oral tablet;R ecorded Status: Recorded on: 02/18/20 13 11:58AM; Disconti nued Status: Disconti nued on: 05/17/20 13 2:05PM;U ser: gored;Shyla tSophie Completi on: 02/28/20 13;Indic ation: - (-5) Not Available Not Available Not Available Keflex 1 bid 10/16 completed keflex 500mg;Re corded Status: Recorded on: 11/20/19 11 4:01PM;D iscontin ued Status: Disconti nued on: 10/16/19 12 9:38AM;U ser: oscar shah;Est. Completi on: 11/30/19 11;Indic ation: - (-5);Fiona nted: 11/20/19 11 Not Available Not Available Not Available Phenergan DM 1 tsp qid 07/20 completed phenerga n dm;Recor ded Status: Recorded on: 12/07/19 09 1:54PM;D iscontin ued Status: Disconti nued on: 07/20/20 09 4:16PM;U ser: oscar shah;Est. Completi on: 12/17/19 09;Indic ation: - (-5);Fiona nted: 12/07/19 09 Not Available Not Available Not Available Indocin 1 tid with food 03/02 completed indocin 50mg;Rec orded Status: Recorded on: 06/23/20 12 2:42PM;D iscontin ued Status: Disconti nued on: 03/02/20 13 3:50PM;U ser: oscar shah;Est. Completi on: 07/07/20 12;Indic ation: - (-5);Fiona nted: 06/23/20 12 Not Available Not Available Not Available Mucinex D 1 bid 10/16 completed mucinex d;Record ed Status: Recorded on: 11/20/19 11 4:01PM;D iscontin ued Status: Disconti nued on: 10/16/19 12 9:39AM;U ser: oscar shah;Est. Completi on: 11/30/19 11;Indic ation: - (-5);Fiona nted: 11/20/19 11 Not Available Not Available Not Available Ranexa 500 mg tablet,ex tended release Take 1 tablet twice a day by oral route as directed . 10/23 completed Not Available Not Available Not Available ProAir HFA 90 mcg/actua tion aerosol inhaler inhale 1 - 2 puffs (90 - 180 mcg) by inhalati on route every 6 hours as needed active Not Available Not Available No t Available hydrochlo rothiazid e 12.5 mg tablet take 1 tablet (12.5 mg) by oral route once daily for 30 days 02/16 completed hydrochl orothiaz kushal 12.5 mg oral tablet;P rescribe Status: Prescrib ed on: 01/18/20 16 1:16PM;U ser: prakash ;Est. Completi on: 02/17/20 16;Pharm acyVerif ied: 01/18/20 16 1:16PM Not Available Not Available Not Available Symbicort 160 mcg-4.5 mcg/actua tion HFA aerosol inhaler inhale 2 puffs by inhalati on route 2 times per day in the morning and evening 2015 active Symbicor t 160-4.5 mcg/actu ation inhalati on HFA aerosol inhaler; Prescrib e Status: Prescrib ed on: 01/25/20 16 1:46PM;U ser: marcin ;Pharmac yVerifie d: 01/25/20 16 1:46PM Not Available Not Available Not Available Symbicort 1 inhalati on bid 03/17 completed Symbicor t Inhalati on;Recor ded Status: Recorded on: 08/02/20 13 3:36PM;D iscontin ued Status: Disconti nued on: 03/17/20 14 2:43PM;U ser: [email or web address] Not Available Not Available Not Available Ranexa 1,000 mg tablet,ex tended release Take 1 tablet twice a day by oral route as directed . 10/23 completed Not Available Not Available Not Available Patanase 0.6 % nasal spray inhale 2 sprays in each nostril by intranas al route 2 times per day for 30 days 05/08 completed Patanase 0.6 % nasal spray,no n-aeroso l;Record ed Status: Recorded on: 09/26/19 10 1:26PM;D iscontin ued Status: Disconti nued on: 05/08/20 10 4:46PM;U ser: rankinw; Est. Completi on: 10/26/19 10;Print ed: 09/26/19 10 Not Available Not Available Not Available GaviLyte- N 420 gram oral solution 06/19 completed Not Available Not Available Not Available Effient 10 mg tablet take 1 tablet (10 mg) by oral route once daily active Not Available Not Available No t Available Livalo 1 mg tablet Take 1 tablet by oral route for 30 days. 10/23 completed Not Available Not Available Not Available Vicodin 5 mg-300 mg tablet take 1 tablet by oral route every 6 hours as needed for pain 11/16 completed Vicodin 5-300 mg oral tablet;R ecorded Status: Recorded on: 06/21/20 14 1:12PM;D iscontin ued Status: Disconti nued on: 11/17/19 15 5:06PM;U ser: guttmann ;Indicat ion: Pain - (16.7809 00) Not Available Not Available Not Available Vitals Date Recorded Body height Body mass index (BMI) Body weight Body temperature Heart rate Oxygen saturation Oxygen saturation in Arterial blood by Pulse oximetry Systolic And Diastolic Provider Name and Address Organization Details Last Updated DateTime 8 172.72 cm 39.8 kg/m2 983249. 2 g 98.2 [degF] 73 /min 98 % 98 % 124/82 mm[Hg] Xiang Snedegar [place] - [facility] 8 10:31:13 Date Recorded Body height Body mass index (BMI) Body weight Body temperature Heart rate Oxygen saturation Oxygen saturation in Arterial blood by Pulse oximetry Systolic And Diastolic Provider Name and Address Organization Details Last Updated DateTime 8 172.72 cm 39.5 kg/m2 432164. 02 g 98.4 [degF] 74 /min 96 % 96 % 128/84 mm[Hg] Xiang Snedegar [place] - [facility] 8 14:02:39 Date Recorded Body height Body mass index (BMI) Body weight Heart rate Respiratory rate Oxygen saturation Oxygen saturation in Arterial blood by Pulse oximetry Systolic And Diastolic Provider Name and Address Organization Details Last Updated DateTime 8 172.72 cm 39.4 kg/m2 367317. 42 g 74 /min 18 /min 95 % 95 % 130/78 mm[Hg] Amy Mcdonnell [place] - [facility] 8 15:42:01 Date Recorded Body height Body mass index (BMI) Body weight Body temperature Heart rate Oxygen saturation Oxygen saturation in Arterial blood by Pulse oximetry Systolic And Diastolic Provider Name and Address Organization Details Last Updated DateTime 8 172.72 cm 37.6 kg/m2 612680. 32 g 98.1 [degF] 72 /min 98 % 98 % 128/74 mm[Hg] Xiang Snedegar [place] - [facility] 8 12:52:10 Social History Question Answer Notes LastModified by Organizat ion Details LastModified Time Tobacco Smoking Status Never Smoker Xiang Gupta null, [place] - [facility] 05/19/2017 14:45:29 Do You Have An Advance Directive? No Information not available 05/19/2017 Are You Blind Or Do You Have Difficulty Seeing? No Information not available 05/19/2017 What Is Your Level Of Caffeine Consumption? Moderate Information not available 05/19/2017 How Much Tobacco Do You Chew? None Information not available 05/19/2017 Are You Deaf Or Do You Have Serious Difficulty Hearing? No Information not available 05/19/2017 Which Illicit Or Recreational Drugs Have You Used? Declined Information not available 05/19/2017 Hard Of Hearing Or Deaf In One Or Both Ears? No Information not available 05/19/2017 Legally Blind In One Or Both Eyes? No Information no t available 05/19/2017 Live Alone Or With Others? With Others Information not available 05/19/2017 What Was The Date Of Your Most Recent Tobacco Screening? 06/19/2018 Information not available 03/24/2019 How Many Children Do You Have? 1 Information not available 05/19/2017 What Is Your Relationship Status? Information not available 05/19/2017 How Much Tobacco Do You Smoke? No Information not available 05/19/2017 Has Tobacco Cessation Counseling Been Provided? No Information not available 05/19/2017 How Many Years Have You Smoked Tobacco? 0 Information not available 05/19/2017 Do You Have Difficulty Walking Or Climbing Stairs? No Information not available 05/19/2017 Sex: Female Functional Status Question Answer Note LastModified by Organizat ion Details LastModified Time What is your level of alcohol consumption? None Information not available 05/19/2017 Are you currently employed? No Information not available 05/19/2017 Are you able to walk independently without assistance or assistive devices? YESWOREST Information not available 05/19/2017 Do you have difficulty doing errands alone? No Information not available 05/19/2017 Are you able to care for yourself independently? Yes Information not available 05/19/2017 Do you have difficulty dressing, bathing, grooming, or toileting? No Information not available 05/19/2017 Mental Status Question Answer Note LastModified by Organization D etails LastModified Time Do you have difficulty concentrating, remembering or making decisions? No Information no t available 05/19/2017 Family History Relationship Description Onset Age of this Age Resolved Age Notes LastModified by Organization Details LastModified Time Father No current problems or disability [email or web address] Not available 05/19 14:44:34 Mother No current problems or disability [email or web address] Not available 05/19 14:44:34 Medical History No medical history recorded. Gynecological History Statement/Question Response Menses Monthly N Most Recent Mammogram Obstetrics History GPAL:G 3 P 1 0 2 1 Type Value Multiple Births 1 Full Term 1 Spontaneous 2 Living 1 Total 3 Immunizations Vaccine Type Date Status Note Provider Nam e and Address Organization Details Recorded Time influenza, unspecified formulation 4 completed Not Available [facility] 10/02/2019 02:21:29 influenza, unspecified formulation 5 completed Not Available [facility] 10/02/2019 02:21:29 influenza, unspecified formulation 6 completed Not Available [facility] 10/02/2019 02:21:29 Influenza, split virus, quadrivalent, preservative 7 completed Not Available [facility] 09/18/2019 03:54:41 Influenza, split virus, quadrivalent, preservative 8 completed Not Available [facility] 09/18/2019 03:55:22 Past Encounters Encounter ID Performer Location Encounter Start Date Encounter Closed Date Diagnosis/Indication Diagnosis SNOMED-CT Code Diagnosis ICD10 Code Diagnosis IMO Codes Diagnosis Note [id number] Karina Beach [facility] [address] [place] [address] 05/19/2017 14:20:48 05/19/2017 17:00:50 Body mass index 30+ - obesity 031264770 Z68.33 Pain in lower limb 90591 006 M79.662 M79.661 M79.671 M79.965 [id number] Karina Beach [employer] [facility] [address] [address] 06/16/2017 09:01:31 06/16/2017 10:08:45 Administration of influenza vaccine 26811713 Z23 [id number] Karina Beach [facility] [address] [place] [address] 09/04/2017 10:17:34 09/04/2017 12:17:13 Serous otitis media 96957845 H65.01 [id number] Karina Y[address] [place] [address] 10/23/2017 09:05:22 10/23/2017 10:01:16 Type 2 diabetes mellitus 68818331 E11.9 Hyperlipidemia 92224051 E78.2 Hypertensive disorder 38 324920 I10 Vitamin B1 2 deficiency (non anemic) 68312430 E53.8 Chronic ki dney disease stage 3 086211448 N18.3 [id number] Karina Yong[address] [place] [address] 12/08/2017 11:26:10 12/08/2017 12:37:35 Cobalamin deficiency 137582959 E53.8 Onychomycosis 773919636 B35.1 left great toe Flank pain 033002259 R10 .9 Type 2 alex betes mellitus 77424421 E11.9 [id number] Karinalisa Beach[address] [place] [address] 12/22/2017 09:57:35 12/22/2017 11:19:25 Adult health examination 679694402 Z00.00 Examinatio n of blood pressure 321089199 Z01.30 Diet education 93799162 Z71.3 Counseling 936192209 Z71 .82 Exercise counseling . Patient encouraged to exercise 30 minutes 5 days a week. Screening mammography 24 079489 Z12.31 Screening colonoscopy 44 6972131 Z12.11 [id number] Karinalisa Beach[address] [place] [address] 04/16/2018 13:51:46 04/16/2018 15:44:25 Cobalamin deficiency 895037057 E53.8 Hepatomegaly 08839537 R1 6.0 Type 2 alex betes mellitus 41313774 E11.9 [id number] Marianne Villeda, MS, RD, [address] [place] [place] [address] 04/30/2018 09:03:39 04/30/2018 10:48:13 Type 2 diabetes mellitus 90559242 E11.8 [id number] Karina Beach APRN [facility] [address] [place] [address] 05/25/2018 14:59:44 05/25/2018 16:41:28 Vertigo 654683520 R42 [id number] Karina Beach APRN [place] [address] [facility] [place] [address] 06/19/2018 12:36:34 06/19/2018 14:39:37 Administration of influenza vaccine 44565772 Z23 Candidiasis of mouth 797 50856 B37.0 Cobalamin deficiency 190 834045 E53.8 Health Concerns Section Related Observation LastModified by Organization Detai ls LastModified Time None Recorded Concern Status LastModified by Organization Details LastModified Time None Recorded Advance Directives Directive N: Payers Insurance Date Sequence Insurance Name Policy Number Policy Robledo Covered Member ID Robledo Member ID Guarantor Name 06/19/2018 [employer] NATIONAL - MEDICARE [facility] (MEDICARE) Jazmine Walters [id number] Jazmine Walters 06/19/2018 1 [place] Jazmine Walters [id number] Jazmine Walters 11/05/2018 2 [facility] [place]IX[place] Jazmine Walters [id number] Jazmine Walters Notes Date Note Type Note Provider Name and Address Organization Details Recorded Time 8 text/html Medicare Annual Wellness VisitReported by PatientSocial/Behavioral HistoryFor diet and nutrition, patient reportshigh carbohydrate mealsbut reportsdiscussed maintaining calcium balanceanddiscussed diet improvement. For physical activity, patient reportsdecreased physical activitybut reportsdiscussed exercise habits. For fracture risk, patient reportsno history of fractures,no recent explained fracture,no sudden unexplained fractures, andno previous musculoskeletal injuries.Mental Status:For depression risk, patient reportsfeels sad, empty, or tearful,sleep disturbances or insomnia,loss of energy,history of mood disorders, andhistory of depression. For concentration and memory, patient reportsdecreased concentrating abilityandmemory lapses or lossbut reportsdoes not forget words. For speech/motor difficulties, patient reportsdifficulty expressing formulated conceptsbut reportsno speech difficulties,no difficulty with fine manipulative tasks,no difficulty writing/copying,no slowed reaction time, anddoes not knock things over when trying to pick them up. For orientation, patient reportsno disorientation to time,no disorientation to date, andno disorientation to place.Functional AbilityFor vision, patient reportsbriefly vision loss. For falls risk assessment, patient reportsfear of fallingbut reportsno frequent falls while walking,no fall in the past year, andno fall since last visit. For home safety, patient reportsfire armsbut reportsno unsafe gino hazzards,no unsafe stairs,no unsafe gas appliances,working smoke/co detectors,use of seatbelts,practicing 'safer sex',no vision or hearing loss while driving,has hand bars in the bathroom/shower, andgood lighting in the home. For hearing, patient reportsno loss of hearing. For activities of daily living, patient reportsable to bathe with limited or no assistance,able to contol urination and bowels,able to dress with limited or no assistance,able to feed self with limited or no assistance,able to get out of chair or bed with limited or no assistance,able to groom with limited or no assistance, andable to toilet with limited or no assistance. For instrumental activities of daily living, patient reportsable to do house work with limited or no assistance,able to grocery shop with limited or no assistance,able to manage medications with limited or no assistance,able to manage money with limited or no assistance,able to prepare meals with limited or no assistance, andable to use the phone with limited or no assistance. Karina Beach APRN [address], [place], [address], [employer] [facility] 12/25/2017 20:17:09 8 text/html presents for B12 injection and for liver function tests per recommendation of specialist for findings of fatty liver on recent testing.denies abdominal pain, bloating, change in appetite or stools or jaundice. Karina Beach APRN [address], [place], [address], [employer] [facility] 04/22/2018 11:13:06 8 text/html Initial Nutrition Assessment Initial nutrition assessment for: Diabetes Patient was referred by: Kathy Beach APRN Client History: Medical History: IBS, HTN, CKD Stage 3, T2DM, hyperlipidemia Medications: Reviewed. Family History: Reviewed. Personal History: Social History: . She lives with her and her sister recently moved in. Employment: Unemployed. Smoking Status: Non-smoker. Diet Recall: Breakfast: sausage (2), egg (2) and toast (2), coffee with 2% milk. Snack: I was eating wrong, just to be honest I was eating junk. Chips. Trying to get a hold of it. I would igor eat all day----> stress/boredom vs hunger. Tired a lot. Lunch: leftovers from the night before-pork chop/pickle loaf, cheese and wheat bread, small bag of chips, and diet pop. Snack: Rice krispies treats-was eating these a lot. Dinner: usually meat, potatoes, roll. Snack: Was snacking before bed but isn't now. Still craving sweet things-sometimes will have diet ice cream. Drinks: Diet Mt. Dew, tea with artificial sweetener. Notes and/or Diet History: - Additional Notes: Craving sweet stuff. Has them in the house. Made a chocolate cake. Sister moved in with her and her . Patient does most of the cooking. Getting up in the middle of the night and eating cake.Started making changes when Karina said she might have to go on insulin. Patient states she was diagnosed with diabetes in her 40s. She saw an RD a long time ago. Physical Activity/Sleep: Discuss exercise in more detail at follow up. Labs: 04/16 Gluc 137H, A1C 8H-----> note from provider, renal function stable. Continue nephrology care as scheduled. Liver function normal. Would recommend awaiting GI referral and just repeat labs in 6 months. A1C is 8.0, near level to recommend insulin. Patient to perform twice daily BS testing and keep log. Consult for RD. F/U in 1 month for diabetic check up. Energy Needs: 1540-1925kcals (20-25kcals/kg ABW 77kg); 1925-2310kcals (25-30kcals/kg ABW) Anthropometrics: Weight: 04/16 260# Height: 68 BMI: 39.5 Estimated IBW: 140# % IBW: 190% IBW Weight History/Change: - Nutrition Diagnosis: Problem:Inconsistent Carbohydrate Intake related to Etiology: Food and Nutrition Knowledge Deficit as evidenced by Signs and Symptoms: Discussion with Patient and Food Recall Nutrition Intervention: Documentation Consultant Goals: Healthy improvement of blood sugar through nutrition education and support. Short Term Goals: 1) Encouraged to follow the meal plan. Encouraged to read food labels, use measuring cups and plan ahead.2) Encouraged proper hydration. Strongly encouraged to increase water.3) Consider keeping food and blood sugar log.4) Follow up with RD in 2-4 weeks. Nutrition Prescription: Recommended 45-60g carbohydrates at meals and 15-30g carbohydrates at snacks. Discussed the importance of consistency with timing of meals and amount of carbohydrates. Encouraged to also include lean protein and non-starchy vegetables. Intervention #1: Modify distribution, type, amount of food and nutrients within a meal or at specified times ND1.2 See short term goals. Intervention #2: Nutrition Education E1.1 Educated on foods that contain carbohydrates, individualized meal plan, importance of small/frequent meals/snacks with consistency with timing of meals and amount of carbohydrates, discussed how to read a food label, how using measuring cups is helpful in the beginning, planning ahead, proper hydration, and how keeping a food and blood sugar log is useful in follow up. Intervention #3: Self monitoring C2.3 Encouraged small/frequent meals/snacks with consistency with timing of meals and amount of carbohydrates. Encouraged to use MyPlate as a guide. Encouraged proper hydration. Monitoring and Evaluation: Food/Nutrient-related history outcomes: Types of food/meals ND1.2, E1.1 and C2.3 baseline. Labs: - Anthropometric: weight change Handouts provided: Consistent Carbohydrate Handout. [facility] - [facility] 04/30/2018 13:46:20 8 text/html DizzinessReported by PatientHPIFor severity, patient reportssome effect on daily activitiesandavoiding driving. For quality, patient reportsspinning,lightheade dness,unsteadiness,feeling of being pushed (side), andclumsiness. For duration, patient reportsconstant. For onset/timing, patient reportsactual date of onset: (today). For modifying factors, patient reportsgoing from sit to stand,change in position, andrapid movements. For alleviating factors, patient reportslying downandsleep. For associated symptoms, patient reportsno slurred speech,no loss of consciousness, andno headache. Karina Beach APRN [address], [place], [address], [facility] 05/25/2018 21:52:54 8 text/html presents for flu and B12 injection and with acute c/o burning/discomfort to roof of her mouth. Karina Beach APRN [address], [place], [address], [facility] 07/12/2018 21:58:07 OBGyn Episode No OBEpisode recorded.
--- OUTSIDE RECORDS SUMMARY | 2025-06-25 14:28 | XMS_ITS | Clinical Summary ---
Author Organization [employer] [facility] are Address [address] [place] [id number] Phone Care Team Providers Care Marble Helper Name Role Phone Unavailable Unavailable Conditions or Problems No information available. Medications No information available. Medications Administered No information available. Allergies, Adverse Reactions, Alerts No information available. Results No information available. Plan of Care No information available. Procedures No information available. Vital Signs No information available. Immunizations No information available. Advance Directives No information available.
--- OUTSIDE RECORDS SUMMARY | 2025-06-25 14:28 | XMS_ITS | Clinical Summary ---
Author Organization [facility] Address [address] [place] [address] Care Team Providers Care Software Technical Lead Name Role Phone Delphine Paula PA-C Primary Care Provider [phone] Allergies No known active allergies Medications aspirin [...] Insurance [employer] ACCESS Care Teams Software Technical Lead Relationship Specialty Start Date End Date Delphine Paula PA-C [address] [address] PCP - General Physician Manager Workers Compensation 06/13/21
--- OUTSIDE RECORDS SUMMARY | 2025-06-25 14:28 | XMS_ITS | Encounter Summary ---
Author Organization [place] [address] Care Team Providers Care Zyglo Technician Name Role Phone Pat Connelly MD Primary Care Provider Vanessa Burgos MD Primary Care Provider [phone] Karina Beach APRN Primary Care Provider [phone] Encounter Details Date Type Department Care Team (Latest Contact Info) Description 02/12/2013 Pre-Imaging Procedure MD Adult Med [address] [place], [place] [id number] Nikkie Galvez, JULIO Supraclavicular adenopathy (Primary Dx) [...] on file documented as of this encounter Visit Diagnoses Diagnosis Supraclavicular adenopathy- Primary Enlargement of lymph nodes documented in this encounter Care Teams Zyglo Technician Relationship Specialty Start Date End Date Pat Connelly MD PCP - General 12/29/10 07/25/13 Vanessa Connelly MD [address] [place] [address] PCP - General Family Medicine 07/26/13 11/20/16 Karina Beach APRN [address] [place] [address] PCP - General Nurse Practitioner-Family 11/21/1601/30 documented as of this encounter
--- OUTSIDE RECORDS SUMMARY | 2025-06-25 14:28 | XMS_ITS | Data Portability ---
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 Plan of Treatment Reminders Order Date Submit Date Provider Last Modified By Organization Details Last Modified Time Details Appointments None recorded. Lab iron + TIBC + ferritin, serum 2022 023 marcela Pompa (Centralized Scheduling), [address], [place], [address], 3 10:18:22 CBC w/ auto diff 2022 023 SHARIF Pompa (Centralized Scheduling), [address], [place], [address], 3 15:34:01 iron + TIBC + ferritin, serum 2022 023 dominick Pompa (Centralized Scheduling), [place], [address], 3 10:38:09 retic count, blood 2022 023 SHARIF Pompa (Centralized Scheduling), [place], [address], 3 15:34:02 CBC w/ auto diff 2022 023 SHARIF Pompa (Centralized Scheduling), [address], [place], [address], 3 16:44:14 iron + TIBC + ferritin, serum 2022 023 dominick Pompa (Centralized Scheduling), [address], [place], [address], 3 11:46:10 vitamin B12 + folate, serum or blood 2022 023 SHARIF Aletha (Centralized Scheduling), [address], [place], [address], 3 12:13:24 tissue transgluta minase iga Ab, serum 2022 023 dominick Pompa (Centralized Scheduling), [address], [place], [address], 3 11:45:53 iga, quantitati ve, serum 2022 023 dominick Pompa (Centralized Scheduling), [address], [place], [address], 3 11:45:30 Referral None recorded. Procedures colonoscop y procedure (PROC) - PHYSICIAN ORDERS 1. Ensure patient is NPO and bowel prep complete. 0.9% normal saline @kvo preferably in right arm; IV patent to gravity. 3. Verify consent. Colonoscop y with possible biopsy with possible polypectom y. 4. On-Call to Endoscopy. 5. If prep not clear, give large volume enema and report results. 6. Draw pt/inr if patient on Coumadin Hold 2022 023 dominick Pompa (Outpatient Surgery), [address], [place], [address], 3 11:47:57 esophagoga stroduoden oscopy with biopsy (PROC) - PHYSICIAN ORDERS 1. Ensure patient is NPO. 0.9% normal saline @kvo preferably in right arm; IV patent to gravity. 3. verify consent. EGD with possible biopsy with possible dilation. 4. On-Call to Endoscopy. 5. Draw pt/inr if patient on Coumadin Hold 2022 023 jhonathan Pompa (Outpatient Surgery), [address] [place] [address] , [place], [address], 11:47:39 Surgeries None recorded. Imaging None recorded. Medication Orders famotidine 40 mg tablet 2022 023 [facility], [address] [place] [address], [address], 3 09:26:12 Suprep Bowel Prep Kit 17.5 gram-3.13 gram-1.6 gram oral solution [address], [address], 3 14:06:31 Patient TargetsNo targets recorded. Patient Instructions Encounter Date Encounter Id Patient Instructions Last Modified By Organization Details Last Modified Time 10/08/2022 [id number] The indications, technique, alternatives, and potential risks and complications of planned procedure were discussed with the patient including, but not limited to bleeding, perforation, missed lesions, and anesthesia complications. The patient understands and wishes to proceed and has given informed consent. Written information provided to the patient. [email or web address] Not available 10/08/2022 15:35:33 Reason for Referral None Reported. Results Created Date Observation Date Name Description Value Unit Range Abnormal Flag Note LastModifiedBy Organization Detail LastModifiedTime 10/08/1910/08/2022 CBC W/AUT O HALEY MEDINA note SEE NOTE Order ing Provi gabriela: Agusto de MD Not Available [address] , [place], [address], 10/08/2022 16:44:14 10/08/19 23 10/08/2022 CBC W/AUT O DIFFE RENTI AL white blood cell 9.1 10e3/ uL 4.5-13 .0 normal Not Available [address] Jessica Bangura, [place], [address], 10/08/2022 16:44:14 10/08/19 23 10/08/2022 CBC W/AUT O DIFFE RENTI AL red blood cell 4.93 10e6/ uL 3.80-5 .10 normal Not Available [address] Jessica Bangura, [place], [address], 10/08/2022 16:44:14 10/08/19 23 10/08/2022 CBC W/AUT O DIFFE RENTI AL hemoglobin 13.1 g/dL 11.5-1 5.3 normal Not Available [address] Jessica Bangura, [place], [address], 10/08/2022 16:44:14 10/08/19 23 10/08/2022 CBC W/AUT O DIFFE RENTI AL hematocrit 40.9 % 34.0-4 6.0 normal Not Available [address] Jessica Bangura, [place], [address], 10/08/2022 16:44:14 10/08/19 23 10/08/2022 CBC W/AUT O DIFFE RENTI AL mean cell volume 83 fL 78.0-9 8.0 normal Not Available [address] Jessica Bangura, [place], [address], 10/08/2022 16:44:14 10/08/19 23 10/08/2022 CBC W/AUT O DIFFE RENTI AL mean cell HGB 26.6 pg 25.0-3 5.0 normal Not Available [address] Jessica Bangura, [place], [address], 10/08/2022 16:44:14 10/08/19 23 10/08/2022 CBC W/AUT O DIFFE RENTI AL mean cell HGB concentratio n 32.0 g/dL 31.0-3 6.0 normal Not Available [address] Jessica Bangura, [place], [address], 10/08/2022 16:44:14 10/08/19 23 10/08/2022 CBC W/AUT O DIFFE RENTI AL red cell distribution width 15.6 % 11.0-1 5.0 high Not Available [address] Jessica Bangura, [place], [address], 10/08/2022 16:44:14 10/08/19 23 10/08/2022 CBC W/AUT O DIFFE RENTI AL platelet count 291 10e3/ uL 150-40 0 normal Not Available [address] , [place], [address], 10/08/2022 16:44:14 10/08/19 23 10/08/2022 CBC W/AUT O DIFFE RENTI AL immature granulocyte % 1 0-1 normal Not Available [address] Jessica Bangura, [place], [address], 10/08/2022 16:44:14 10/08/19 23 10/08/2022 CBC W/AUT O DIFFE RENTI AL neutrophil % 70 % 35-75 normal Not Available [address] Jessica Bangura, [place], [address], 10/08/2022 16:44:14 10/08/19 23 10/08/2022 CBC W/AUT O DIFFE RENTI AL lymphocyte % 19 % 10-50 normal Not Available [address] Jessica Bangura, [place], [address], 10/08/2022 16:44:14 10/08/19 23 10/08/2022 CBC W/AUT O DIFFE RENTI AL monocyte % 8 % 0-15 normal Not Available [address] [place], [address], 10/08/2022 16:44:14 10/08/19 23 10/08/2022 CBC W/AUT O DIFFE RENTI AL eosinophil % 2 % 0-5 normal Not Available [address] , [place], [address], 10/08/2022 16:44:14 10/08/19 23 10/08/2022 CBC W/AUT O DIFFE RENTI AL basophil % 1 % 0-5 normal Not Available [address] Jessica Bangura, [place], [address], 10/08/2022 16:44:14 10/08/19 23 10/08/2022 CBC W/AUT O DIFFE RENTI AL immature granulocyte # 0.05 x1000 /uL 0-0.05 normal Not Available [address] Jessica Bangura, [place], [address], 10/08/2022 16:44:14 10/08/19 23 10/08/2022 CBC W/AUT O DIFFE RENTI AL neutrophil # 6.40 x1000 /uL 1.50-8 .00 normal Not Available [address] Jessica Bangura, [place], [address], 10/08/2022 16:44:14 10/08/19 23 10/08/2022 CBC W/AUT O DIFFE RENTI AL lymphocyte # 1.73 x1000 /uL 1.20-5 .20 normal Not Available [address] Jessica Bangura, [place], [address], 10/08/2022 16:44:14 10/08/19 23 10/08/2022 CBC W/AUT O DIFFE RENTI AL monocyte # 0.68 x1000 /uL 0.40-0 .90 normal Not Available [address] Jessica Bangura, [place], [address], 10/08/2022 16:44:14 10/08/19 23 10/08/2022 CBC W/AUT O DIFFE RENTI AL eosinophil # 0.15 x1000 /uL 0.00-0 .50 normal Not Available [address] , [place], [address], 10/08/2022 16:44:14 10/08/19 23 10/08/2022 CBC W/AUT O DIFFE RENTI AL basophil # 0.06 x1000 /uL 0.00-0 .30 normal Not Available [address] , [place], [address], 10/08/2022 16:44:14 10/08/19 23 10/08/2022 CBC W/AUT O DIFFE RENTI AL NRBC automated 0.0 /100_ WBC Not Available [address] , [place], [address], 10/08/2022 16:44:14 10/08/19 23 10/08/2022 CBC W/AUT O DIFFE RENTI AL performing lab SEE NOTE [facility] [address] [place] [address] Not Available [address] , [place], [address], 10/08/2022 16:44:14 10/08/19 23 10/08/2022 FE W/TOT AL IRON JEFFREY NG CAP note See Note Order ing Provi gabriela: Agusto de MD Not Available [address] , [place], [address], 10/08/2022 17:20:02 10/08/19 23 10/08/2022 FE W/TOT AL IRON JEFFREY NG CAP iron 44 ug/dL 50-170 low Not Available [address] , [place], [address], 10/08/2022 17:20:02 10/08/19 23 10/08/2022 FE W/TOT AL IRON JEFFREY NG CAP total iron binding capacity 199 ug/dL 260-44 5 low Not Available [address] , [place], [address], 10/08/2022 17:20:02 10/08/19 23 10/08/2022 FE W/TOT AL IRON JEFFREY NG CAP iron saturation 22 % 20-50 normal Not Available [address] , [place], [address], 10/08/2022 17:20:02 10/08/19 23 10/08/2022 FE W/TOT AL IRON JEFFREY NG CAP performing lab see note ML - [facility] [address] [facility] [address] Not Available [address] , [place], [address], 10/08/2022 17:20:02 10/08/19 23 10/08/2022 SASHA TIN note See Note Order ing Provi gabriela: Agusto de MD Not Available [address] , [place], [address], 10/10/2022 10:39:45 10/08/19 23 10/08/2022 SASHA TIN ferritin 336 NG/mL 8-252 high Not Available [address] , [place], [address], 10/10/2022 10:39:45 10/08/19 23 10/08/2022 SASHA TIN performing lab see note ML - [facility] [address] [facility] [address] Not Available [address] , [place], [address], 10/10/2022 10:39:45 10/08/19 23 10/08/2022 IMMUN OGLOB ULIN A note See Note Order ing Provi gabriela: Agusto de MD Not Available [address] , [place], [address], 10/10/2022 10:39:46 10/08/19 23 10/08/2022 IMMUN OGLOB ULIN A immunoglobul in A 219 mg/dL 87-352 Perfo rmed At: CB, [facility] n [address] [facility], [place], [address] Angel guzman, PhD, Phone : [phone] Not Available [address] , [place], [address], 10/10/2022 10:39:46 10/08/19 23 10/08/2022 IMMUN OGLOB ULIN A performing lab see note LC2 - LABCO RP CLIEN T# [id number] [address] [address] Not Available [address] , [place], [address], 10/10/2022 10:39:46 10/08/19 23 10/08/2022 VITAM IN B12 FOLAT E note SEE NOTE Order ing Provi gabriela: Agusto de MD Not Available [address] , [place], [address], 10/10/2022 12:13:24 10/08/19 23 10/08/2022 VITAM IN B12 FOLAT E vitamin B12 274 pg/mL 232-12 45 Not Available [address] , [place], [address], 10/10/2022 12:13:24 10/08/19 23 10/08/2022 VITAM IN B12 FOLAT E folic acid 6.1 NG/mL >3.0 . A serum folat e lori ntrat ion of less than 3.1 ng/mL is consi dered to repre sent clini ani defic iency . Perfo rmed At: CB, [facility] [place] [address] [facility], [place], [address]68 Angel guzman, PhD, Phone : [phone] Not Available [address] , [place], [address], 10/10/2022 12:13:24 10/08/19 23 10/08/2022 VITAM IN B12 FOLAT E performing lab SEE NOTE LC2 - LABCO RP CLIEN T# [id number] [address] [address] Not Available [address] , [place], [address], 10/10/2022 12:13:24 10/08/19 23 10/08/2022 AB TISSU E TRANS GLUTA ISA E IGA note See Note Order ing Provi gabriela: Agusto de MD Not Available [address] , [place], [address], 10/10/2022 16:15:07 10/08/19 23 10/08/2022 AB TISSU E TRANS GLUTA ISA E IGA Ab tissue transglutami nase IgA <2 U/mL 0-3 Negat shmuel 0 - 3 Weak Posit shmuel 4 - 10 Posit shmuel >10 . Tissu e Trans gluta isa e (tTG) has been ident ified as the endom ysial antig en. Studi es have demon str- ated that endom ysial IgA antib odies have over 99% speci ficit y for glute n sensi tive enter opath y. Perfo rmed At: CB, [facility] [place] [address] [facility], [place], [address] Angel guzman, PhD, Phone : [phone] Not Available [address] , [place], [address], 10/10/2022 16:15:07 10/08/19 23 10/08/2022 AB TISSU E TRANS GLUTA ISA E IGA performing lab see note LC2 - LABCO RP CLIEN T# [id number] [address] [address] Not Available [address] , [place], [address], 10/10/2022 16:15:07 10/11/19 23 10/11/2022 CBC W/AUT O DIFFE RENTI AL note See Note Order ing Provi gabriela: Agusto de MD Not Available [address] , [place], [address], 10/11/2022 11:49:23 10/11/19 23 10/11/2022 CBC W/AUT O DIFFE RENTI AL white blood cell 8.8 10e3/ uL 4.5-13 .0 normal Not Available [address] , [place], [address], 10/11/2022 11:49:23 10/11/19 23 10/11/2022 CBC W/AUT O DIFFE RENTI AL red blood cell 5.15 10e6/ uL 3.80-5 .10 high Not Available [address] , [place], [address], 10/11/2022 11:49:23 10/11/19 23 10/11/2022 CBC W/AUT O DIFFE RENTI AL hemoglobin 13.8 g/dL 11.5-1 5.3 normal Not Available [address] , [place], [address], 10/11/2022 11:49:23 10/11/19 23 10/11/2022 CBC W/AUT O DIFFE RENTI AL hematocrit 43.4 % 34.0-4 6.0 normal Not Available [address] Jessica [address]ura, [place], [address], 10/11/2022 11:49:23 10/11/19 23 10/11/2022 CBC W/AUT O DIFFE RENTI AL mean cell volume 84 fL 78.0-9 8.0 normal Not Available [place] [address], [place], [address], 10/11/2022 11:49:23 10/11/19 23 10/11/2022 CBC W/AUT O DIFFE RENTI AL mean cell HGB 26.8 pg 25.0-3 5.0 normal Not Available [address] Jessica Bangura, [place], [address], 10/11/2022 11:49:23 10/11/19 23 10/11/2022 CBC W/AUT O DIFFE RENTI AL mean cell HGB concentratio n 31.8 g/dL 31.0-3 6.0 normal Not Available [address] Jessica Bangura, [place], [address], 10/11/2022 11:49:23 10/11/19 23 10/11/2022 CBC W/AUT O DIFFE RENTI AL red cell distribution width 15.5 % 11.0-1 5.0 high Not Available [place] [address], [place], [address], 10/11/2022 11:49:23 10/11/19 23 10/11/2022 CBC W/AUT O DIFFE RENTI AL platelet count 285 10e3/ uL 150-40 0 normal Not Available [address] Jessica Bangura, [place], [address], 10/11/2022 11:49:23 10/11/19 23 10/11/2022 CBC W/AUT O DIFFE RENTI AL immature granulocyte % 0 0-1 normal Not Available [address] Jessica Bangura, [place], [address], 10/11/2022 11:49:23 10/11/19 23 10/11/2022 CBC W/AUT O DIFFE RENTI AL neutrophil % 73 % 35-75 normal Not Available [address] , [place], [address], 10/11/2022 11:49:23 10/11/19 23 10/11/2022 CBC W/AUT O DIFFE RENTI AL lymphocyte % 18 % 10-50 normal Not Available [address] , [place], [address], 10/11/2022 11:49:23 10/11/19 23 10/11/2022 CBC W/AUT O DIFFE RENTI AL monocyte % 7 % 0-15 normal Not Available [address] Jessica [address]ura, [place], [address], 10/11/2022 11:49:23 10/11/19 23 10/11/2022 CBC W/AUT O DIFFE RENTI AL eosinophil % 2 % 0-5 normal Not Available [address] Jessica [address]ura, [place], [address], 10/11/2022 11:49:23 10/11/19 23 10/11/2022 CBC W/AUT O DIFFE RENTI AL basophil % 1 % 0-5 normal Not Available [address] Jessica [address]ura, [place], [address], 10/11/2022 11:49:23 10/11/19 23 10/11/2022 CBC W/AUT O DIFFE RENTI AL immature granulocyte # 0.03 x1000 /uL 0-0.05 normal Not Available [address] Jessica Bangura, [place], [address], 10/11/2022 11:49:23 10/11/19 23 10/11/2022 CBC W/AUT O DIFFE RENTI AL neutrophil # 6.38 x1000 /uL 1.50-8 .00 normal Not Available [address] Jessica [address]ura, [place], [address], 10/11/2022 11:49:23 10/11/19 23 10/11/2022 CBC W/AUT O DIFFE RENTI AL lymphocyte # 1.55 x1000 /uL 1.20-5 .20 normal Not Available [address] Jessica Bangura, [place], [address], 10/11/2022 11:49:23 10/11/19 23 10/11/2022 CBC W/AUT O DIFFE RENTI AL monocyte # 0.62 x1000 /uL 0.40-0 .90 normal Not Available [address] Jessica Bangura, [place], [address], 10/11/2022 11:49:23 10/11/19 23 10/11/2022 CBC W/AUT O DIFFE RENTI AL eosinophil # 0.13 x1000 /uL 0.00-0 .50 normal Not Available [place] [address], [place], [address], 10/11/2022 11:49:23 10/11/19 23 10/11/2022 CBC W/AUT O DIFFE RENTI AL basophil # 0.10 x1000 /uL 0.00-0 .30 normal Not Available [address] Jessica Bangura, [place], [address], 10/11/2022 11:49:23 10/11/19 23 10/11/2022 CBC W/AUT O DIFFE RENTI AL NRBC automated 0.0 /100_ WBC Not Available [address] Jessica Bangura, [place], [address], 10/11/2022 11:49:23 10/11/19 23 10/11/2022 CBC W/AUT O DIFFE RENTI AL performing lab see note ML - [facility] [address] [facility] [address] Not Available [address] , [place], [address], 10/11/2022 11:49:23 10/11/19 23 10/11/2022 FE W/TOT AL IRON JEFFREY NG CAP note See Note Order ing Provi gabriela: Agusto de MD Not Available [address] , [place], [address], 10/11/2022 12:41:39 10/11/19 23 10/11/2022 FE W/TOT AL IRON JEFFREY NG CAP iron 42 ug/dL 50-170 low Not Available [address] , [place], [address], 10/11/2022 12:41:39 10/11/19 23 10/11/2022 FE W/TOT AL IRON JEFFREY NG CAP total iron binding capacity 233 ug/dL 260-44 5 low Not Available [address] , [place], [address], 10/11/2022 12:41:39 10/11/19 23 10/11/2022 FE W/TOT AL IRON JEFFREY NG CAP iron saturation 18 % 20-50 low Not Available [address] , [place], [address], 10/11/2022 12:41:39 10/11/19 23 10/11/2022 FE W/TOT AL IRON JEFFREY NG CAP performing lab see note ML - [facility] [address] [facility] [place] [address] Not Available [address] Jessica Bangura, [place], [address], 10/11/2022 12:41:39 10/11/19 23 10/11/2022 SASHA TIN note See Note Order ing Provi gabriela: Agusto de MD Not Available [address] , [place], [address], 10/12/2022 08:17:04 10/11/19 23 10/11/2022 SASHA TIN ferritin 356 NG/mL 8-252 high Not Available [address] , [place], [address], 10/12/2022 08:17:04 10/11/19 23 10/11/2022 SASHA TIN performing lab see note - [address] [facility] [address] Not Available [address] , [place], [address], 10/12/2022 08:17:04 10/11/19 23 10/11/2022 IMMUN OGLOB ULIN A note See Note Order ing Provi gabriela: Agusto de MD Not Available [address] , [place], [address], 10/12/2022 08:17:05 10/11/19 23 10/11/2022 IMMUN OGLOB ULIN A immunoglobul in A 239 mg/dL 87-352 Perfo rmed At: CB, [facility] r[facility] [address] [place], [address] Angel guzman, PhD, Phone : [phone] Not Available [address] [place], [address], 10/12/2022 08:17:05 10/11/19 23 10/11/2022 IMMUN OGLOB ULIN A performing lab see note LC2 - LABCO RP CINTIAIEN T# [id number] [address] [address] Not Available [address] , [place], [address], 10/12/2022 08:17:05 10/11/19 23 10/11/2022 VITAM IN B12 FOLAT E note See Note Order ing Provi gabriela: Agusto de MD Not Available [address] , [place], [address], 10/12/2022 09:38:59 10/11/19 23 10/11/2022 VITAM IN B12 FOLAT E vitamin B12 322 pg/mL 232-12 45 Not Available [address] , [place], [address], 10/12/2022 09:38:59 10/11/19 23 10/11/2022 VITAM IN B12 FOLAT E folic acid 5.9 NG/mL >3.0 . A serum folat e lori ntrat ion of less than 3.1 ng/mL is consi dered to repre sent clini ani defic iency . Perfo rmed At: CB, [facility] [address] [place], [address] 1007 Angel xiomara guzman, PhD, Phone : [phone] Not Available [address] , [place], [address], 10/12/2022 09:38:59 10/11/19 23 10/11/2022 VITAM IN B12 FOLAT E performing lab see note LC2 - LABCO RP CLIEN T# [id number] [id number] [address] [place] [address] Not Available [address] [place], [address], 10/12/2022 09:38:59 10/11/19 23 10/11/2022 AB TISSU E TRANS GLUTA ISA E IGA note See Note Order ing Provi gabriela: Agusto de MD Not Available [address] [place], [address], 10/12/2022 16:11:46 10/11/19 23 10/11/2022 AB TISSU E TRANS GLUTA ISA E IGA Ab tissue transglutami nase IgA <2 U/mL 0-3 Negat shmuel 0 - 3 Weak Posit shmuel 4 - 10 Posit shmuel >10 . Tissu e Trans gluta isa e (tTG) has been ident ified as the endom ysial antig en. Studi es have demon str- ated that endom ysial IgA antib odies have over 99% speci ficit y for glute n sensi tive enter opath y. Perfo rmed At: CB, [facility] [address] [place], [address] [facility] xoimara guzman, PhD, Phone : [phone] Not Available [address] , [place], [address], 10/12/2022 16:11:46 10/11/19 23 10/11/2022 AB TISSU E TRANS GLUTA ISA E IGA performing lab see note LC2 - LABCO RP CLIEN T# [id number] [address] [place] [address] Not Available [address] [place], [address], 10/12/2022 16:11:46 10/14/19 23 10/14/2022 GLUCO SE POINT OF CARE note See Note Order ing Provi gabriela: Agusto de MD Not Available [address] [place], [address], 10/14/2022 09:25:09 10/14/19 23 10/14/2022 GLUCO SE POINT OF CARE glucose point of care 126 mg/dL 70-99 high Not Available [address] [place], [address], 10/14/2022 09:25:09 10/14/19 23 10/14/2022 GLUCO SE POINT OF CARE performing lab see note [facility] - [address] [place] f[place]án[place] [address] Not Available [address] , [place], [address], 10/14/2022 09:25:09 10/16/19 23 10/16/2022 HOMOC YSTEI NE PLASM A note SEE NOTE Order ing Provi gabriela: Agusto de MD Not Available [address] , [place], [address], 10/17/2022 14:12:45 10/16/19 23 10/16/2022 HOMOC YSTEI NE PLASM A homocysteine plasma 16.1 umol/ L 0.0-17 .2 Perfo rmed At: CB, [facility] [address] [place], [address] 8302 Angelpepe guzman, PhD, Phone : [phone] Not Available [address] , [place], [address], 10/17/2022 14:12:45 10/16/19 23 10/16/2022 HOMOC YSTEI NE PLASM A performing lab SEE NOTE LC2 - LABCO RP CLIEN T# [id number] [address] [place] [address] Not Available [address] , [place], [address], 10/17/2022 14:12:45 10/16/19 23 10/16/2022 METHY LMALO MARILIN ACID note SEE NOTE Order ing Provi gabriela: Agusto de MD Not Available [address] , [place], [address], 11/01/2022 14:14:46 10/16/19 23 10/16/2022 METHY LMALO MARILIN ACID methylmaloni c acid 322 nmol/ L 0-378 Perfo rmed At: BN, [facility] [place] [address] , [place], [address] Cara talamantes MD, Phone : [phone] Not Available [address] , [place], [address], 11/01/2022 14:14:46 10/16/19 23 10/16/2022 METHY LMALO MARILIN ACID performing lab SEE NOTE LC2 - LABCO RP CLIEN T# [id number] 022 [address] [place] [address] Not Available [address] , [place], [address], 11/01/2022 14:14:46 12/18/19 23 12/17/2022 CBC W/AUT O DIFFE RENTI AL note SEE NOTE Order ing Provi gabriela: Agusto de MD Not Available [address] , [place], [address], 12/17/2022 15:34:01 12/18/19 23 12/17/2022 CBC W/AUT O DIFFE RENTI AL white blood cell 7.0 10e3/ uL 4.5-13 .0 normal Not Available [address] , [place], [address], 12/17/2022 15:34:01 12/18/19 23 12/17/2022 CBC W/AUT O DIFFE RENTI AL red blood cell 5.32 10e6/ uL 3.80-5 .10 high Not Available [address] , [place], [address], 12/17/2022 15:34:01 12/18/19 23 12/17/2022 CBC W/AUT O DIFFE RENTI AL hemoglobin 14.1 g/dL 11.5-1 5.3 normal Not Available [address] , [place], [address], 12/17/2022 15:34:01 12/18/19 23 12/17/2022 CBC W/AUT O DIFFE RENTI AL hematocrit 44.2 % 34.0-4 6.0 normal Not Available [address] , [place], [address], 12/17/2022 15:34:01 12/18/19 23 12/17/2022 CBC W/AUT O DIFFE RENTI AL mean cell volume 83 fL 78.0-9 8.0 normal Not Available [address] , [place], [address], 12/17/2022 15:34:01 12/18/19 23 12/17/2022 CBC W/AUT O DIFFE RENTI AL mean cell HGB 26.5 pg 25.0-3 5.0 normal Not Available [address] , [place], [address], 12/17/2022 15:34:01 12/18/19 23 12/17/2022 CBC W/AUT O DIFFE RENTI AL mean cell HGB concentratio n 31.9 g/dL 31.0-3 6.0 normal Not Available [address] , [place], [address], 12/17/2022 15:34:01 12/18/19 23 12/17/2022 CBC W/AUT O DIFFE RENTI AL red cell distribution width 15.3 % 11.0-1 5.0 high Not Available [address] [place], [place], [place], [address], 12/17/2022 15:34:01 12/18/19 23 12/17/2022 CBC W/AUT O DIFFE RENTI AL platelet count 242 10e3/ uL 150-40 0 normal Not Available [address] , [place], [address], 12/17/2022 15:34:01 12/18/19 23 12/17/2022 CBC W/AUT O DIFFE RENTI AL immature granulocyte % 0 0-1 normal Not Available [address] , [place], [address], 12/17/2022 15:34:01 12/18/19 23 12/17/2022 CBC W/AUT O DIFFE RENTI AL neutrophil % 59 % 35-75 normal Not Available [address] , [place], [address], 12/17/2022 15:34:01 12/18/19 23 12/17/2022 CBC W/AUT O DIFFE RENTI AL lymphocyte % 30 % 10-50 normal Not Available [address] , [place], [address], 12/17/2022 15:34:01 12/18/19 23 12/17/2022 CBC W/AUT O DIFFE RENTI AL monocyte % 7 % 0-15 normal Not Available [address] , [place], [address], 12/17/2022 15:34:01 12/18/19 23 12/17/2022 CBC W/AUT O DIFFE RENTI AL eosinophil % 2 % 0-5 normal Not Available [address] , [place], [address], 12/17/2022 15:34:01 12/18/19 23 12/17/2022 CBC W/AUT O DIFFE RENTI AL basophil % 2 % 0-5 normal Not Available [address] , [place], [address], 12/17/2022 15:34:01 12/18/19 23 12/17/2022 CBC W/AUT O DIFFE RENTI AL immature granulocyte # 0.02 x1000 /uL 0-0.05 normal Not Available [address] Jessica Bangura, [place], [address], 12/17/2022 15:34:01 12/18/19 23 12/17/2022 CBC W/AUT O DIFFE RENTI AL neutrophil # 4.11 x1000 /uL 1.50-8 .00 normal Not Available [address] Jessica Bangura, [place], [address], 12/17/2022 15:34:01 12/18/19 23 12/17/2022 CBC W/AUT O DIFFE RENTI AL lymphocyte # 2.07 x1000 /uL 1.20-5 .20 normal Not Available [address] Jessica Bangura, [place], [address], 12/17/2022 15:34:01 12/18/19 23 12/17/2022 CBC W/AUT O DIFFE RENTI AL monocyte # 0.52 x1000 /uL 0.40-0 .90 normal Not Available [place] [address], [place], [address], 12/17/2022 15:34:01 12/18/19 23 12/17/2022 CBC W/AUT O DIFFE RENTI AL eosinophil # 0.16 x1000 /uL 0.00-0 .50 normal Not Available [address] Jessica Bangura, [place], [address], 12/17/2022 15:34:01 12/18/19 23 12/17/2022 CBC W/AUT O DIFFE RENTI AL basophil # 0.11 x1000 /uL 0.00-0 .30 normal Not Available [place] [address], [place], [address], 12/17/2022 15:34:01 12/18/19 23 12/17/2022 CBC W/AUT O DIFFE RENTI AL NRBC automated 0.0 /100_ WBC Not Available [address] , [place], [address], 12/17/2022 15:34:01 12/18/19 23 12/17/2022 CBC W/AUT O DIFFE RENTI AL performing lab SEE NOTE ML - [facility] [address] [facility] [address] Not Available [address] , [place], [address], 12/17/2022 15:34:01 12/18/19 23 12/17/2022 RETIC ULOCY TE COUNT note SEE NOTE Order ing Provi gabriela: Agusto de MD Not Available [address] , [place], [address], 12/17/2022 15:34:02 12/18/19 23 12/17/2022 RETIC ULOCY TE COUNT reticulocyte count 1.7 % 0.5-1. 7 normal Not Available [address] , [place], [address], 12/17/2022 15:34:02 12/18/19 23 12/17/2022 RETIC ULOCY TE COUNT absolute retic# 0.088 x10e6 /uL 0.016- 0.078 high Not Available [address] Jessica Bangura, [place], [address], 12/17/2022 15:34:02 12/18/19 23 12/17/2022 RETIC ULOCY TE COUNT performing lab SEE NOTE ML - [facility] [address] [facility] [address] Not Available [address] Jessica Bangura, [place], [address], 12/17/2022 15:34:02 12/18/19 23 12/17/2022 FE W/TOT AL IRON JEFFREY NG CAP note See Note Order ing Provi gabriela: Agusto de MD Not Available [address] , [place], [address], 12/17/2022 16:13:32 12/18/19 23 12/17/2022 FE W/TOT AL IRON JEFFREY NG CAP iron 47 ug/dL 50-170 low Not Available [address] , [place], [address], 12/17/2022 16:13:32 12/18/19 23 12/17/2022 FE W/TOT AL IRON JEFFREY NG CAP total iron binding capacity 263 ug/dL 260-44 5 normal Not Available [address] , [place], [address], 12/17/2022 16:13:32 12/18/19 23 12/17/2022 FE W/TOT AL IRON JEFFREY NG CAP iron saturation 18 % 20-50 low Not Available [address] , [place], [address], 12/17/2022 16:13:32 12/18/19 23 12/17/2022 FE W/TOT AL IRON JEFFREY NG CAP performing lab see note - [facility] R [address] [place] [address] DRIVE [facility] [address] Not Available [address] , [place], [address], 12/17/2022 16:13:32 12/18/19 23 12/17/2022 SASHA TIN note See Note Order ing Provi gabriela: Agusto de MD Not Available [address] , [place], [address], 12/17/2022 16:30:59 12/18/19 23 12/17/2022 SASHA TIN ferritin 257 NG/mL 8-252 high Not Available [address] , [place], [address], 12/17/2022 16:30:59 12/18/19 23 12/17/2022 SASHA TIN performing lab see note - [facility] R [address] [facility] [address] Not Available [address] , [place], [address], 12/17/2022 16:30:59 02/19/20 23 02/18/2023 CBC W/AUT O DIFFE RENTI AL note SEE NOTE Order ing Provi gabriela: Agusto de MD Not Available [address] , [place], [address], 02/18/2023 11:23:48 02/19/20 23 02/18/2023 CBC W/AUT O DIFFE RENTI AL white blood cell 8.9 10e3/ uL 4.5-13 .0 normal Not Available [address] Jessica Bangura, [place], [address], 02/18/2023 11:23:48 02/19/20 23 02/18/2023 CBC W/AUT O DIFFE RENTI AL red blood cell 5.18 10e6/ uL 3.80-5 .10 high Not Available [address] Jessica Bangura, [place], [address], 02/18/2023 11:23:48 02/19/20 23 02/18/2023 CBC W/AUT O DIFFE RENTI AL hemoglobin 13.6 g/dL 11.5-1 5.3 normal Not Available [address] , [place], [address], 02/18/2023 11:23:48 02/19/20 23 02/18/2023 CBC W/AUT O DIFFE RENTI AL hematocrit 43.4 % 34.0-4 6.0 normal Not Available [place] [address], [place], [address], 02/18/2023 11:23:48 02/19/20 23 02/18/2023 CBC W/AUT O DIFFE RENTI AL mean cell volume 84 fL 78.0-9 8.0 normal Not Available [place] [address], [place], [address], 02/18/2023 11:23:48 02/19/20 23 02/18/2023 CBC W/AUT O DIFFE RENTI AL mean cell HGB 26.3 pg 25.0-3 5.0 normal Not Available [address] Jessica Bangura, [place], [address], 02/18/2023 11:23:48 02/19/20 23 02/18/2023 CBC W/AUT O DIFFE RENTI AL mean cell HGB concentratio n 31.3 g/dL 31.0-3 6.0 normal Not Available [place] [address], [place], [address], 02/18/2023 11:23:48 02/19/20 23 02/18/2023 CBC W/AUT O DIFFE RENTI AL red cell distribution width 15.6 % 11.0-1 5.0 high Not Available [address] Jessica Bangura, [place], [address], 02/18/2023 11:23:48 02/19/20 23 02/18/2023 CBC W/AUT O DIFFE RENTI AL platelet count 283 10e3/ uL 150-40 0 normal Not Available [place] [address], [place], [address], 02/18/2023 11:23:48 02/19/20 23 02/18/2023 CBC W/AUT O DIFFE RENTI AL immature granulocyte % 0 0-1 normal Not Available [address] Jesscia Bangura, [place], [address], 02/18/2023 11:23:48 02/19/20 23 02/18/2023 CBC W/AUT O DIFFE RENTI AL neutrophil % 74 % 35-75 normal Not Available [address] Jessica Bangura, [place], [address], 02/18/2023 11:23:48 02/19/20 23 02/18/2023 CBC W/AUT O DIFFE RENTI AL lymphocyte % 18 % 10-50 normal Not Available [address] Jessica Bangura, [place], [address], 02/18/2023 11:23:48 02/19/20 23 02/18/2023 CBC W/AUT O DIFFE RENTI AL monocyte % 6 % 0-15 normal Not Available [address] Jessica Bangura, [place], [address], 02/18/2023 11:23:48 02/19/20 23 02/18/2023 CBC W/AUT O DIFFE RENTI AL eosinophil % 1 % 0-5 normal Not Available [address] Jessica Bangura, [place], [address], 02/18/2023 11:23:48 02/19/20 23 02/18/2023 CBC W/AUT O DIFFE RENTI AL basophil % 1 % 0-5 normal Not Available [address] Jessica Bangura, [place], [address], 02/18/2023 11:23:48 02/19/20 23 02/18/2023 CBC W/AUT O DIFFE RENTI AL immature granulocyte # 0.04 x1000 /uL 0-0.05 normal Not Available [address] Jessica Bangura, [place], [address], 02/18/2023 11:23:48 02/19/20 23 02/18/2023 CBC W/AUT O DIFFE RENTI AL neutrophil # 6.54 x1000 /uL 1.50-8 .00 normal Not Available [place] [address], [place], [address], 02/18/2023 11:23:48 02/19/20 23 02/18/2023 CBC W/AUT O DIFFE RENTI AL lymphocyte # 1.59 x1000 /uL 1.20-5 .20 normal Not Available [address] Jessica Bangura, [place], [address], 02/18/2023 11:23:48 02/19/20 23 02/18/2023 CBC W/AUT O DIFFE RENTI AL monocyte # 0.52 x1000 /uL 0.40-0 .90 normal Not Available [address] Jessica Bangura, [place], [address], 02/18/2023 11:23:48 02/19/20 23 02/18/2023 CBC W/AUT O DIFFE RENTI AL eosinophil # 0.12 x1000 /uL 0.00-0 .50 normal Not Available [place] [address], [place], [address], 02/18/2023 11:23:48 02/19/20 23 02/18/2023 CBC W/AUT O DIFFE RENTI AL basophil # 0.09 x1000 /uL 0.00-0 .30 normal Not Available [place] [address], [place], [address], 02/18/2023 11:23:48 02/19/20 23 02/18/2023 CBC W/AUT O DIFFE RENTI AL NRBC automated 0.0 /100_ WBC Not Available [address] Jessica Bangura, [place], [address], 02/18/2023 11:23:48 02/19/20 23 02/18/2023 CBC W/AUT O DIFFE RENTI AL performing lab SEE NOTE ML - [facility] [address] [place] [address] Not Available [address] , [place], [address], 02/18/2023 11:23:48 02/19/20 23 02/18/2023 FE W/TOT AL IRON JEFFREY NG CAP note See Note Order ing Provi gabriela: Agusto de MD Not Available [address] , [place], [address], 02/18/2023 12:36:42 02/19/20 23 02/18/2023 FE W/TOT AL IRON JEFFREY NG CAP iron 42 ug/dL 50-170 low Not Available [address] , [place], [address], 02/18/2023 12:36:42 02/19/20 23 02/18/2023 FE W/TOT AL IRON JEFFREY NG CAP total iron binding capacity 213 ug/dL 260-44 5 low Not Available [address] Jessica Bangura, [place], [address], 02/18/2023 12:36:42 02/19/20 23 02/18/2023 FE W/TOT AL IRON JEFFREY NG CAP iron saturation 20 % 20-50 normal Not Available [address] , [place], [address], 02/18/2023 12:36:42 02/19/20 23 02/18/2023 FE W/TOT AL IRON JEFFREY NG CAP performing lab see note ML [facility] [address] [place] [address] Not Available [address] , [place], [address], 02/18/2023 12:36:42 05/27/20 23 05/27/2023 FE W/TOT AL IRON JEFFREY NG CAP note See Note Order ing Provi gabriela: Agusto de MD Not Available [address] , [place], [address], 05/27/2023 12:10:20 05/27/20 23 05/27/2023 FE W/TOT AL IRON JEFFREY NG CAP iron 53 ug/dL 50-170 normal Not Available [address] , [place], [address], 05/27/2023 12:10:20 05/27/20 23 05/27/2023 FE W/TOT AL IRON JEFFREY NG CAP total iron binding capacity 237 ug/dL 260-44 5 low Not Available [address] , [place], [address], 05/27/2023 12:10:20 05/27/20 23 05/27/2023 FE W/TOT AL IRON JEFFREY NG CAP iron saturation 22 % 20-50 normal Not Available [address] , [place], [address], 05/27/2023 12:10:20 05/27/20 23 05/27/2023 FE W/TOT AL IRON JEFFREY NG CAP performing lab see note - [facility] R [address] [facility] [address] Not Available [address] , [place], [address], 05/27/2023 12:10:20 05/27/20 23 05/27/2023 SASHA TIN note See Note Order ing Provi gabriela: Agusto de MD Not Available [address] , [place], [address], 05/27/2023 12:33:23 05/27/20 23 05/27/2023 SASHA TIN ferritin 344 NG/mL 8-252 high Not Available [address] , [place], [address], 05/27/2023 12:33:23 05/27/20 23 05/27/2023 SASHA TIN performing lab see note ML - [facility] R [address] [place] [address] Not Available [address] , [place], [address], 05/27/2023 12:33:23 01/04/20 25 12/31/2024 XR, chest , 2 view [facility] [address] [place] [address] Phone: Fax: Name: AMA WALTERS Exam Date: 01/01/20 : [birth year] Age 64 years Gender : F Access ion: [id number] Physic margarito: RAVEN FORD MS Facilmarck ty: [facility] HSV: Outpat ient Exam: CHEST PA AND LAT Chest PA and latera l HISTOR Y: Athero sclero tic heart diseas e COMPAR MELBA: 021 FINDIN GS: 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 No acute consol idatio n or pleura l collec tion. Stents noted in the heart. Athero sclero tic aorta. IMPRES JUNITO: No acute proces s Electr onical ly signed by: Tatiana Reynolds MD 2024 10:15 AM EDT RP Workst ation: [id number] Dictat ed By: TATIANA REYNOLDS Transc ribed By: Transc ribed On: 01/04/20 10:14 AM Electr onical ly signed by: TATIANA REYNOLDS 01/04/20 Thank you for referr ing AMA WALTERS to [facility] Legall y authen ticate d by FRANCINE Sebastian 01-03 10:14: 32 CC'ed Logic: Orderi ng Provid er: LOGAN CARBAJAL Y Attend ing Provid er: LOGAN CARBAJAL Y Referr ing Provid er: LOGAN CARBAJAL Y Admitt ing Provid er: LOGAN CARBAJAL Y [id number] [facility] [address] [facility], [place], [address], 01/03/2025 11:36:20 Result Notes Documentation Provider Name and Address Organization Details Recorded Time Xr, Chest, 2 View : [address] [address] Name: AMA WALTERS Exam Date: 12/31/2024 : 1960 Age 64 years Gender: F Physician: SIVAKUMAR DESAI Facility: [facility] HSV: Outpatient Exam: CHEST PA AND LAT Chest PA and lateral HISTORY: Atherosclerotic heart disease COMPARISON: 04/19/2021 FINDINGS: Mild kyphosis and DJD. No acute consolidation or pleural collection. Stents noted in the heart. Atherosclerotic aorta. IMPRESSION: No acute process Electronically signed by: Tatiana Reynolds MD 01/03/2025 10:15 AM EDT Dictated By: TATIANA REYNOLDS Transcribed By: Transcribed On: 01/03/2025 10:14 AM Electronically signed by: TATIANA REYNOLDS 01/03/2025 Thank you for referring AMA WALTERS to [facility]. Legally authenticated by FRANCINE Sebastian 2025-01-03 10:14:32 CC'ed Logic: Ordering Provider: LLOYD SHAVER Attending Provider: LLOYD SHAVER Referring Provider: LLOYD SHAVER Admitting Provider: LLOYD [facility], [place] - [facility] & [place] 01/03/2025 11:36:20 Problems Name Problem SNOMED Code Status Onset Date Resolution Date Notes Provider Name and Address Organization Details Recorded Time Iron deficiency anemia 93613915 Active 2022 Adams Velez MD [address] [place], [place] [address], [place], [address], [place] - [facility] - [place] & [place] 3 15:23:56 Gastroesophage al reflux disease without esophagitis 858131236 Active 2022 Adams Velez MD [address] [place] [address],[address], [place], [address], [place] - [facility] - [place] & [place] 3 16:33:33 Problem Notes None recorded. Procedures Surgical History Date Name Laterality Status Provider Name and Address Organization Details Recorded Time 10/14/19 23 EGD/Endoscopy completed Ronal Dasgieri ISAI - [facility] - [place] & [place] 12/17/2022 14:01:49 10/14/19 Colonoscopy completed Ronal Dasgieri ISAI - [facility] - [place] & [place] 12/17/2022 14:01:59 03/02/20 18 Colonoscopy completed Ronal Dasgieri ISAI - [facility] & [place] 10/08/2022 08:38:24 procedure on hand completed Ronal Dasgieri ISAI - [facility] - [place] & [place] 10/08/2022 08:36:38 Appendectomy completed Ronal Dasgieri ISAI - [facility] - [place] & [place] 10/08/2022 08:36:44 cardiac catheterization completed Ronal Dasgieri ISAI - [facility] - [place] & [place] 10/08/2022 08:36:57 Imaging Results None recorded. Procedure Notes None recorded. Medical Equipment None Reported. Allergies Allergen ID Allergen Name Allergen Category Reaction Reaction Severity Criticality Documentation Date Start Date Code Code System Note Provider Name and Address Organization Details Recorded Time 09229 codeine medicatio n Not available Not available Not available 10/08/2022 2670 RxNorm Ronal Dasalem arteaga, ISAI - [facility] & [place] 3 08:32:17 Medications Name Sig Start Date Stop Date Status Note LastModified by Organization Details LastModified Time cyclobenzap rine 10 mg tablet TAKE ONE TABLET BY MOUTH TWICE DAILY FOR SPASMS active Not Available Not Available No t Available furosemide 40 mg tablet TAKE 1 TABLET BY MOUTH ONCE DAILY active Not Available Not Available No t Available atorvastati n 80 mg tablet TAKE 1 TABLET BY MOUTH ONCE DAILY FOR LIPIDS active Not Available Not Available No t Available carvedilol 25 mg tablet TAKE 1 TABLET BY MOUTH TWICE DAILY active Not Available Not Available No t Available nystatin 100,000 unit/mL oral suspension active Not Available Not Available N ot Available ropinirole 1 mg tablet TAKE 1 TABLET EVERY DAY AND THEN TAKE 2 EVERY NIGHT. (TOTAL OF 3 FOR A DAY) active Not Available Not Available No t Available Iron (ferrous sulfate) 325 mg (65 mg iron) tablet Take 1 tablet every day by oral route. active Not Available Not Available No t Available glyburide 5 mg tablet Take 1 tablet every day by oral route for 90 days. active Not Available Not Available No t Available tizanidine 4 mg tablet Take 1 tablet every day by oral route for 14 days. 12/17 completed Not Available Not Available Not Available phenazopyri dine 200 mg tablet 10/08 completed Not Available Not Available Not Available famotidine 40 mg tablet TAKE 1 TABLET EVERY DAY BY ORAL ROUTE FOR 30 DAYS. active Not Available Not Available No t Available dexamethaso ne 6 mg tablet Take 1 tablet every day by oral route for 5 days. 12/17 completed Not Available Not Available Not Available clopidogrel 75 mg tablet TAKE 1 TABLET BY MOUTH DAILY FOR CORONARY ARTERY DISEASE active Not Available Not Available No t Available sulfamethox azole 800 mg-trimetho prim 160 mg tablet 10/08 completed Not Available Not Available Not Available aspirin 81 mg tablet,mayelin yed release Take 1 tablet every day by oral route. active Not Available Not Available No t Available isosorbide mononitrate ER 120 mg tablet,exte nded release 24 hr TAKE ONE TABLET BY MOUTH DAILY FOR CHRONIC CHEST PAIN active Not Available Not Available No t Available levothyroxi ne 100 mcg tablet Take 1 tablet every day by oral route in the evening for 90 days. 10/08 completed Not Available Not Available Not Available famotidine 20 mg tablet TAKE 1 TABLET BY MOUTH DAILY FOR FOR HEARTBURN active Not Available Not Available No t Available doxycycline monohydrate 100 mg capsule 10/08 completed Not Available Not Available Not Available glipizide ER 2.5 mg tablet, extended release 24 hr TAKE 1 TABLET BY MOUTH ONCE DAILY active Not Available Not Available No t Available ropinirole 2 mg tablet TAKE ONE TABLET BY MOUTH THREE TIMES DAILY FOR RESTLESS LEG active Not Available Not Available No t Available losartan 25 mg tablet TAKE 1 TABLET BY MOUTH ONCE DAILY FOR HIGH BLOOD PRESSURE active Not Available Not Available No t Available oxybutynin chloride ER 5 mg tablet,exte nded release 24 hr TAKE 1 TABLET BY MOUTH DAILY FOR FOR BLADDER PAIN active Not Available Not Available No t Available lisinopril 5 mg tablet Take 1 tablet every day by oral route in the evening for 30 days. active Not Available Not Available No t Available Baby Aspirin 81 mg chewable tablet Chew 1 tablet every day by oral route. active Not Available Not Available No t Available mupirocin 2 % topical ointment active Not Available Not Available Not Available ergocalcife rol (vitamin D2) 1,250 mcg (50,000 unit) capsule TAKE ONE CAPSULE BY MOUTH ONCE A WEEK active Not Available Not Available No t Available hydroxychlo roquine 200 mg tablet Take 1 tablet every day by oral route for 30 days. active Not Available Not Available No t Available levofloxaci n 750 mg tablet 12/17 completed Not Available Not Available Not Available albuterol sulfate HFA 90 mcg/actuati on aerosol inhaler INHALE 2 PUFFS BY MOUTH EVERY 6 HOURS NEEDED FOR BRONCHOSP ASM active Not Available Not Available No t Available sertraline 50 mg tablet TAKE 1 TABLET BY MOUTH ONCE DAILY active Not Available Not Available No t Available doxycycline hyclate 100 mg tablet Take 1 tablet every day by oral route for 7 days. 10/08 completed Not Available Not Available Not Available loratadine 10 mg tablet 10/08 completed Not Available Not Available Not Available levothyroxi ne 112 mcg tablet TAKE 1 TABLET BY MOUTH ONCE DAILY active Not Available Not Available No t Available ezetimibe 10 mg tablet Take 1 tablet every day by oral route for 90 days. active Not Available Not Available No t Available nitrofurant oin monohydrate /macrocryst als 100 mg capsule Take 1 capsule by oral route for 7 days. 10/08 completed Not Available Not Available Not Available pregabalin 150 mg capsule 10/08 completed Not Available Not Available Not Available pregabalin 200 mg capsule TAKE 1 CAPSULE BY MOUTH TWICE A DAY FOR NEUROPATH Y active Not Available Not Available No t Available Suprep Bowel Prep Kit 17.5 gram-3.13 gram-1.6 gram oral solution take as per instructi ons 12/17 completed Not Available Not Available Not Available Tradjenta 5 mg tablet TAKE 1 TABLET BY MOUTH ONCE DAILY FOR DIABETES active Not Available Not Available No t Available Bellaire DMT 30 mg-30 mg tablet Take 1 tablet every day by oral route for 5 days. 12/17 completed Not Available Not Available Not Available cyanocobala min (vitamin B-12) 1,000 mcg capsule Take 1 capsule every day by oral route. 12/17 completed Not Available Not Available Not Available FreeStPlanspot Frannie 14 Day Sensor kit USE FOR GLUCOSE MONITORIN G; CHANGE EVERY 14 DAYS active Not Available Not Available No t Available Mounjaro 5 mg/0.5 mL subcutaneou s pen injector INJECT 5MG UNDER THE SKIN ONCE WEEKLY active Not Available Not Available No t Available Mounjaro 2.5 mg/0.5 mL subcutaneou s pen injector INJECT 2.5 MG (0.5 ML) SUBCUTANE OUSLY WEEKLY FOR DIABETES MELLITUS active Not Available Not Available No t Available Vitals Date Recorded Heart rate Body temperature Systolic And Diastolic Provider Name and Address Organization Details Last Updated DateTime 10/08/2022 84 /min 98.7 [degF] 98/59 mm[Hg] mirella yuan [facility] & [place] 10/08/2022 14:55:13 Date Recorded Body height Body mass index (BMI) Body weight Body temperature Heart rate Respiratory rate Systolic And Diastolic Provider Name and Address Organization Details Last Updated DateTime 3 172.72 cm 40.7 kg/m2 865069. 32 g 97.9 [degF] 75 /min 18 /min 124/74 mm[Hg] Ronal ALEX [facility] & [place] 3 14:00:04 Date Recorded Body height Body mass index (BMI) Body weight Body temperature Heart rate Respiratory rate Systolic And Diastolic Provider Name and Address Organization Details Last Updated DateTime 3 172.72 cm 37.6 kg/m2 550314. 03 g 97.9 [degF] 76 /min 18 /min 102/63 mm[Hg] Ronal ALEX [facility] & [place] 15:37:13 Social History Question Answer Notes LastModified by Organizat ion Details LastModified Time Tobacco Smoking Status Never Smoker Ronal arteaga ISAI Joiner [facility] & [place] 10/08/2022 08:34:22 What Is Your Level Of Caffeine Consumption? Moderate Information not available 10/08/2022 What Type Of Diet Are You Following? DIABETIC Information not available 10/08/2022 Sex: Unknown Functional Status Question Answer Note LastModified by Organizat ion Details LastModified Time Do you use any illicit or recreational drugs? No Information not available 12/17/2022 What is your level of alcohol consumption? None Information not available 10/08/2022 What is your exercise level? None Information not available 10/08/2022 Mental Status None recorded. Family History Relationship Description Onset Age of this Age Resolved Age Notes LastModified by Organization Details LastModified Time Mother Diabetes mellitus [email or web address] Not available 2022 08:33:31 Mother Hypertensive disorder [email or web address] Not available 2022 15:38:10 Father Heart disease [email or web address] Not available 2022 08:33:50 Father Hypertensive disorder [email or web address] Not available 2022 15:38:10 Medical History Condition Response Coronary Artery Disease Y None N Gout N Colon Cancer N Kidney Stones N Hyperthyroidism N Depression Y COPD N Hypothyroidism Y Osteoporosis/Osteopenia N Diverticulitis/Diverticulosis N Colon Polyps Y Anxiety Disorder N Diabetes Y Bleeding Disorder N Arthritis Y Seizures/Epilepsy N Tuberculosis N Hyperlipidemia Y Cancer N Stroke N Asthma N Sleep Apnea Y GERD/Reflux Y Hepatitis N Cirrhosis N Liver Disease N Heart Disease Y Hypertension Y Kidney Disease N Gynecological HistoryNo gynecological history recorded. Obstetrics History GPAL:G 0 P 0 0 0 0 Immunizations Vaccine Type Date Status Note Provider Nam e and Address Organization Details Recorded Time influenza, unspecified formulation 07/02/2022 completed Ronal arteaga ISAI Joiner [facility] [place] 10/08/2022 08:33:01 Past Encounters Encounter ID Performer Location Encounter Start Date Encounter Closed Date Diagnosis/Indication Diagnosis SNOMED-CT Code Diagnosis ICD10 Code Diagnosis IMO Codes Diagnosis Note [id number] Adams Velez MD [facility] [address] [place] [phone] 10/08/2022 14:34:09 10/08/2022 15:49:34 Iron deficiency anemia 80691534 D50.9 By history the patient has iron deficiency anemia was recently started on iron replacemen t. With this in mind the patient will need both an EGD, and colonoscop y. Will do lab work below to confirm that the iron deficiency anemia is present, if not we will alter the patient's plan. Continue current therapy without change, will need a Plavix 5 day hold preprocedu re [id number] Adams Velez MD [facility] [address] [place] [address],[address] [place] [phone] 12/17/2022 13:38:24 12/17/2022 14:30:27 Iron deficiency anemia [id number] D50.9 The patient's iron deficiency anemia has been evaluated by upper and lower endoscopy without obvious source of GI blood loss identified . Small-milan l biopsies were likewise normal patient has been on iron supplement ation, and we will check a CBC, iron and reticulocy te count. If the patient's anemia is responding to iron supplement ation continue iron until iron is fully repleted. If the patient's anemia is not responding to iron supplement ation additional Recommenda tions may follow History of polyp of colon [id number] Z86.010 follow-up colonoscop y 12 months based on poor prep [id number] Adams Velez MD [facility] [address] [place] [address],[address] [place] [phone] 05/15/2023 14:19:40 05/15/2023 16:37:34 Iron deficiency anemia [id number] D50.9 Hemoglobin normal, check iron studies with patient offer iron for 1 week if iron and ferritin normalized discontinu e iron and recheck in 2-3 months. If iron deficiency persists continue iron Gastroesop hageal reflux disease without esophagitis [id number] K21.9 increasing heartburn symptomato logy almost certainly related to the recently initiated Mounjaro, will increase the patient's famotidine to 40 mg a day, however the patient's increased reflux symptoms persist would suggest an alternativ e agent for her diabetes Health Concerns Section Related Observation LastModified by Organization Leia corcoran LastModified Time None Recorded Concern Status LastModified by Organization Details LastModified Time None Recorded Advance Directives Directive None Recorded Payers Insurance Date Sequence Insurance Name Policy Number Policy Robledo Covered Member ID Robledo Member ID Guarantor Name 05/17/2019 1 *SELF PAY* Do marlys Walters 05/12/2023 1 [place] [id number] Ama Walters [id number] Ama Walters Notes Date Note Type Note Provider Name and Address Organization Details Recorded Time 10/08/2022 text/html This is a 62-year-old female who is brought into the office to investigate issues reported on an open access colonoscopy question air. The patient is due for colonoscopy for screening/surveillanc e purposes, but on the questionnaire reported that she was having black tarry bowel movements. On questioning further this appears to be related to the initiation of iron. The patient notes that she was told recently by her primary provider that she was iron deficient, they started her on iron replacement. She denies any bright red blood per rectum, she had no dark stools prior to the initiation of iron. The patient is on a blood thinner in the form of Plavix. The patient denies any abdominal pain, no change in bowel habits no diarrhea or Constipation. Adams Velez MD [address] [place] [address],[address], [place], [address], [facility] 10/08/2022 15:35:53 12/17/2022 text/html routine follow-upfor this patient regarding iron deficiency anemia. Patient underwent EGD and colonoscopy to evaluate this. The patient's colonoscopy demonstrated diverticular disease as well as a single polyp that was precancerous in nature and removed in its entirety. The patient's prep was suboptimal in a follow-up colonoscopy 12 months is recommended. Her upper endoscopy demonstrated superficial irritation of the stomach lining, but no other pathology. The patient has been on iron supplementation since her procedure. Presents in follow-up. She denies any melena or bright red blood per rectum, denies any weakness, malaise or fatigue. Adams Velez MD [address] [place] [address],[address], [place], [address], [facility] 12/17/2022 14:30:17 05/15/2023 text/html This 62-year-old female presents in follow-up regarding iron deficiency anemia. The patient had a CBC from April that shows normalization of her hemoglobin, the patient is at this time continuing on iron. She notes that she is begun to have some problems with heartburn, this began approximately 3-4 weeks ago this is when the patient started taking a new medicine for her diabetes Mounjaro . Adams Velez MD [address] [place] [address],[address], [place], [address], [place] - [facility] - [place] & [place] 05/15/2023 16:40:49 OBGyn Episode No OBEpisode recorded.
--- OUTSIDE RECORDS SUMMARY | 2025-06-25 14:28 | XMS_ITS | Encounter Summary ---
Author Organization [facility] Address [address] [place] [address] Care Team Providers Care Creative Guru Name Role Phone Unavailable Primary Care Provider [...] HEMOGLOBIN A1C (06/08/2024) Hemoglobin A1C 5.5 % Comment:[facility] us Historical Provider HEALTH MAINTENANCE Final Result documented in this encounter Visit Diagnoses Not on filedocumented in this encounter
--- OUTSIDE RECORDS SUMMARY | 2025-06-25 14:28 | XMS_ITS | Clinical Summary ---
Author Organization [facility] Address [address] [place] [address] Care Team Providers Care Soft Boarder Name Role Phone Unavailable Primary Care Provider [...]
[2025-06-25 14:30] VITALS: BP 147/79; RESP 12
--- NOTE | 2025-06-25 14:42 | CT_ITS ---
PROCEDURE INFORMATION: Exam: CT Head Without Contrast Exam date and time: 06/25/2025 2:49 PM Age: 64 years old Clinical indication: Stroke-like symptoms; Other: Possible stroke, right facial droop, headache TECHNIQUE: Imaging protocol: Computed tomography of the head without contrast. Radiation optimization: All CT scans at this facility use at least one of these dose optimization techniques: automated exposure control; mA and/or kV adjustment per patient size (includes targeted exams where dose is matched to clinical indication); or iterative reconstruction. Other technique: STROKE PROTOCOL was implemented. COMPARISON: No relevant prior studies available. FINDINGS: Brain: Central and cortical brain atrophy evident, appropriate for patient age. There is nonspecific periventricular low attenuation, likely microangiopathic disease. No acute intracranial hemorrhage. Cerebral ventricles: No ventriculomegaly. Paranasal sinuses: Visualized sinuses are unremarkable. No fluid levels. Mastoid air cells: Visualized mastoid air cells are well aerated. Bones: Unremarkable. No acute fracture. Soft tissues: Unremarkable. IMPRESSION: No acute intracranial abnormality. ASSESSMENT: ASPECTS ([place] Stroke Program Early CT Score) is 10.
--- NOTE | 2025-06-25 14:42 | CT_ITS ---
PROCEDURE INFORMATION: Exam: CTA Head With Contrast, Arteriography Exam date and time: 06/25/2025 2:51 PM Age: 64 years old Clinical indication: Stroke-like symptoms; Other: Possible stroke, right facial droop, headache TECHNIQUE: Imaging protocol: Computed tomographic angiography of the head with contrast. Exam focused on the arteries. 3D rendering (Not supervised by radiologist): MIP and/or 3D reconstructed images were created by the technologist. Radiation optimization: All CT scans at this facility use at least one of these dose optimization techniques: automated exposure control; mA and/or kV adjustment per patient size (includes targeted exams where dose is matched to clinical indication); or iterative reconstruction. Contrast material: ISO 370; Contrast volume: 80 ml; Contrast route: INTRAVENOUS (IV); COMPARISON: CT HEAD/BRAIN WO CON 06/25/2025 2:49 PM FINDINGS: ANTERIOR CIRCULATION: Right internal carotid artery: Intracranial segment is patent with no significant stenosis. No aneurysm. Right middle cerebral artery: No occlusion or significant stenosis. No aneurysm. Right anterior cerebral artery: No occlusion or significant stenosis. No aneurysm. Left internal carotid artery: Intracranial segment is patent with no significant stenosis. No aneurysm. Left middle cerebral artery: No occlusion or significant stenosis. No aneurysm. Left anterior cerebral artery: No occlusion or significant stenosis. No aneurysm. POSTERIOR CIRCULATION: Right vertebral artery: No occlusion or significant stenosis. No aneurysm. Left vertebral artery: No occlusion or significant stenosis. No aneurysm. Basilar artery: No occlusion or significant stenosis. No aneurysm. Right posterior cerebral artery: No occlusion or significant stenosis. No aneurysm. Left posterior cerebral artery: No occlusion or significant stenosis. No aneurysm. Brain: No definite mass, mass effect, or midline shift. Cerebral ventricles: No ventriculomegaly. Bones/joints: Unremarkable. No acute fracture. Soft tissues: Unremarkable. IMPRESSION: No large vessel stenosis or occlusion.
--- NOTE | 2025-06-25 14:42 | CT_ITS ---
PROCEDURE INFORMATION: Exam: CTA Neck With Contrast Exam date and time: 06/25/2025 2:51 PM Age: 64 years old Clinical indication: Stroke-like symptoms; Other: Possible stroke, right facial droop, headache TECHNIQUE: Imaging protocol: Computed tomographic angiography of the neck with contrast. Exam focused on the cervical segments of the vasculature. 3D rendering (Not supervised by radiologist): MIP and/or 3D reconstructed images were created by the technologist. Radiation optimization: All CT scans at this facility use at least one of these dose optimization techniques: automated exposure control; mA and/or kV adjustment per patient size (includes targeted exams where dose is matched to clinical indication); or iterative reconstruction. Contrast material: ISO 370; Contrast volume: 80 ml; Contrast route: INTRAVENOUS (IV); COMPARISON: CT HEAD/BRAIN WO CON 06/25/2025 2:49 PM FINDINGS: Right common carotid artery: No stenosis. No dissection or occlusion. Right internal carotid artery: Less than 50% stenosis right proximal ICA. Right external carotid artery: No occlusion or stenosis of the origin. Left common carotid artery: No stenosis. No dissection or occlusion. Left internal carotid artery: Less than 50% stenosis left proximal ICA. Left external carotid artery: No occlusion or stenosis of the origin. Right vertebral artery: No stenosis. No dissection or occlusion. Left vertebral artery: No stenosis. No dissection or occlusion. Soft tissues: Normal. No significant soft tissue swelling. Bones/joints: No acute fracture. IMPRESSION: 1. Less than 50% stenosis right proximal ICA. 2. Less than 50% stenosis left proximal ICA. REFERENCES: NASCET CRITERIA. The degree of stenosis in the cervical segment of the internal carotid artery is based on NASCET criteria. Normal is no stenosis. Mild is less than 50% stenosis. Moderate is 50-69% stenosis. Severe is 70% to 99% stenosis. Total occlusion is no detectable patent lumen.
--- NOTE | 2025-06-25 14:44 | HMH.EDGENADL ---
Discharge Plan Disposition Chief Complaint: Neuro Symptoms/Deficit Prescriptions Prescriptions: No Action amitriptyline 25 mg tablet 25 mg PO HS famotidine 20 mg tablet 20 mg PO DAILY Qty: 30 5RF sertraline 50 mg tablet 50 mg PO DAILY aspirin [Adult Low Dose Aspirin] 81 mg tablet,delayed release (DR/EC) 81 mg PO DAILY albuterol sulfate [ProAir HFA] 90 mcg/actuation HFA aerosol inhaler 1 puff inhalation Q4-6H PRN (Reason: Shortness Of Breath) cyclobenzaprine 10 mg tablet 10 mg PO TIDP PRN (Reason: muscle spasms) ropinirole 3 mg tablet 3 mg PO DAILY Patient Comments: TAKE TWO TABLETS BY MOUTH ONCE DAILY IN THE EVENING lidocaine 5 % adhesive patch,medicated 1 patch topical Q24H Patient Comments: APPLY 1 PATCH AND LEAVE ON FOR 12 HRS THEN OFF 12 HRS DAILY oxybutynin chloride 5 mg tablet extended release 24hr 5 mg PO ONCE Patient Comments: TAKE 1 TABLET BY MOUTH ONCE DAILY ergocalciferol (vitamin D2) 1,250 mcg (50,000 unit) capsule 1,250 mcg PO WEEKLY Patient Comments: TAKE ONE CAPSULE BY MOUTH ONCE A WEEK {Q1W2} pregabalin 200 mg capsule 200 mg PO BID Patient Comments: TAKE ONE CAPSULE BY MOUTH TWICE A DAY Tradjenta 5 mg tablet 5 mg PO DAILY Rybelsus 7 mg tablet 7 mg PO ONCE atorvastatin 80 mg tablet 80 mg PO DAILY Qty: 90 3RF clopidogrel 75 mg tablet 75 mg PO DAILY Qty: 90 4RF Rx Instructions: stents placed 2019 nitroglycerin 0.4 mg tablet, sublingual 0.4 mg SUBLINGUAL Q5M PRN (Reason: Chest Pain) Qty: 30 2RF levothyroxine 100 MCG tablet 100 mcg PO DAILY Referrals Follow up/Referrals: Alberto Paula APRN [Primary Care Provider, Medical] - See instructions Print Language Print Language: Fijian Discharge ED Provider: Cesar Nguyen General Adult HPI General Chief complaint: Neuro Symptoms/Deficit Stated complaint: drooping face right side Time Seen by Provider: 06/25/25 14:26 History of Present Illness HPI narrative: Patient is a 64-year-old female with past medical history of snj-sgbdmxm-dashrxkjl diabetes, hyperlipidemia, hypertension, coronary artery disease status post stenting x 8 who is on antiplatelet therapy who presents to the emergency department for evaluation of facial droop. Onset was acute, occurring patient had weakness in her right face with some tingling over her right face with associated right ear discomfort. No rash, no extremity weakness no gait changes. She has visual blurriness in the setting of inability to blink completely on the right. She presented to urgent care which thought it may be Shannon's palsy but sent her here for continued evaluation. There is an associated vague global headache. No other acute complaints at this time. No trauma. Please note that above description of symptoms, in this electronic medical record under categorization of recalled from ER triage doctor by RN are reflective of an initial nursing assessment, however, is not reflective of my full history and physical exam that was personally taken and clarified. Consequentially, this preceding description of symptoms, which may include the patient's categorized chief complaint in the EMR, do not reflect my personal clinical impression, and the ultimate description of history of present illness and patient stated complaints should be deferred to this section of the note. Unless stated otherwise or congruent with this section of the note, additional signs, symptoms, or incongruence should be interpreted as inaccurate with my clinical impression. Related Data Home Medications ?Medication ?Instructions ?Recorded ?Confirmed albuterol sulfate 90 mcg/actuation 1 puff inhalation Q4-6H PRN 09/25/17 06/08/25 aerosol inhaler (ProAir HFA) Shortness Of Breath aspirin 81 mg tablet,delayed 81 mg PO DAILY Heart disease 09/25/17 06/08/25 release (Adult Low Dose Aspirin) amitriptyline 25 mg tablet 25 mg PO HS mood 03/17/20 06/08/25 cyclobenzaprine 10 mg tablet 10 mg PO TIDP PRN muscle spasms 03/16/21 06/08/25 levothyroxine 100 mcg tablet 100 mcg PO DAILY hypothyroidism 04/11/21 06/08/25 sertraline 50 mg tablet 50 mg PO DAILY 06/28/22 06/08/25 ergocalciferol (vitamin D2) 1,250 1,250 mcg PO WEEKLY 06/08/25 06/08/25 mcg (50,000 unit) capsule lidocaine 5 % topical patch 1 patch topical Q24H 06/08/25 06/08/25 linagliptin 5 mg tablet (Tradjenta) 5 mg PO DAILY 06/08/25 06/08/25 oxybutynin chloride 5 mg 5 mg PO ONCE 06/08/25 06/08/25 tablet,extended release 24 hr pregabalin 200 mg capsule 200 mg PO BID 06/08/25 06/08/25 ropinirole 3 mg tablet 3 mg PO DAILY 06/08/25 06/08/25 semaglutide 7 mg tablet (Rybelsus) 7 mg PO ONCE 06/08/25 06/08/25 Previous Rx's ?Medication ?Instructions ?Recorded famotidine 20 mg tablet 20 mg PO DAILY acid reflux #30 tabs 05/24/21 atorvastatin 80 mg tablet 80 mg PO DAILY Cholesterol #90 tabs 06/08/25 clopidogrel 75 mg tablet 75 mg PO DAILY PLATELET INHIBITOR 06/08/25 #90 tabs nitroglycerin 0.4 mg sublingual 0.4 mg sublingual Q5M PRN Chest 06/08/25 tablet Pain #30 tabs Allergies Allergy/AdvReac Type Severity Reaction Status Date / Time codeine (CODEINE) Allergy Unknown I-RASH Verified 06/08/25 10:47 [facility] Disclaimer: The information contained in this section may have been updated after the patient was seen, as this information can be updated by other users. Medical History (Updated 06/08/25 @ 11:21 by Naomy Muller APRN) Edema HLD (hyperlipidemia) HTN (hypertension) CAD (coronary artery disease) Surgical History History of coronary artery stent placement Social History Smoking Status: Never smoker alcohol intake: never substance use type: denies use current occupational status: disabled Travel in the last 8 weeks?: Inside the [place] household members: spouse housing: house Have you lived/traveled outside US in past 30 days?: No Contact w/someone who lives/traveled outside US past 30 days?: No Exposure to someone with infectious disease in past 14 days?: No Do you have a fever (greater than 100.4 F or 38 C)?: No Have you tested positive for COVID-19?: No Exposed to someone with COVID-19 in past 14 days?: No Do you have a sore throat?: No Do you have a cough?: No Do you have any weakness?: No Do you have any diarrhea?: No Are you experiencing any unusual bleeding?: No Do you have any muscle aches/pain?: No Do you have any abdominal pain?: No Are you experiencing loss of taste or smell?: No Other Medical History Have you received the Flu Vaccine for this season: No Have you received the Pneumonia Vaccine: No ROS Obtained: Yes Systems reviewed as appropriate & no additional complaints except as documented Physical Exam General General appearance: alert and in no apparent distress Head Head exam: atraumatic and normocephalic Eye Eye exam: Present PERRL, EOMI and conjunctival injection (Right-sided without purulent exudate) ENT ENT exam: Present mucous membranes moist and TM's normal bilaterally Neck Neck exam: Present normal inspection Chest Chest inspection: Present normal inspection and symmetric chest wall rise Respiratory Respiratory exam: Present normal lung sounds bilaterally; Absent respiratory distress Cardiovascular Cardiovascular exam: Present regular rate and normal rhythm Abdominal Exam Abdominal exam: Present soft; Absent tenderness Extremities Exam Extremities exam: Present normal inspection Neurological Exam Neurological exam: Present alert, oriented X3 and other (Right facial droop with partial involvement of the brow but is still able to furlough, incomplete blinking, right lower face full droop.); Absent CN II-XII intact Psychiatric Psychiatric exam: Present normal affect Skin Skin exam: Present warm and dry Medical Decision Making Medical Records Screening: Per USPSTF and CDC recommendations, given the prevalence of disease in our region, it is our hospital?s policy to screen for HIV and viral Hepatitis for all patients aged 18 and over and those with ongoing risk factors. Chandu Inquiry Pt receiving controlled substance: No Vital Signs: 06/25/25 14:21 06/25/25 14:27 06/25/25 14:30 Temperature 98.1 F Temperature Source Oral Pulse Rate 65 Pulse Rate [Left] 73 Respiratory Rate 14 12 Blood Pressure 139/101 H 147/79 H Blood Pressure [Right Arm] 139/101 H Blood Pressure Mean [Right Arm] 113 Blood Pressure Source [Right Arm] Automatic Cuff Blood Pressure Position [Right Arm] Sitting 02 Sat by Pulse Oximetry 100 100 Oxygen Delivery Method Room Air Room Air Room Air 06/25/25 15:01 Temperature Temperature Source Pulse Rate 68 Pulse Rate [Left] Respiratory Rate 16 Blood Pressure 173/66 H Blood Pressure [Right Arm] Blood Pressure Mean [Right Arm] Blood Pressure Source [Right Arm] Blood Pressure Position [Right Arm] 02 Sat by Pulse Oximetry 100 Oxygen Delivery Method Room Air Lab Data Lab Results 06/25/25 14:32: WBC 6.8, RBC 5.48 H, Hgb 15.6, Hct 48.1 H, MCV 87.8, MCH 28.5, MCHC 32.4, RDW 13.5, Plt Count 263, MPV 10.1, Neut % (Auto) 62.3, Lymph % (Auto) 26.4, [place] % (Auto) 7.1, Eos % (Auto) 2.4, Baso % (Auto) 1.5, Neut # (Auto) 4.2, Lymph # (Auto) 1.8, [place] # (Auto) 0.5, Eos # (Auto) 0.2, Baso # (Auto) 0.1, PT 10.8, INR 0.97, APTT 25.9, Sodium 138, Potassium 4.5, Chloride 102, Carbon Dioxide 31 H, Anion Gap 9.5, BUN 18 H, Creatinine 0.80, Estimated Creat Clear 79, Estimated GFR 72, Est GFR ( Amer) 87, Glucose 103 H, Calcium 8.7, Total Bilirubin 0.8, AST 38 H, ALT 20, Alkaline Phosphatase 118, Troponin I < 0.01, Total Protein 8.4 H, Albumin 4.5, Globulin 3.9 H, Albumin/Globulin Ratio 1.2, Triglycerides 274 H, Cholesterol 221 H, LDL Cholesterol Direct 98.00 L, VLDL Cholesterol 55 H, HDL Cholesterol 56, Cholesterol/HDL Ratio 3.9 H, Plasma/Serum Alcohol < 10 06/25/25 14:32 06/25/25 14:32 Orders (Tests/Meds): ED MEDICATIONS Generic Name Dose Route Start Last Admin Trade Name Freq PRN Reason Stop Dose Admin Sodium Chloride 10 ml 06/25/25 14:41 Sodium Chloride 0.9% 10ml Flush Syringe IV 07/25/25 14:40 NEEDED PRN Maintain IV Site Discontinued Medications Generic Name Dose Route Start Last Admin Trade Name Freq PRN Reason Stop Dose Admin Artificial Tears 0 ml 06/25/25 15:05 06/25/25 15:07 Artificial Tears Soln 15ml Bottle OP 06/25/25 15:06 1 drp ONCE ONE Administration Iopamidol 80 ml 06/25/25 14:48 06/25/25 14:49 Iopamidol-370 (76%);100ml Bottle IV 06/25/25 14:49 80 ml ONCE ONE Administration Sodium Chloride 50 ml 06/25/25 14:48 06/25/25 14:49 0.9 % Sodium Chloride 50 Ml Vial IV 06/25/25 14:49 50 ml ONCE ONE Administration Sodium Chloride 10 ml 06/25/25 14:48 06/25/25 14:49 Sodium Chloride 0.9% 10ml Syr (Rad Only) IV 06/25/25 14:49 10 ml ONCE ONE Administration ORDERS Category Date Time Status CT angio head Stat Cat Scan 06/25/25 14:[address] angio neck Stat Cat Scan 06/25/25 14:[address] head/brain wo con Stat Cat Scan 06/25/25 14:42 Completed Activated Partial Thrombo Time Stat Lab 06/25/25 14:32 Completed Complete Blood Count Auto Diff Stat Lab 06/25/25 14:32 Completed Comprehensive Metabolic Panel Stat Lab 06/25/25 14:32 Completed Drug Screen,Urine Stat Lab 06/25/25 14:42 Ordered Ethyl Alcohol Stat Lab 06/25/25 14:32 Completed HIV Combo Stat Lab 06/25/25 14:32 Received Hepatitis C Ab Qual. W/ RFX Stat Lab 06/25/25 14:32 Received Lipid Panel Stat Lab 06/25/25 14:32 Completed Prothrombin Time INR Stat Lab 06/25/25 14:32 Completed Troponin I Q3H Lab 06/25/25 17:45 Ordered Troponin I Q3H Lab 06/25/25 20:45 Ordered Troponin I Stat Lab 06/25/25 14:32 Completed Urinalysis and Microscopic Stat Lab 06/25/25 14:42 Ordered ECG Data Tracing #1: Independently interpreted by me rate 62, rhythm is regular, axis is normal, no ST elevation in anatomical contiguous leads, QTc 443. Medical Decision Narrative: In summary patient is 64-year-old female with past medical history of scrota above presents emergency department for evaluation of right facial droop. Patient is hemodynamically stable nontoxic-appearing upon arrival, afebrile. Patient does have right facial droop but does have partial involvement of the brow which muddy the picture is differential includes CVA versus incomplete Shannon's palsy. Patient does not have any cerebellar signs or symptoms and no focal extremity weakness on exam workup we conducted with hematologic labs EKG noncontrasted CT scan of the head CTA of the head and neck. I suspect her conjunctival injection is secondary to exposure keratitis given that she cannot completely close her eye. Hematologic labs reviewed by me and are nonactionable no significant leukocytosis no critical electrolyte abnormality or JOSSELYN and no coagulopathy initial troponin undetectably low. Noncontrasted CT scan of the head and CTA head neck no acute intracranial abnormality no large vessel occlusion less than 50% stenosis proximal ICAs. Neurology consultation pending at time of transition of care to the oncoming physician, Dr. Hernandez. Critical Care Critical Care Time Critical Care Time: No
[2025-06-25] MEDS: IOPAMIDOL-370 (76%);100ML BOTTLE 80 ML IV (14:49)
[2025-06-25] MEDS: 0.9 % SODIUM CHLORIDE 50 ML VIAL IV (14:49)
[2025-06-25] MEDS: SODIUM CHLORIDE 0.9% 10ML SYR (RAD ONLY) 10 ML IV (14:49)
[2025-06-25 14:53] LABS: Albumin Level 4.5 g/dl (3.5-5.0); Chloride 102 mmol/L (98-107); Potassium 4.5 mmoL/L (3.5-5.1); Sodium 138 mmol/L (136-145)
[2025-06-25 14:55] LABS: Blood Urea Nitrogen 18 mg/dl (7-17); Creatinine Clearance Estimated 79 mL/min (50-200); Creatinine,Serum 0.80 mg/dl (0.52-1.04); Estimated Glomerular Filt Rate 72 ml/min (>60); GFR (African American) 87 ML/MIN (>60)
[2025-06-25 14:56] LABS: Alanine Aminotransferase 20 U/L (12-78); Albumin/Globulin Ratio 1.2 (1.1-1.8); Alkaline Phosphatase 118 U/L (38-126); Anion Gap 9.5 mEq/L (5-15); Aspartate Amino Transferase 38 U/L (14-36); Bilirubin,Total 0.8 mg/dl (0.2-1.3); Calcium 8.7 mg/dl (8.4-10.2); Carbon Dioxide 31 mmol/L (22.0-30.0); Cholesterol 221 mg/dl (140-200); Globulin 3.9 g/dL (1.3-3.2); Glucose 103 mg/dl (74-100); HDL Cholesterol 56 mg/dl (40-60); Total Protein,Serum 8.4 g/dl (6.3-8.2); Triglycerides 274 mg/dl (30-150)
[2025-06-25 15:00] LABS: Hematocrit 48.1 % (37.0-47.0); Hemoglobin 15.6 g/dL (12.2-16.2); Immature Granulocytes % 0.3 %; Mean Corpuscular HGB Conc 32.4 g/dL (31.8-35.4); Mean Corpuscular Hemoglobin 28.5 pg (27.0-31.2); Mean Corpuscular Volume 87.8 fl (81-99); Nucleated Red Blood Cells % 0 %; Platelet Count 263 K/mm3 (142-424); Red Blood Count 5.48 M/mm3 (4.20-5.40); Red Cell Distribution Width-SD 43.7 fL; White Blood Count 6.8 K/mm3 (4.8-10.8)
[2025-06-25 15:01] VITALS: BP 173/66; PULSE 68; RESP 16; O2SAT 100
[2025-06-25] MEDS: ARTIFICIAL TEARS SOLN 15ML BOTTLE OP (15:07)
[2025-06-25 15:10] LABS: Activated Partial Thrombo Time 25.9 seconds (22.8-30.6); INR 0.97 (0.9-1.1); Prothrombin Time 10.8 seconds (10.1-12.5)
[2025-06-25 15:12] LABS: Troponin I < 0.01 ng/ml (0.00-0.034)
--- NOTE | 2025-06-25 15:28 | PC.NURSE ---
On the phone with [facility] now regarding patient per .
--- OUTSIDE RECORDS SUMMARY | 2025-06-25 15:28 | XMS_ITS | CCD ---
Author Organization Unknown Care Team Providers Care Jewel Bearing Grinder Name Role Phone Unavailable Primary Care Provider Unavailabl e Unavailable Chronic Care Management Unavaila ble Summary Purpose DataExchange Insurance Providers Payer name Policy type / Coverage type Covered democrat ID Effective Begin Date Effective End Date [facility] [id number] Unknown Unknown Family History Family History data not found Medication Administered No Medication Administered data Reason For Visit No Reason For Visit data Medical Equipment No Medical Equipment data Advance Directives No Advance Directive data
--- NOTE | 2025-06-25 15:29 | PC.NURSE ---
Dr. Hernandez is currently on the phone with [facility].
[2025-06-25 15:31] VITALS: BP 122/68; PULSE 62; RESP 17; O2SAT 99
[2025-06-25] MEDS: ERYTHROMYCIN BASE 1 GM OINT...G. OP (16:21)
[2025-06-25 16:26] VITALS: BP 104/82; PULSE 74; RESP 16; TEMP 36.7; O2SAT 99
[2025-06-25 16:47] LABS: Hepatitis C Ab Qual. W/ RFX NEGATIVE (Negative)
== END 2025-06-25 16:37 | disposition home or self-care (01) ==
PROVIDERS: Emergency Provider Emergency Medicine; PCP Nurse Practitioner
DX: G51.0 Bell's palsy (principal); I10 Essential (primary) hypertension; E78.5 Hyperlipidemia, unspecified; Z86.79 Personal history of other diseases of the circulatory system; Z95.5 Presence of coronary angioplasty implant and graft
CPT/HCPCS: 70450; 70496; 70498; 80053; 80061; 80320; 84484; 85025; 85610; 85730; 86803; 87389; 93005; 99285; Q9967

== ENCOUNTER 2025-07-14 10:35 | Outpatient (CLI) | payer MEDICARE, SELFPAY ==
--- OUTSIDE RECORDS SUMMARY | 2025-07-14 11:03 | XMS_ITS | Clinical Summary ---
Author Organization [employer] [facility] are Address [address] [place] [id number] Phone Care Team Providers Care Journalism Teacher Name Role Phone Unavailable Unavailable Conditions or Problems No information available. Medications No information available. Medications Administered No information available. Allergies, Adverse Reactions, Alerts No information available. Results No information available. Plan of Care No information available. Procedures No information available. Vital Signs No information available. Immunizations No information available. Advance Directives No information available.
--- OUTSIDE RECORDS SUMMARY | 2025-07-14 11:04 | XMS_ITS | Clinical Summary ---
Author Organization [facility] Address [address] [place] [address] Care Team Providers Care Loader Magazine Grinder Name Role Phone Delphine Paula PA-C Primary Care Provider [phone] Allergies No known active allergies Medications aspirin [...] orosis Screen) 2024 INFLUENZA VACCINE (#1) 2025 CT Colonography Completed HEP A VACCINE Aged Out No longer elig ible based on patient's age to complete this topic HIB VACCINE Aged Out No longer eligi ble based on patient's age to complete this topic ROTOVIRUS VACCINE Aged Out No longer eligible based on patient's age to complete this topic Insurance [employer] BLUE MEDICARE ACCESS Care Teams Loader Magazine Grinder Relationship Specialty Start Date End Date Delphine Paula PA-C [id number] [address] PCP - General Physician Digital Developer 06/13/21
--- OUTSIDE RECORDS SUMMARY | 2025-07-14 11:04 | XMS_ITS | Clinical Summary ---
Author Organization [facility] Address [address] [place] [address] Care Team Providers Care Wardrobe Manager Name Role Phone Unavailable Primary Care Provider [...] 1959 Fecal occult blood test (FOBT,FIT) 1959 MMR Vaccines (1 of 1 - Standard series) 1960 Depression Screening/Follow-Up (PHQ-2/9) 1971 HIV Screening 1974 Hepatitis C Screening 1977 Tetanus/Diphtheria/Pertussi s (1 - Tdap) 1978 HPV/Cotest 1989 Pneumococcal Vaccine: 50+ Years (1 of 1 - PCV) 2009 Zoster Vaccines (1 of 2) 2009 Wellness Visit 06/24/2024 06/24/2023, 06/24/2023 Falls Risk Assessment 2024 COVID-19 Vaccine ( - season) 2025 Influenza Vaccine (#1) 2025 , 07/02/2022, 06/08/2021, Additional history exists Cervical Cancer Screening 07/07/2026 Pap Smear 07/07/2026 07/07/2023, 01/2023, 07/07/2023, Additional history exists Colonoscopy 10/14/2032 10/14/2022, 10/02, 03/02/2018 Colorectal Cancer Screening/Monitoring 10/14/2032 RSV Vaccines (1 - 1-dose 75+ series) 2034 Mammogram Discontinued 01/15/2024, 12/30, 07/06/2020 HIB Vaccines Aged Out No longer eligi ble based on patient's age to complete this topic HPV Vaccines Aged Out No longer eligi ble based on patient's age to complete this topic Hepatitis A Vaccines Aged Out No long er eligible based on patient's age to complete this topic Hepatitis B Vaccines Aged Out No long er eligible based on patient's age to complete this topic IPV Vaccines Aged Out No longer eligi ble based on patient's age to complete this topic Meningococcal ACWY Vaccine Aged Out N o longer eligible based on patient's age to complete this topic Meningococcal B Vaccine Aged Out No l onger eligible based on patient's age to complete this topic Rotavirus Vaccines Aged Out No longer eligible based on patient's age to complete this topic
--- OUTSIDE RECORDS SUMMARY | 2025-07-14 11:04 | XMS_ITS | CCD ---
Author Organization Unknown Care Team Providers Care Substance Abuse Technician Name Role Phone Unavailable Primary Care Provider Unavailabl e Unavailable Chronic Care Management Unavaila ble Summary Purpose DataExchange Insurance Providers Payer name Policy type / Coverage type Covered alliance party ID Effective Begin Date Effective End Date [facility] [id number] Unknown Unknown Family History Family History data not found Medication Administered No Medication Administered data Reason For Visit No Reason For Visit data Medical Equipment No Medical Equipment data Advance Directives No Advance Directive data
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
--- OUTSIDE RECORDS SUMMARY | 2025-07-14 11:04 | XMS_ITS | Encounter Summary ---
Author Organization [facility] [place] [place] [address] Care Team Providers Care Rn Icu Name Role Phone Pat Connelly MD Primary Care Provider Vanessa Burgos MD Primary Care Provider [phone] Karina Beach APRN Primary Care Provider [phone] Encounter Details Date Type Department Care Team (Latest Contact Info) Description 02/12/2013 Pre-Imaging Procedure MD Adult Med [address] [place], [place] [id number] Nikkie Galvez, JULIO Supraclavicular adenopathy (Primary Dx) [...] nodes documented in this encounter Care Teams Rn Icu Relationship Specialty Start Date End Date Pat Connelly MD PCP - General 12/29/10 07/25/13 Vanessa Connelly MD [address] [place] [address] PCP - General Family Medicine 07/26/13 11/20/16 Karina Beach APRN [address] [place] [address] PCP - General Nurse Practitioner-Family 11/21/1601/30 documented as of this encounter
--- OUTSIDE RECORDS SUMMARY | 2025-07-14 11:04 | XMS_ITS | Encounter Summary ---
Author Organization [place] [address] Care Team Providers Care Boat Loader Helper Name Role Phone Pat Connelly MD Primary Care Provider Vanessa Burgos MD Primary Care Provider [phone] Karina Beach APRN Primary Care Provider [phone] Encounter Details Date Type Department Care Team (Latest Contact Info) Description 02/12/2013 Pre-Imaging Procedure Adult Med [address] [place], [place] [id number] Nikkie Galvez, JULIO Supraclavicular adenopathy (Primary Dx) [...] EDT) PT 11.5 9.5 - 12.5 second(s) [facility] INR 1.04 0.88 - 1.13 [facility] Comment: Level of Therapy Indications Target INR Range Standard Dose Treatment and prophylaxis of venous 2.0 - 3.0 thrombosis, pulmonary embolism High Dose High risk patients with mechanical 2.5 - 3.5 heart valves Blood specimen (specimen) UPPER LIMB STRUCTURE / Unknown 02/13/2013 9:14 AM EDT 02/13/2013 9:17 AM EDT us Martin Castanon MD HEMATOLOGY ORDERABLES Final R esult Performing Organization Address City/[facility]/ZIP Co de Phone Number [facility] [address] [place] [address] * (ABNORMAL) CBC (02/13/2013 9:14 AM EDT) WBC 8.1 4.0 - 11.0 x10(3)/mcL [facility] RBC 5.28(H) 4.00 - 5.10 x10(6)/mcL [facility] Hgb 12.2 12.0 - 15.7 gm/dL [facility] Hct 38.8 36.0 - 45.9 % [facility] MCV 73.5(L) 80.0 - 95.8 fL [facility] MCH 23.2(L) 27.0 - 33.2 pg [facility] MCHC 31.5(L) 33.0 - 36.0 gm/dL [facility] RDW 18.1(H) 11.5 - 14.5 % [facility] Platelet 334 150 - 400 x10(3)/mcL [facility] MPV 7.8 7.0 - 12.0 fL [facility] Blood specimen (specimen) UPPER LIMB STRUCTURE / Unknown 02/13/2013 9:14 AM EDT 02/13/2013 9:17 AM EDT us Martin Castanon MD HEMATOLOGY ORDERABLES Final R esult [facility] [address] [place] [address] documented in this encounter Visit Diagnoses Diagnosis Supraclavicular adenopathy- Primary Enlargement of lymph nodes documented in this encounter Care Teams Boat Loader Helper Relationship Specialty Start Date End Date Pat Connelly MD PCP - General 12/29/10 07/25/13 Vanessa Connelly MD [address] [place] [address] PCP - General Family Medicine 07/26/13 11/20/16 Karina Beach APRN [address] [place], [place] [id number] PCP - General Nurse Practitioner-Family 11/21/1601/30 documented as of this encounter
--- OUTSIDE RECORDS SUMMARY | 2025-07-14 11:04 | XMS_ITS | Data Portability ---
Author Organization [facility] Address [address] [place] [address] Care Team Providers Care Clinical Laboratory Scientist Name Role Phone [facility] Neurologist MICKY ZAIDI [employer] [phone] Assessment Encounter Date Assessment Date Assessment LastModified by Organization Details LastModified Time 12/22/2017 12/22/2017 continue all meds as prescribed. repeat wellness exam in 1 year. [email or web address] Not available 12/25/2017 20:16:06 04/16/2018 04/16/2018 will call with results. refer as indicated. continue meds as prescribed. [email or web address] Not available 04/22/2018 11:12:29 05/25/2018 05/25/2018 benign vertigo, discussed importance of safety and fall reduction until symptoms resolve. meclizine as prescribed. f/u as needed for ongoing or worsening symptoms. [email or web address] Not available 05/25/2018 21:52:34 06/19/2018 06/19/2018 tolerated injections. complete meds as prescribed. [email or web address] Not available 07/12/2018 21:57:32 Plan of Treatment Reminders Order Date Submit Date Provider Last Modified By Organization Details Last Modified Time Details Appointments None recorded. Lab HbA1c (hemoglobi n A1c), blood 2017 018 SHARIF [facility], [address], [address], [place], [address], 8 08:53:52 CMP, serum or plasma 2017 018 SHARIF [facility], [address], [place] [address], [place], [address], 8 08:53:50 hepatic function panel, serum 2017 018 SHARIF [facility], [address], [place] [address], [place], [address], 8 08:53:51 Referral medical nutrition therapy referral 2017 018 Not available 8 13:46:12 Procedures colonoscop y screening (PROC) 2017 018 SHARIF Velez MD, [address] [facility], [place] [address], [place], [address], 8 09:39:52 Surgeries None recorded. Imaging MAMMO, screening, digital, bilateral 2017 018 SHARIF [facility] (Centralized Scheduling), [address] [facility] [address] , [place], [address], 8 05:01:09 Medication Orders nystatin 100,000 unit/mL oral suspension 2017 018 INTERFACE [facility] [id number], [address] [facility] , [place], [address], 8 13:21:37 cyanocobal dangelo (vit B-12) 1,000 mcg/mL injection solution 2017 018 [email or web address] Not available 8 23:45:16 meclizine 25 mg tablet 2017 018 INTERFACE [facility] [id number], [address] [facility] , [place], [address], 8 16:02:54 cyanocobal dangelo (vit B-12) 1,000 mcg/mL injection solution 2017 018 [email or web address] Not available 8 17:12:55 Patient Targets Encounter Date Encounter Id Patient Goals Patient Target Last Modified By Organization Details Last Modified Time 04/30/2018 [id number] 1) Encouraged to follow the meal plan. [...] By Organization Details Last Modified Time 04/30/2018 [id number] medical nutritio n therapy* Not available 04/30/2018 [...] , dipst ick Leukocytes Trace Not Available [address] [place], [address], 12/08/2017 12:55:12/09/19 18 12/08/2017 urina lysis , dipst ick Nitrite negati ve Not Available [address] [place], [address], 12/08/2017 12:55:12/09/19 18 12/08/2017 urina lysis , dipst ick Urobilinogen .2 Not Available [facility] [address] [place], [place] [address] [place], [address], 12/08/2017 12:55:09 12/09/19 18 12/08/2017 urina lysis , dipst ick Protein Negati ve Not Available [address] [place], [address], 12/08/2017 12:55:09 12/09/19 18 12/08/2017 urina lysis , dipst ick pH 5.5 Not Available [address] [place], [address], 12/08/2017 12:55:09 12/09/19 18 12/08/2017 urina lysis , dipst ick Blood Negati ve Not Available [address] [place], [address], 12/08/2017 12:55:12/09/19 18 12/08/2017 urina lysis , dipst ick Specific Media 1.020 Not Available [address] [place], [address], 12/08/2017 12:55:12/09/19 18 12/08/2017 urina lysis , dipst ick Ketone Negati ve Not Available [address] [place], [address], 12/08/2017 12:55:12/09/19 18 12/08/2017 urina lysis , dipst ick Bilirubin Negati ve Not Available [address] [place], [address], 12/08/2017 12:55:12/09/19 18 12/08/2017 urina lysis , dipst ick Glucose Negati ve Not Available [address] [place], [address], 12/08/2017 12:55:09 12/09/19 18 12/08/2017 urina lysis , dipst ick Appearance Cloudy Not Available [facility] [address] [place], [address], 12/08/2017 12:55:09 12/09/19 18 12/08/2017 urina lysis , dipst ick Color Yellow Not Available [facility] [address] [place], [address], 12/08/2017 12:55:09 12/09/19 18 12/09/2017 micro album in, urine albumin, urine <3.0 ug/mL not estab. Not Available [facility] ([facility]) [address] [facility], [place], [address], 12/11/2017 06:06:41 12/09/19 18 12/11/2017 cultu re, urine urine culture, routine Final report Not Available [facility] ([facility]) [address] [place], [address], 12/11/2017 06:06:42 12/09/19 18 12/11/2017 cultu re, urine result 1 Commen t Mixed uroge nital brissa 10,00 0-25, 000 colon y formi ng units per mL Not Available [facility] ([facility]) [address] [place], [address], 12/11/2017 06:06:42 12/09/19 18 12/08/2017 HbA1c (hemo globi n A1c), blood HbA1c 6.5 Not Available [facility] [address] [place], [address], 12/08/2017 12:03:35 04/16/20 18 04/17/2018 CMP, serum or plasm a glucose 137 mg/dL 65-99 above high normal Not Available [facility] ([facility]) [address] [place], [address], 04/17/2018 08:53:50 04/16/20 18 04/17/2018 CMP, serum or plasm a BUN 15 mg/dL 6-24 Not Available [facility] ([facility]) [address] [facility] [place], [address], 04/17/2018 08:53:50 04/16/20 18 04/17/2018 CMP, serum or plasm a creatinine 1.31 mg/dL 0.57-1 .00 above high normal Not Available [facility] ([facility]) [address] [facility] [place], [address], 04/17/2018 08:53:50 04/16/20 18 04/17/2018 CMP, serum or plasm a eGFR if nonafricn AM 45 mL/mi n/1.7 3 >59 below low normal Not Available [facility] ([facility]) [address] [place], [address], 04/17/2018 08:53:50 04/16/20 18 04/17/2018 CMP, serum or plasm a eGFR if africn AM 52 mL/mi n/1.7 3 >59 below low normal Not Available [facility] ([facility]) [address] [place], [address], 04/17/2018 08:53:50 04/16/20 18 04/17/2018 CMP, serum or plasm a BUN/creatini ne ratio 11 9-23 Not Available [facility]) [address] [facility] [place], [address], 04/17/2018 08:53:50 04/16/20 18 04/17/2018 CMP, serum or plasm a sodium 138 mmol/ L 134-14 4 Not Available [facility] ([facility]) [address] [place], [address], 04/17/2018 08:53:50 04/16/20 18 04/17/2018 CMP, serum or plasm a potassium 4.7 mmol/ L 3.5-5. 2 Not Available [facility] ([facility]) [address] [facility] [place], [address], 04/17/2018 08:53:50 04/16/20 18 04/17/2018 CMP, serum or plasm a chloride 96 mmol/ L 96-106 Not Available [facility] ([facility]) [address] [facility] [place], [address], 04/17/2018 08:53:50 04/16/20 18 04/17/2018 CMP, serum or plasm a carbon dioxide, total 24 mmol/ L 20-29 Not Available [facility] ([facility]) [address] [facility] [place], [address], 04/17/2018 08:53:50 04/16/20 18 04/17/2018 CMP, serum or plasm a calcium 9.6 mg/dL 8.7-10 .2 Not Available [facility] ([facility]) [address] [facility] [place], [address], 04/17/2018 08:53:50 04/16/20 18 04/17/2018 CMP, serum or plasm a protein, total 7.3 g/dL 6.0-8. 5 Not Available [facility] ([facility]) [address] [facility] [place], [address], 04/17/2018 08:53:50 04/16/20 18 04/17/2018 CMP, serum or plasm a albumin 4.2 g/dL 3.5-5. 5 Not Available [facility] ([facility]) [address] [facility] [place], [address], 04/17/2018 08:53:50 04/16/20 18 04/17/2018 CMP, serum or plasm a globulin, total 3.1 g/dL 1.5-4. 5 Not Available [facility] ([facility]) [address] [facility] [place], [address], 04/17/2018 08:53:50 04/16/20 18 04/17/2018 CMP, serum or plasm a A/G ratio 1.4 1.2-2. 2 Not Available [facility] ([facility]) [address] [facility] [place], [address], 04/17/2018 08:53:50 04/16/20 18 04/17/2018 CMP, serum or plasm a bilirubin, total <0.2 mg/dL 0.0-1. 2 Not Available [facility] ([facility]) [address] [facility] [place], [address], 04/17/2018 08:53:50 04/16/20 18 04/17/2018 CMP, serum or plasm a alkaline phosphatase 106 IU/L 39-117 Not Available [facility] [address] [facility] [place], [address], 04/17/2018 08:53:50 04/16/20 18 04/17/2018 CMP, serum or plasm a AST (SGOT) 17 IU/L 0-40 Not Available [facility] ([facility]) [address] [facility] [place], [address], 04/17/2018 08:53:50 04/16/20 18 04/17/2018 CMP, serum or plasm a ALT (SGPT) 15 IU/L 0-32 Not Available [facility] ([facility]) [address] [facility] [place], [address], 04/17/2018 08:53:50 04/16/20 18 04/17/2018 hepat ic funct ion panel , serum bilirubin, direct 0.06 mg/dL 0.00-0 .40 Not Available [facility] ([facility]) [address] [facility] [place], [address], 04/17/2018 08:53:51 04/16/20 18 04/17/2018 HbA1c (hemo globi n A1c), blood hemoglobin A1C 8.0 % 4.8-5. 6 above high normal Predi abete s: 5.7 - 6.4 Diabe jaison: >6.4 Glyce antonia contr ol for adult s with diabe jaison: <7.0 Not Available [facility] ([facility]) [address], [place], [address], 04/17/2018 08:53:52 01/06/20 18 01/05/2018 [place], kidne y No observ ation record ed. [email or web address] [facility] ([facility]) [address], [place], [address], 01/05/2018 12:56:56 09/03/1904/10/2018 CT, chest , w/o contr ast No observ ation record ed. BARCODE Not Available 2018 13:40:00 Result Notes None recorded. Problems Name Problem SNOMED Code Status Onset Date Resolution Date Notes Provider Name and Address Organization Details Recorded Time Irritable bowel syndrome 51298184 Active 2016 Xiang Snedegar null, [place] - [facility] 7 14:42:52 Hypertensiv e disorder 86652429 Active 2016 Xiang Snedegar [place], [place] - [facility] 7 14:42:56 Gastroesoph ageal reflux disease 973997196 Active 2016 Xiang Snedegar [place], [place] - [facility] 7 14:43:00 Restless legs syndrome 50171541 Active 2016 Xiang Snedegar [place], [place] - [facility] 7 14:43:08 Hyperlipide teddy 05822133 Active 2016 Xiang Snedegar [place], [place] - [facility] 7 14:43:13 Pain in bilateral legs 8529697049941 9108 Active 2016 Karina Beach APRN [address], [place], [address], [place] - [facility] 7 12:56:05 Type 2 diabetes mellitus 32114737 Active 2017 Karina Beach APRN [address], [place], [address], [place] - [facility] 8 09:23:31 Chronic kidney disease stage 3 980188642 Active 2017 stage 3b Karina Beach APRN [address], [place], [address], [facility] 8 11:59:11 Diverticula r disease of colon 418878338 Active 2017 Karina Beach APRN [address], [place], [address], [facility] 8 10:04:55 Problem Notes None recorded. Procedures Surgical History Date Name Laterality Status Provider Name and Address Organization Details Recorded Time 8 Advance Care Planning completed Xiang Snedegar [facility] 12/22/2017 10:15:18 Cardiac Surgery completed Xiang Snedegar [facility] 05/19/2017 14:46:25 tonsilectomy/ad enoids completed Xiang Snedegar [facility] 05/19/2017 14:46:51 Endometrial Ablation completed Xiang Snedegar [facility] 05/19/2017 14:47:26 Imaging Results None recorded. Procedure Notes None recorded. Medical Equipment None Reported. Allergies Allergen ID Allergen Name Allergen Category Reaction Reaction Severity Criticality Documentation Date Start Date Code Code System Note Provider Name and Address Organization Details Recorded Time 12697 atorvasta tin calcium medicatio n myalgias (muscle pain) Not available Not available 06/07/20162013 91339 RxNorm React ion: muscl e pain; Not Available [facility] 6 09:08:49 03988 lisinopri l medicatio n cough Not available Not available 06/07/20162009 54813 RxNorm React ion: cough ; Not Available [facility] 6 09:08:50 Medications Name Sig Start [...] on: 12/01/19 14;Indic ation: Muscle Spasm - (.4488 50);Phar Mirta fied: 08/02/20 13 11:52PM Not [...] Available Not Available Nasonex 50 mcg/actua tion [place] inhale 1 spray by nasal route 2 times a day 05/19 completed Nasonex 50 mcg/actu ation nasal spray,no n-aeroso l;Record ed Status: Recorded on: 03/17/20 14 2:47PM;U ser: glascock r;Indica tion: Allergic Rhinitis - (08.2314 00) Not Available Not Available Not Available [...] 10;Indic ation: [place] Deficien cy Anemia - (9543 00);Prin sana: 07/20/20 09 Not Available Not Available Not Available [place] 5 mg-325 mg tablet take 1 tablet by oral route every 4 hours as needed for pain 11/16 completed [place] 5-325 mg oral tablet;R ecorded Status: Recorded on: 06/30/20 14 2:30PM;D iscontin ued Status: Disconti nued on: 11/17/19 15 5:06PM;U ser: glascock r;Indica tion: Pain - (16.8727 00) Not Available Not Available Not Available [...] 14;Indic ation: Major Depressi ve Disorder - (058257 00);Prin sana: 09/16/19 14 Not Available Not [...] Updated DateTime 8 172.72 cm 39.8 kg/m2 380812. 2 g 98.2 [degF] 73 /min 98 % 98 % 124/82 mm[Hg] Xiang Snedegar [place] - [facility] 8 10:31:13 Date Recorded Body height Body mass index (BMI) Body weight Body temperature Heart rate Oxygen saturation Oxygen saturation in Arterial blood by Pulse oximetry Systolic And Diastolic Provider Name and Address Organization Details Last Updated DateTime 8 172.72 cm 39.5 kg/m2 535309. 02 g 98.4 [degF] 74 /min 96 % 96 % 128/84 mm[Hg] Xiang Snedegar [place] - [facility] 8 14:02:39 Date Recorded Body height Body mass index (BMI) Body weight Heart rate Respiratory rate Oxygen saturation Oxygen saturation in Arterial blood by Pulse oximetry Systolic And Diastolic Provider Name and Address Organization Details Last Updated DateTime 8 172.72 cm 39.4 kg/m2 329304. 42 g 74 /min 18 /min 95 % 95 % 130/78 mm[Hg] Amy Mcdonnell [place] - [facility] 8 15:42:01 Date Recorded Body height Body mass index (BMI) Body weight Body temperature Heart rate Oxygen saturation Oxygen saturation in Arterial blood by Pulse oximetry Systolic And Diastolic Provider Name and Address Organization Details Last Updated DateTime 8 172.72 cm 37.6 kg/m2 718046. 32 g 98.1 [degF] 72 /min 98 % 98 % 128/74 mm[Hg] Xiang Snedegar [place] - [facility] 8 12:52:10 Social History Question [...] influenza, unspecified formulation 4 completed Not Available [facility] 10/02/2019 02:21:29 influenza, unspecified formulation 5 completed Not Available [facility] 10/02/2019 02:21:29 influenza, unspecified formulation 6 completed Not Available [facility] 10/02/2019 02:21:29 Influenza, split virus, quadrivalent, preservative 7 completed Not Available [facility] 09/18/2019 03:54:41 Influenza, split virus, quadrivalent, preservative 8 completed Not Available [facility] 09/18/2019 03:55:22 Past Encounters Encounter ID Performer Location Encounter Start Date Encounter Closed Date Diagnosis/Indication Diagnosis SNOMED-CT Code Diagnosis ICD10 Code Diagnosis IMO Codes Diagnosis Note [id number] Karina Beach [facility] [address] [place] [address] 05/19/2017 14:20:48 05/19/2017 17:00:50 Body mass index 30+ - obesity 273953173 Z68.33 Pain in lower limb 45077 006 M79.662 M79.661 M79.671 M79.134 [id number] Karina eBach TOOLS ADMINISTRATOR [facility] [address] [address] 06/16/2017 09:01:31 06/16/2017 10:08:45 Administration of influenza vaccine 20634569 Z23 [id number] Karina Beach [facility] [address] [place] [address] 09/04/2017 10:17:34 09/04/2017 12:17:13 Serous otitis media 72365178 H65.01 [id number] Karina Yong[address] [place] [address] 10/23/2017 09:05:22 10/23/2017 10:01:16 Type 2 diabetes mellitus 05158569 E11.9 Hyperlipidemia 80889069 E78.2 Hypertensive disorder 38 296559 I10 Vitamin B1 2 deficiency (non anemic) 48051145 E53.8 Chronic ki dney disease stage 3 396234054 N18.3 [id number] Karina Yong[address] [place] [address] 12/08/2017 11:26:10 12/08/2017 12:37:35 Cobalamin deficiency 711674425 E53.8 Onychomycosis 943413769 B35.1 left great toe Flank pain 040186511 R10 .9 Type 2 alex betes mellitus 34908926 E11.9 [id number] Karinalisa Beach[address] [address] 12/22/2017 09:57:35 12/22/2017 11:19:25 Adult health examination 782058704 Z00.00 Examinatio n of blood pressure 700879025 Z01.30 Diet education 19709552 Z71.3 Counseling 009429051 Z71 .82 Exercise counseling . Patient encouraged to exercise 30 minutes 5 days a week. Screening mammography 24 132934 Z12.31 Screening colonoscopy 44 6516273 Z12.11 [id number] Karinalisa Beach[address] [place] [address] 04/16/2018 13:51:46 04/16/2018 15:44:25 Cobalamin deficiency 159162897 E53.8 Hepatomegaly 27892349 R1 6.0 Type 2 alex betes mellitus 30389842 E11.9 [id number] Marianne Villeda, MS, RD, [address] [place] [address] 04/30/2018 09:03:39 04/30/2018 10:48:13 Type 2 diabetes mellitus 10906539 E11.8 [id number] Karina Beach APRN [facility] [address] [place] [address] 05/25/2018 14:59:44 05/25/2018 16:41:28 Vertigo 302423149 R42 [id number] Karina Beach APRN [place] [address] [facility] [place] [address] 06/19/2018 12:36:34 06/19/2018 14:39:37 Administration of influenza vaccine 21136266 Z23 Candidiasis of mouth 797 61280 B37.0 Cobalamin deficiency 190 749932 E53.8 Health Concerns Section Related Observation LastModified by Organization Detai ls LastModified Time None Recorded Concern Status LastModified by Organization Details LastModified Time None Recorded Advance Directives Directive N: Payers Insurance Date Sequence Insurance Name Policy Number Policy Robledo Covered Member ID Robledo Member ID Guarantor Name 06/19/2018 [employer] - MEDICARE [facility] (MEDICARE) Jazmine Walters [id number] Jazmine Walters 06/19/2018 1 [place] Jazmine Walters [id number] Jazmine Walters 11/05/2018 2 [facility] [id number] Jazmine Walters [id number] Jazmine Walters Notes Date Note Type Note [...] assistance. Karina Beach APRN [address], [place], [address], [employer] [facility] 12/25/2017 20:17:09 8 text/html presents for B12 injection and for liver function tests per recommendation of specialist for findings of fatty liver on recent testing.denies abdominal pain, bloating, change in appetite or stools or jaundice. Karina Beach APRN [address], [place], [address], [employer] [facility] 04/22/2018 11:13:06 8 text/html Initial [...] with Patient and Food Recall Nutrition Intervention: Slipman Goals: Healthy improvement of blood sugar through [...] headache. Karina Beach APRN [address], [place], [address], [facility] - [facility] 05/25/2018 21:52:54 8 text/html presents for flu and B12 injection and with acute c/o burning/discomfort to roof of her mouth. Karina Beach APRN [address], [place], [address], [facility] - [facility] 07/12/2018 21:58:07 OBGyn Episode No OBEpisode recorded.
--- OUTSIDE RECORDS SUMMARY | 2025-07-14 11:04 | XMS_ITS | Encounter Summary ---
Author Organization [facility] Address [address] [place] [address] Care Team Providers Care Public Relations Supervisor Name Role Phone Unavailable Primary Care [...] HEMOGLOBIN A1C (06/08/2024) Hemoglobin A1C 5.5 % Comment:[facility] us Historical Provider HEALTH MAINTENANCE Final Result documented in this encounter Visit Diagnoses Not on filedocumented in this encounter
[2025-07-14 12:10] VITALS: BP 138/96; PULSE 58; RESP 16
[2025-07-14 12:19] LABS: POC Glucose,Bedside 65 gm/dL (70-110)
--- NOTE | 2025-07-14 12:30 | NM_ITS ---
APPROVED REPORT Exam: Nuclear Stress Test Indication: CAD, DM, High cholesterol, Family history, Fatigue Patient Location: Outpatient Stress Tech: Kassie KAN Tech:Keli Berumen BARBRA RT(R)(N) Ht: 5 ft 8 in Wt: 199 lbs Bra Size: 40DD HR: 56 bpm BP: 138/96 mmHg BSA: 2.04 m2 TID: 1.10 BMI: 30.2 History: CAD, DM, High cholesterol, Family history, Fatigue Procedure: Patient received 0.4 mg of intravenous Lexiscan, resting heart rate 56 bpm, resting blood pressure 138/96 mmHg, with Lexiscan maximum heart rate achieved was 75 bpm which is % of the maximum predicted heart rate and blood pressure was 116/61 mmHg. With Lexiscan, patient denied any complaint of chest pain. Cardiac Stress and Resting SPECT Images: Cardiac Stress and Resting SPECT images were obtained using technetium 99m Myoview 32.7 mCi stress and 10.38 mCi at rest. Resting and stress imaging in supine and prone positions demonstrate a medium sized, moderate, reversible perfusion defect in the LV apical wall, as well as in the basal inferior LV wall. Gated imaging demonstrates moderate reduction in global LV systolic function. LVEF is calculated at 39%. Conclusion: Medium sized, moderate, reversible perfusion defect in the LV apical wall, as well as in the basal inferior LV wall. Findings are suggestive of reversible ischemia. Gated imaging demonstrates moderate reduction in global LV systolic function. LVEF is calculated at 39%. Electronically signed by : Courtney Jones MD 07/18/2025 14:11:08
[2025-07-14] MEDS: ISOTOPE MYOVIEW (PER STUDY) 1 DOSE IV (13:19)
[2025-07-14] MEDS: SODIUM CHLORIDE 0.9% 10ML SYR (RAD ONLY) 10 ML IV ×2 (13:19)
== END 2025-07-14 23:59 | disposition home or self-care (01) ==
LOC: RAD 10:36
PROVIDERS: PCP Nurse Practitioner; Visit Provider Nurse Practitioner Family
DX: I50.20 Unspecified systolic (congestive) heart failure (principal); I25.10 Atherosclerotic heart disease of native coronary artery without angina pectoris; E11.9 Type 2 diabetes mellitus without complications; E78.00 Pure hypercholesterolemia, unspecified; R94.39 Abnormal result of other cardiovascular function study
CPT/HCPCS: 78452; 82962; 93017; 93018; A9502; J2785

== ENCOUNTER 2025-08-22 13:05 | Outpatient (CLI) | payer MEDICARE, SELFPAY ==
--- OUTSIDE RECORDS SUMMARY | 2025-08-22 13:10 | XMS_ITS | Clinical Summary ---
Author Organization [facility] are Address [address] [place] [address] Phone Care Team Providers Care Computer Hardware Engineer Name Role Phone Unavailable Unavailable Conditions or Problems No information available. Medications No information available. Medications Administered No information available. Allergies, Adverse Reactions, Alerts No information available. Results No information available. Plan of Care No information available. Procedures No information available. Vital Signs No information available. Immunizations No information available. Advance Directives No information available.
--- OUTSIDE RECORDS SUMMARY | 2025-08-22 13:11 | XMS_ITS | Clinical Summary ---
Author Organization [facility] Address [address] [place] [address] Care Team Providers Care Brazing Machine Setter Name Role Phone Delphine Paula PA-C Primary Care Provider [phone] Allergies No known active allergies Medications aspirin [...] Insurance [employer] MEDICARE ACCESS Care Teams Brazing Machine Setter Relationship Specialty Start Date End Date Delphine Paula PA-C [address] [address] PCP - General Physician Sales Architect 06/13/21
--- OUTSIDE RECORDS SUMMARY | 2025-08-22 13:11 | XMS_ITS | Encounter Summary ---
Author Organization [place] [address] Care Team Providers Care Cleaner Wall Name Role Phone Pat Connelly MD Primary Care Provider Vanessa Burgos MD Primary Care Provider [phone] Karina Beach APRN Primary Care Provider [phone] Encounter Details Date Type Department Care Team (Latest Contact Info) Description 02/12/2013 Pre-Imaging Procedure MD Adult Med [address] [place], [place] [id number] Nikkie Galvez, JULIO Supraclavicular adenopathy (Primary Dx) [...] nodes documented in this encounter Care Teams Cleaner Wall Relationship Specialty Start Date End Date Pat Connelly MD PCP - General 12/29/10 07/25/13 Vanessa Connelly MD [address] [place] [address] PCP - General Family Medicine 07/26/13 11/20/16 Karina Beach APRN [address] [place] [address] PCP - General Nurse Practitioner-Family 11/21/1601/30 documented as of this encounter
--- OUTSIDE RECORDS SUMMARY | 2025-08-22 13:11 | XMS_ITS | Encounter Summary ---
Author Organization [place] [address] Care Team Providers Care Director Telemetry Name Role Phone Pat Connelly MD Primary Care Provider Vanessa Burgos MD Primary Care Provider [phone] Karina Beach APRN Primary Care Provider [phone] Encounter Details Date Type Department Care Team (Latest Contact Info) Description 02/12/2013 Pre-Imaging Procedure Adult Med [address] [place], [place] [id number] Nikkie Galvez, JULIO Supraclavicular adenopathy (Primary Dx) [...] EDT) PT 11.5 9.5 - 12.5 second(s) [facility] INR 1.04 0.88 - 1.13 [facility] Comment: Level of Therapy Indications Target INR Range Standard Dose Treatment and prophylaxis of venous 2.0 - 3.0 thrombosis, pulmonary embolism High Dose High risk patients with mechanical 2.5 - 3.5 heart valves Blood specimen (specimen) UPPER LIMB STRUCTURE / Unknown 02/13/2013 9:14 AM EDT 02/13/2013 9:17 AM EDT us Martin Castanon MD HEMATOLOGY ORDERABLES Final R esult Performing Organization Address City/[facility]/ZIP Co de Phone Number [facility] [address] [place] [address] * (ABNORMAL) CBC (02/13/2013 9:14 AM EDT) WBC 8.1 4.0 - 11.0 x10(3)/mcL [facility] RBC 5.28(H) 4.00 - 5.10 x10(6)/mcL [facility] Hgb 12.2 12.0 - 15.7 gm/dL [facility] Hct 38.8 36.0 - 45.9 % [facility] MCV 73.5(L) 80.0 - 95.8 fL [facility] MCH 23.2(L) 27.0 - 33.2 pg [facility] MCHC 31.5(L) 33.0 - 36.0 gm/dL [facility] RDW 18.1(H) 11.5 - 14.5 % [facility] Platelet 334 150 - 400 x10(3)/mcL [facility] MPV 7.8 7.0 - 12.0 fL [facility] Blood specimen (specimen) UPPER LIMB STRUCTURE / Unknown 02/13/2013 9:14 AM EDT 02/13/2013 9:17 AM EDT us Martin Castanon MD HEMATOLOGY ORDERABLES Final R esult [facility] [address] [place] [address] documented in this encounter Visit Diagnoses Diagnosis Supraclavicular adenopathy- Primary Enlargement of lymph nodes documented in this encounter Care Teams Director Telemetry Relationship Specialty Start Date End Date Pat Connelly MD PCP - General 12/29/10 07/25/13 Vanessa Connelly MD [address] [place] [id number] PCP - General Family Medicine 07/26/13 11/20/16 Karina Beach APRN [address] [place], [place] [id number] PCP - General Nurse Practitioner-Family 11/21/1601/30 documented as of this encounter
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
--- OUTSIDE RECORDS SUMMARY | 2025-08-22 13:11 | XMS_ITS | Clinical Summary ---
Author Organization [facility] Address [address] [place] [address] Care Team Providers Care Instrumentation Chemist Name Role Phone Unavailable Primary Care Provider [...] 1959 Fecal occult blood test (FOBT,FIT) 1959 Depression Screening/Follow-Up (PHQ-2/9) 1971 HIV Screening 1974 [...]
--- OUTSIDE RECORDS SUMMARY | 2025-08-22 13:11 | XMS_ITS | CCD ---
Author Organization Unknown Care Team Providers Care Informatics Coordinator Name Role Phone Unavailable Primary Care Provider Unavailabl e Unavailable Chronic Care Management Unavaila ble Summary Purpose DataExchange Insurance Providers Payer name Policy type / Coverage type Covered constitution party ID Effective Begin Date Effective End Date [facility] [id number] Unknown Unknown Family History Family History data not found Medication Administered No Medication Administered data Reason For Visit No Reason For Visit data Medical Equipment No Medical Equipment data Advance Directives No Advance Directive data
--- OUTSIDE RECORDS SUMMARY | 2025-08-22 13:11 | XMS_ITS | Encounter Summary ---
Author Organization [facility] Address [address] [place] [address] Care Team Providers Care Freezer Machine Operator Name Role Phone Unavailable Primary Care Provider [...] HEMOGLOBIN A1C (06/08/2024) Hemoglobin A1C 5.5 % Comment:[facility] us Historical Provider HEALTH MAINTENANCE Final Result documented in this encounter Visit Diagnoses Not on filedocumented in this encounter
--- NOTE | 2025-08-22 13:45 | CA_ITS ---
APPROVED REPORT EXAM: Limited 2D Echocardiogram Delimber Operator: Amy Loyola RVT Ht: 5 ft 6 in Wt: 203lbs BSA: 2.01 BP: 118/55 mmHg Indications: HFrEF,EF CHECK 2D Dimensions IVSd 1.04 cm F: 0.6-1.0 LVEF (Visual) 50.80 % PWd 0.96 cm F: 0.6 - 1.0 EF AP4 51.50 % LVDd 4.61 cm F: 3.9 - 5.3 GL Strain -20.6 % LVDs 3.42 cm F: 2.2 - 3.5 Left Atrium 3.13 cm F: 2.7 - 3.8 M-Mode Dimensions LVDd 4.61 cm (3.5-5.7) Ao Diam 2.82 cm (2.0-3.7) LVDs 3.42 cm (3.5-5.7) IVSd 1.04 cm (0.6-1.1) PWd 0.96 cm (0.6-1.1) FS 25.80% Other Information Study Quality: Fair Conclusion This is a limited TTE to evaluate for LV systolic function. Limited windows are obtained. The left ventricle is normal in size. There is increased LV wall thickness. There is mild reduction in global LV systolic function. LVEF is 40-45%. Electronically signed by : Courtney Jones MD 08/30/2025 12:25:49
== END 2025-08-22 23:59 | disposition home or self-care (01) ==
LOC: RT 13:06
PROVIDERS: PCP Nurse Practitioner; Visit Provider Nurse Practitioner Family
DX: I50.21 Acute systolic (congestive) heart failure (principal)
CPT/HCPCS: 93308